=== PATIENT | male | born 1940 | race Caucasian/White ===

== ENCOUNTER → 2016-07-07 | Emergency (ER) | payer MEDICARE, OTHER ==
[~2016-07-07] VITALS: Ht 172.7 cm; Wt 86.2 kg
[~2016-07-07] MED LIST: ACET1TAB45 PO; AMLO10TA4 PO; AMOX500C2 PO; ASPI-999 PO; ATOR80TA64 PO; CARI350T27 PO; D50KC PO; HYDR-757 PO; INSU100I10 SQ; INSU100I14 SQ; LISI40TA PO; METO100T2 PO; NS IV 1000 ML 1,000 ML IV SCH; NS IV 500 ML 500 ML IV SCH; PRIM50TA PO; QUET25TA73 PO; TRAZ-28 PO; cefTRIAXone INJECTION 1,000 MG in NS (IVPB) 50 ML IV ONE; fentaNYL INJECTION 100 MCG/2 ML AMP IVP ONE; inSUlin (REGULAR) HUMAN 1 UNIT/0.01 ML (CHARGE PER UNIT) IV ONE
--- NOTE | 2016-07-07 14:27 | ED Lower Extremity ---
General Chief Complaint: Trauma-Non Activation Stated Complaint: FALL/FACIAL INJURY Nursing Triage Note: SEE TRIAGE NOTE Nursing Sepsis Screen: No Definite Risk Source: patient Exam Limitations: no limitations History of Present Illness Time seen by provider: 14:24 Initial Comments To ER per private vehicle with c/o fall and facial injury. This caused a nosebleed and bruised top lip. He states that he fell because he has been very weak and lightheaded. He's had some intermittent chest pain shortness of breath over the course of the past week. He was going to see his primary care provider at the [facility] in [place] when this fall took place. Onset: just prior to arrival Severity: moderate Method of Injury: fell Modifying Factors: Worse With Movement Allergies and Home Medications Allergies Coded Allergies: metformin (Verified Allergy, Unknown, 10/22/14) Home Medications Amlodipine Besylate 10 Mg Tablet, 10 MG PO DAILY, (Reported) Amoxicillin 500 Mg Capsule, 500 MG PO TID, #21 Prescribed by: VENESSA PAULSON on 07/07/16 1755 Aspirin 81 Mg Tab.chew, 81 MG PO DAILY, (Reported) Atorvastatin Calcium 80 Mg Tablet, 80 MG PO HS, (Reported) Ergocalciferol (Vitamin D2) 50,000 Unit Capsule, 50,000 UNIT PO WEEKLY, ( Reported) Hydrocodone/Acetaminophen 1 Each Tablet, 1 EACH PO Q6H PRN for PAIN-MODERATE, # 10 Prescribed by: VENESSA PAULSON on 07/07/16 1806 Insulin Aspart 300 Units/3 Ml Solution, 10 UNITS SQ TID AC, (Reported) Insulin Glargine,Hum.rec.anlog 100 Unit/1 Ml Insuln.pen, 20 UNIT SQ HS, ( Reported) Lisinopril 40 Mg Tablet, 40 MG PO DAILY, (Reported) Metoprolol Tartrate 100 Mg Tablet, 100 MG PO BID, (Reported) Quetiapine Fumarate 25 Mg Tablet, 100 MG PO HS, #1 Prescribed by: CORDELIA CHAMPION on 10/23/14 1730 Constitutional: see HPI EENTM: epistaxis, see HPI Respiratory: see HPI, short of breath Cardiovascular: see HPI, chest pain Genitourinary: no symptoms reported Musculoskeletal: no symptoms reported Skin: no symptoms reported Psychiatric/Neurological: No Symptoms Reported (portable) Past Ymqjjja-Szthty-Ynsxpm Hx Patient Social History Alcohol Use: Denies Use Recreational Drug Use: Yes (Not since 1990) Smoking Status: Never a Smoker Former Smoker/When Quit: Oct 23, 1990 Recent Foreign Travel: No Contact w/Someone Who Travel: No Recent Infectious Disease Expo: No Recent Hopitalizations: No Seasonal Allergies Seasonal Allergies: Yes Surgeries HX Surgeries: Yes (ELECTRO SHOCK THERAPY, COLONOSCOPY) Respiratory Hx Respiratory Disorders: No Cardiovascular Hx Cardiac Disorders: No Neurological Hx Neurological Disorders: Yes (WAS TOLD HE HAD A STROKE FROM CT) Neurological Disorders: Stroke Genitourinary Hx Genitourinary Disorders: Yes Genitourinary Disorders: Prostate Problems, UTI-Chronic Gastrointestinal Hx Gastrointestinal Disorders: Yes Gastrointestinal Disorders: Polyps, Irritable Bowel Musculoskeletal Hx Musculoskeletal Disorders: Yes Musculoskeletal Disorders: Arthritis, Chronic Back Pain Endocrine Hx Endocrine Disorders: Yes Endocrine Disorders: Diabetes, Insulin dep Cancer Hx Cancer: No Psychosocial Hx Psychiatric Problems: Yes Behavioral Health Disorders: Anxiety, Depression Integumentary HX Skin/Integumentary Disorder: No Blood Transfusions Hx Blood Disorders: No Family Medical History Significant Family History: No Pertinent Family Hx Family Medial History: Alcoholism 19 FATHER Bipass surgery G8 BROTHER Brain cancer 19 MOTHER Diabetes mellitus 19 FATHER Respiratory disorder G8 BROTHER Physical Exam Vital Signs Vital Sign - Last 12Hours 07/07/16 14:00 Temp 98.2 Pulse 91 Resp 18 B/P (MAP) 131/78 Capillary Refill : Less Than 3 Seconds General Appearance: WD/WN, no apparent distress HEENT: PERRL/EOMI, normal ENT inspection Neck: non-tender, full range of motion Cardiovascular: regular rate, rhythm, no murmur Respiratory: normal breath sounds, no respiratory distress, no accessory muscle use Hips: bilateral hip non-tender, bilateral hip normal inspection, bilateral hip normal range of motion Legs: bilateral leg non-tender, bilateral leg normal inspection, bilateral leg normal range of motion Knees: bilateral knee non-tender, bilateral knee normal inspection, bilateral knee normal range of motion Ankles: bilateral ankle non-tender, bilateral ankle normal inspection, bilateral ankle normal range of motion Feet: bilateral foot non-tender, bilateral foot normal inspection, bilateral foot normal range of motion Neurologic/Psychiatric: alert, normal mood/affect, oriented x 3 Skin: normal color, warm/dry Progress/Results/Core Measures Results/Orders Lab Results Laboratory Tests Test 07/07/16 14:21 07/07/16 16:38 5/4/17 16:45 Range/Units White Blood Count 12.6 H 4.3-11.0 10^3/uL Red Blood Count 4.63 4.35-5.85 10^6/uL Hemoglobin 13.8 13.3-17.7 G/DL Hematocrit 40 40-54 % Mean Corpuscular Volume 85 80-99 FL Mean Corpuscular Hemoglobin 30 25-34 PG Mean Corpuscular Hemoglobin Concent 35 32-36 G/DL Red Cell Distribution Width 13.1 10.0-14.5 % Platelet Count 321 130-400 10^3/uL Mean Platelet Volume 9.8 7.4-10.4 FL Neutrophils (%) (Auto) 77 H 42-75 % Lymphocytes (%) (Auto) 13 12-44 % Monocytes (%) (Auto) 10 0-12 % Eosinophils (%) (Auto) 0 0-10 % Basophils (%) (Auto) 0 0-10 % Neutrophils # (Auto) 9.7 H 1.8-7.8 X 10^3 Lymphocytes # (Auto) 1.7 1.0-4.0 X 10^3 Monocytes # (Auto) 1.2 H 0.0-1.0 X 10^3 Eosinophils # (Auto) 0.0 0.0-0.3 10^3/uL Basophils # (Auto) 0.0 0.0-0.1 10^3/uL Sodium Level 130 L 135-145 MMOL/L Potassium Level 4.1 3.6-5.0 MMOL/L Chloride Level 99 98-107 MMOL/L Carbon Dioxide Level 18 L 21-32 MMOL/L Anion Gap 13 5-14 MMOL/L Blood Urea Nitrogen 41 H 7-18 MG/DL Creatinine 1.97 H 0.60-1.30 MG/DL Estimat Glomerular Filtration Rate 33 BUN/Creatinine Ratio 21 Glucose Level 539 *H 70-105 MG/DL Calcium Level 9.0 8.5-10.1 MG/DL Total Bilirubin 0.7 0.1-1.0 MG/DL Aspartate Amino Transf (AST/SGOT) 16 5-34 U/L Alanine Aminotransferase (ALT/SGPT) 17 0-55 U/L Alkaline Phosphatase 79 40-136 U/L Troponin I < 0.30 <0.30 NG/ML Total Protein 6.7 6.4-8.2 G/DL Albumin 3.7 3.2-4.5 G/DL Glucometer 299 H 70-110 MG/DL Urine Color YELLOW Urine Clarity CLEAR Urine pH 5 5-9 Urine Specific [place] 1.015 L 1.016-1.022 Urine Protein 1+ H NEGATIVE Urine Glucose (UA) 4+ H NEGATIVE Urine Ketones 3+ H NEGATIVE Urine Nitrite NEGATIVE NEGATIVE Urine Bilirubin NEGATIVE NEGATIVE Urine Urobilinogen NORMAL NORMAL MG/DL Urine Leukocyte Esterase NEGATIVE NEGATIVE Urine RBC (Auto) NEGATIVE NEGATIVE Urine RBC NONE /HPF Urine WBC NONE /HPF Urine Squamous Epithelial Cells 0-2 /HPF Urine Crystals NONE /LPF Urine Bacteria NONE /HPF Urine Casts NONE /LPF Urine Mucus NEGATIVE /LPF Urine Culture Indicated NO Urine Opiates Screen NEGATIVE NEGATIVE Urine Oxycodone Screen NEGATIVE NEGATIVE Urine Methadone Screen NEGATIVE NEGATIVE Urine Propoxyphene Screen NEGATIVE NEGATIVE Urine Barbiturates Screen NEGATIVE NEGATIVE Ur Tricyclic Antidepressants Screen NEGATIVE NEGATIVE Urine Phencyclidine Screen NEGATIVE NEGATIVE Urine Amphetamines Screen NEGATIVE NEGATIVE Urine Methamphetamines Screen NEGATIVE NEGATIVE Urine Benzodiazepines Screen NEGATIVE NEGATIVE Urine Cocaine Screen NEGATIVE NEGATIVE Urine Cannabinoids Screen NEGATIVE NEGATIVE My Orders Orders - VENESSA PAULSON APRN Ct Head/Face/Cervical Wo (07/07/16 14:23) Chest 1 View, Ap/Pa Only (07/07/16 14:23) Ua Culture If Indicated (07/07/16 14:23) Drug Screen Stat (Urine) (07/07/16 14:23) Cbc With Automated Diff (07/07/16 14:23) Comprehensive Metabolic Panel (07/07/16 14:23) Ekg Tracing (07/07/16 14:23) Troponin I (07/07/16 14:23) Saline Lock/Iv-Start (07/07/16 14:23) Fentanyl Injection (Sublimaze Injection (07/07/16 14:30) Ns Iv 1000 Ml (Sodium Chloride 0.9%) (07/07/16 15:30) Insulin (Regular) Human (Humulin R (Per (07/07/16 15:30) Ceftriaxone Injection (Rocephin Injectio (07/07/16 16:00) Accucheck Stat ONCE (07/07/16 16:31) Ns Iv 500 Ml (Sodium Chloride 0.9%) (07/07/16 17:00) Insulin (Regular) Human (Humulin R (Per (07/07/16 17:00) Accucheck Stat ONCE (07/07/16 17:32) Insulin (Regular) Human (Humulin R (Per (07/07/16 19:00) Medications Given in ED Current Medications Medications Dose Ordered Sig/Oly Route Start Time Stop Time Status Last Admin Dose Admin Ceftriaxone Sodium 1000 mg/ Sodium Chloride 50 ml @ 100 mls/hr ONCE ONCE IV 07/07/16 16:00 07/07/16 16:29 DC 07/07/16 16:57 100 MLS/HR Fentanyl Citrate 50 mcg ONCE ONCE IVP 07/07/16 14:30 07/07/16 14:31 DC 07/07/16 14:37 50 MCG Insulin Human Regular 4 unit ONCE ONCE IV 07/07/16 17:00 07/07/16 17:01 DC 07/07/16 17:07 4 UNIT Insulin Human Regular 10 unit ONCE ONCE IV 07/07/16 15:30 07/07/16 15:31 DC 07/07/16 15:43 10 UNIT Vital Signs/I&O Vital Sign - Last 12Hours 07/07/16 14:00 Temp 98.2 Pulse 91 Resp 18 B/P (MAP) 131/78 Blood Pressure Mean: 95 Diagnostic Imaging Diagonstic Imaging: CT Comments NAME: JHONNY DUTTON [employer] REC#: [id number] PT STATUS: REG ER : 1940 PHYSICIAN: VENESSA PAULSON APRN ADMIT DATE: 07/07/16/ER Signed Date of Exam:07/07/16 CT HEAD/FACE/CERVICAL WO PROCEDURE: CT head, face, and cervical spine without contrast. TECHNIQUE: Multiple contiguous axial images were obtained through the head, neck, and facial bones without the use of intravenous contrast. Sagittal and coronal reformations through the cervical spine and facial bones were also performed. INDICATION: Injury with swelling of the nose. The patient passed out. FINDINGS: CT HEAD: There is no intracranial hemorrhage, edema or mass-effect. The brain parenchyma and huertas-white matter differentiation appear preserved. There is hypodensity in the periventricular white matter and near the genu of the corpus callosum to the left of the midline, likely related to chronic microvascular ischemic changes. There is no hydrocephalus. No extra-axial fluid collection is seen. The calvarium appears grossly unremarkable. CT FACE: There are bilateral nondisplaced nasal bone fractures. Soft tissue air in the nose anterior to the nasal bone margin is seen on both sides. The orbital gallagher are intact. The zygomatic arches are intact. The frontal sinuses, the ethmoid air cells, and the maxillary and sphenoidal sinuses are well-aerated with no hemorrhage or sinus wall fracture seen. The pterygoid plates appear intact. The mandible is intact. The soft tissues and the orbits demonstrate symmetric globes and retrobulbar space with no hemorrhage. CT CERVICAL SPINE: There is satisfactory alignment of the posterior spinal line and at the facet joints. There is slight left convexity curvature seen on the coronal images, which could be positional. There is satisfactory alignment at the lateral masses of C1 and C2 and at the atlantooccipital joints. Only mild rotation of C1 and C2 is appreciated, likely positional. There is no widening of the predental space. The vertebral body heights are preserved. Disc heights are generally preserved, as well. There are small posterior osteophytes at C3/C4 level and at C6/7 level. Severe neuroforaminal narrowing on the right side at C4/5 and C5/6 levels seen. There is probably mild spinal canal stenosis at C3/4 level. IMPRESSION: CT head: No intracranial hemorrhage. CT face: Nondisplaced bilateral nasal bone fractures. Tiny air bubbles are also seen in the soft tissue of the nose just anterior to the nasal bones. CT cervical spine: Advanced degenerative changes. No fracture seen. Dictated by: Dictated on workstation # [id number] Dict: 07/07/16 1506 Trans: 07/07/16 1546 [facility] [id number] Interpreted by: RAYMON MUSA MD Electronically signed by: RAYMON MUSA MD 07/07/16 5906 Departure Communication Progress Notes Patient's blood sugar had gone down to 299. We rechecked it and gone back at 326. We then found out patient's friend had brought him a regular Coca-Cola which he had been drinking (not diet). Impression Impression: Primary Impression: Poorly controlled diabetes mellitus Additional Impression: Nasal bone fracture Disposition: 01 HOME, SELF-CARE Condition: Stable Departure-Patient Inst. Decision time for Depature: 16:31 Referrals: NO,LOCAL PHYSICIAN (PCP/Family) Primary Care Physician Patient Instructions: DIABETES, Nose Fracture Add. Discharge Instructions: 1. Return to ER for any concerns 2. Keep a closer eye on your blood sugar as it was very elevated. Check your blood sugars 4 times daily All discharge instructions reviewed with patient and/or family. Voiced understanding. Scripts Hydrocodone/Acetaminophen ([place] 5-325 Tablet) 1 Each Tablet 1 EACH PO Q6H Y for PAIN-MODERATE, #10 TAB Prov: VENESSA PAULSON APRN 07/07/16 Amoxicillin (Amoxicillin) 500 Mg Capsule 500 MG PO TID, #21 CAP Prov: VENESSA PAULSON APRN 07/07/16 VENESSA PAULSON APRN July 07, 2016 14:27
[2016-07-07 14:41] LABS: BASOPHILS % (AUTO) 0 % (0-10); EOSINOPHILS % (AUTO) 0 % (0-10); LYMPHOCYTES # (AUTO) 1.7 X 10^3 (1.0-4.0); LYMPHOCYTES % (AUTO) 13 % (12-44); MEAN CORPUSCULAR HEMOGLOBIN 30 PG (25-34); MEAN CORPUSCULAR HGB CONC 35 G/DL (32-36); MEAN CORPUSCULAR VOLUME 85 FL (80-99); MEAN PLATELET VOLUME 9.8 FL (7.4-10.4); MONOCYTES # (AUTO) 1.2 X 10^3 (0.0-1.0); MONOCYTES % (AUTO) 10 % (0-12); NEUTROPHILS # (AUTO) 9.7 X 10^3 (1.8-7.8); NEUTROPHILS % (AUTO) 77 % (42-75); PLATELET COUNT 321 10^3/uL (130-400); RED BLOOD COUNT 4.63 10^6/uL (4.35-5.85); RED CELL DISTRIBUTION WIDTH 13.1 % (10.0-14.5); WHITE BLOOD COUNT 12.6 10^3/uL (4.3-11.0)
[2016-07-07 15:00] LABS: ALANINE AMINOTRANSFERASE 17 U/L (0-55); ALBUMIN 3.7 G/DL (3.2-4.5); ANION GAP 13 MMOL/L (5-14); ASPARTATE AMINO TRANSFERASE 16 U/L (5-34); BILIRUBIN,TOTAL 0.7 MG/DL (0.1-1.0); BLOOD UREA NITROGEN 41 MG/DL (7-18); BUN/CREATININE RATIO 21; CARBON DIOXIDE 18 MMOL/L (21-32); CHLORIDE 99 MMOL/L (98-107); CREATININE SERUM 1.97 MG/DL (0.60-1.30); GFR ESTIMATED 33; POTASSIUM 4.1 MMOL/L (3.6-5.0); SODIUM 130 MMOL/L (135-145); TOTAL PROTEIN 6.7 G/DL (6.4-8.2)
[2016-07-07 15:01] LABS: GLUCOSE 539 MG/DL (70-105)
[2016-07-07 15:06] LABS: TROPONIN I < 0.30 NG/ML (<0.30)
--- NOTE | 2016-07-07 15:31 | Diagnostic Imaging Report ---
INDICATION: Fall with facial injury. Frontal chest obtained at 03:16 p.m. Heart is normal in size. Lungs are clear. There is no pneumothorax or pleural fluid. There is no overt bony abnormality in the chest. IMPRESSION: Negative chest. Dictated by: Dictated on workstation # [id number]
--- NOTE | 2016-07-07 15:43 | Diagnostic Imaging Report ---
PROCEDURE: CT head, face, and cervical spine without contrast. TECHNIQUE: Multiple contiguous axial images were obtained through the head, neck, and facial bones without the use of intravenous contrast. Sagittal and coronal reformations through the cervical spine and facial bones were also performed. INDICATION: Injury with swelling of the nose. The patient passed out. FINDINGS: CT HEAD: There is no intracranial hemorrhage, edema or mass-effect. The brain parenchyma and huertas-white matter differentiation appear preserved. There is hypodensity in the periventricular white matter and near the genu of the corpus callosum to the left of the midline, likely related to chronic microvascular ischemic changes. There is no hydrocephalus. No extra-axial fluid collection is seen. The calvarium appears grossly unremarkable. CT FACE: There are bilateral nondisplaced nasal bone fractures. Soft tissue air in the nose anterior to the nasal bone margin is seen on both sides. The orbital gallagher are intact. The zygomatic arches are intact. The frontal sinuses, the ethmoid air cells, and the maxillary and sphenoidal sinuses are well-aerated with no hemorrhage or sinus wall fracture seen. The pterygoid plates appear intact. The mandible is intact. The soft tissues and the orbits demonstrate symmetric globes and retrobulbar space with no hemorrhage. CT CERVICAL SPINE: There is satisfactory alignment of the posterior spinal line and at the facet joints. There is slight left convexity curvature seen on the coronal images, which could be positional. There is satisfactory alignment at the lateral masses of C1 and C2 and at the atlantooccipital joints. Only mild rotation of C1 and C2 is appreciated, likely positional. There is no widening of the predental space. The vertebral body heights are preserved. Disc heights are generally preserved, as well. There are small posterior osteophytes at C3/C4 level and at C6/7 level. Severe neuroforaminal narrowing on the right side at C4/5 and C5/6 levels seen. There is probably mild spinal canal stenosis at C3/4 level. IMPRESSION: CT head: No intracranial hemorrhage. CT face: Nondisplaced bilateral nasal bone fractures. Tiny air bubbles are also seen in the soft tissue of the nose just anterior to the nasal bones. CT cervical spine: Advanced degenerative changes. No fracture seen. Dictated by: Dictated on workstation # [id number]
[2016-07-07 16:51] LABS: BILIRUBIN,URINE NEGATIVE (NEGATIVE); KETONES,URINE 3+ (NEGATIVE); LEUKOCYTE ESTERASE ,URINE NEGATIVE (NEGATIVE); NITRITE,URINE NEGATIVE (NEGATIVE); PH,URINE 5 (5-9); PROTEIN,URINE 1+ (NEGATIVE); UROBILINOGEN,URINE NORMAL (NORMAL)
[2016-07-07 17:02] LABS: SQUAMOUS EPITHELIAL CELL,UR 0-2 /HPF
[2016-07-07 19:02] VITALS: BP 151/69
== END | disposition home or self-care (01) ==
LOC: EDUNIT# 13:54 → ER 13:59
DX: S02.2XXA Fracture of nasal bones, initial encounter for closed fracture (principal); E11.65 Type 2 diabetes mellitus with hyperglycemia; Z87.891 Personal history of nicotine dependence; W19.XXXA Unspecified fall, initial encounter; Y99.8 Other external cause status
CPT/HCPCS: 36415; 70450; 70486; 71010; 72125; 80053; 80306; 81000; 82962; 84484; 85025; 93005; 96361; 96365; 96375; 96376

== ENCOUNTER 2017-02-16 10:00 | Inpatient (IN) | payer MEDICARE ==
[~2017-02-16] VITALS: Ht 172.7 cm; Wt 94.8 kg
[2017-02-16] VITALS (7 sets, daily range): BP systolic 121–177; BP diastolic 53–97
[~2017-02-16 10:00] MED LIST changes: -D50KC PO; +ERGO50006 PO; +METO100T12 PO; -METO100T2 PO; -NS IV 1000 ML 1,000 ML IV SCH; -NS IV 500 ML 500 ML IV SCH; -cefTRIAXone INJECTION 1,000 MG in NS (IVPB) 50 ML IV ONE; -fentaNYL INJECTION 100 MCG/2 ML AMP IVP ONE; -inSUlin (REGULAR) HUMAN 1 UNIT/0.01 ML (CHARGE PER UNIT) IV ONE
[2017-02-16] MEDS ORDERED: ZIPRASIDONE 20 MG INJ (GEODON) VIAL IM ONE ×4 (10:07→11:00)
[2017-02-16] MEDS ORDERED: LORazepam INJ 2 MG/ML (ATIVAN) VIAL ONE (10:07)
[2017-02-16] MEDS ORDERED: WATER (STERILE) FOR INJECTION 20 ML ONE (10:08)
[2017-02-16] MEDS ORDERED: LORazepam INJ 2 MG/ML (ATIVAN) VIAL IM ONE (10:15)
[2017-02-16] MEDS ORDERED: ACETAMINOPHEN 500 MG TAB (TYLENOL) ONE ×2 (10:22→10:28)
[2017-02-16 10:42] LABS: BASOPHILS % (AUTO) 0 % (0-10); EOSINOPHILS % (AUTO) 0 % (0-10); LYMPHOCYTES # (AUTO) 1.4 X 10^3 (1.0-4.0); LYMPHOCYTES % (AUTO) 11 % (12-44); MEAN CORPUSCULAR HEMOGLOBIN 30 PG (25-34); MEAN CORPUSCULAR HGB CONC 33 G/DL (32-36); MEAN CORPUSCULAR VOLUME 91 FL (80-99); MEAN PLATELET VOLUME 9.8 FL (7.4-10.4); MONOCYTES # (AUTO) 1.2 X 10^3 (0.0-1.0); MONOCYTES % (AUTO) 9 % (0-12); NEUTROPHILS % (AUTO) 79 % (42-75); PLATELET COUNT 253 10^3/uL (130-400); RED BLOOD COUNT 3.82 10^6/uL (4.35-5.85); RED CELL DISTRIBUTION WIDTH 13.6 % (10.0-14.5); WHITE BLOOD COUNT 12.7 10^3/uL (4.3-11.0)
[2017-02-16] MEDS ORDERED: LORazepam INJ 2 MG/ML (ATIVAN) VIAL IVP ONE ×2 (10:45→11:00)
[2017-02-16] MEDS ORDERED: NS IV PRN (10:45)
--- NOTE | 2017-02-16 11:00 | ED General ---
General Stated Complaint: GLUCOSE PROBLEMS Source of Information: Patient Exam Limitations: No Limitations History of Present Illness Time Seen by Provider: 10:02 Initial Comments Bill presents to the emergency room via EMS after having a fall in the home. EMS was initially called out somewhere around 08:30 and assessed patient. He was evaluated and seemed alert and oriented. He answered their questions appropriately. He then refused transfer to the emergency room. EMS was called back out to the home by the patient's brother who stated he was becoming increasingly confused. Upon EMS evaluation, patient was indeed found to be confused, in fact he was noted to be psychotic and hallucinating. He is febrile on arrival. He does not seem to be an accurate historian. He is noted to have Parkinson's disease and diabetes. Fingerstick blood sugar by EMS was 336. Patient has scattered abrasions and bruises over his extremities and torso. He denies any injury or pain at this time. Review of chart notes he has been admitted before for psychosis and agitation. He has a history of depression and treatment with electroshock therapy. He also has had an ER visit for fall and poorly controlled diabetes. Patient has been weightbearing but is unsteady and tremoring. Patient was reportedly in arguments with his brother this morning. Patient also sustained an injury to the left great toenail which was bleeding. This was dressed by EMS. Allergies and Home Medications Allergies Coded Allergies: metformin (Verified Allergy, Unknown, 10/22/14) Home Medications Amlodipine Besylate 10 Mg Tablet, 10 MG PO DAILY, (Reported) Amoxicillin 500 Mg Capsule, 500 MG PO TID, #21 Prescribed by: VENESSA PAULSON on 07/07/16 175 Aspirin 81 Mg Tab.chew, 81 MG PO DAILY, (Reported) Atorvastatin Calcium 80 Mg Tablet, 80 MG PO HS, (Reported) Ergocalciferol (Vitamin D2) 50,000 Unit Capsule, 50,000 UNIT PO WEEKLY, ( Reported) Hydrocodone/Acetaminophen 1 Each Tablet, 1 EACH PO Q6H PRN for PAIN-MODERATE, # 10 Prescribed by: VENESSA PAULSON on 07/07/16 1806 Insulin Aspart 300 Units/3 Ml Solution, 10 UNITS SQ TID AC, (Reported) Insulin Glargine,Hum.rec.anlog 100 Unit/1 Ml Insuln.pen, 20 UNIT SQ HS, ( Reported) Lisinopril 40 Mg Tablet, 40 MG PO DAILY, (Reported) Metoprolol Tartrate 100 Mg Tablet, 100 MG PO BID, (Reported) Quetiapine Fumarate 25 Mg Tablet, 100 MG PO HS, #1 Prescribed by: CORDELIA CHAMPION on 10/23/14 1730 Constitutional: see HPI EENTM: no symptoms reported Respiratory: no symptoms reported Cardiovascular: no symptoms reported Gastrointestinal: no symptoms reported Genitourinary: no symptoms reported Musculoskeletal: see HPI Skin: see HPI Psychiatric/Neurological: See HPI Hematologic/Lymphatic: No Symptoms Reported Immunological/Allergic: no symptoms reported Past Nsozrtn-Mhkhby-Bunrbl Hx Patient Social History Recent Hopitalizations: No Seasonal Allergies Seasonal Allergies: Yes Surgeries History of Surgeries: Yes (electroshock therapy, colonoscopy) Respiratory History of Respiratory Disorde: No Cardiovascular History of Cardiac Disorders: No Neurological History of Neurological Disord: Yes Neurological Disorders: Parkinson's Disease, Stroke Genitourinary History of Genitourinary Disor: Yes Genitourinary Disorders: Prostate Problems, UTI-Chronic Gastrointestinal History of Gastrointestinal Di: Yes Gastrointestinal Disorders: Polyps, Irritable Bowel Musculoskeletal History of Musculoskeletal Dis: Yes Musculoskeletal Disorders: Arthritis, Chronic Back Pain Endocrine History of Endocrine Disorders: Yes Endocrine Disorders: Diabetes, Insulin dep HEENT History of HEENT Disorders: No Cancer History of Cancer: No Psychosocial History of Psychiatric Problem: Yes Behavioral Health Disorders: Anxiety, Depression Family Medical History Significant Family History: No Pertinent Family Hx Family Medial History: Alcoholism 19 FATHER Bipass surgery G8 BROTHER Brain cancer 19 MOTHER Diabetes mellitus 19 FATHER Respiratory disorder G8 BROTHER Physical Exam-Suspected Sepsis Physical Exam Vital Signs Vital Sign - Last 12Hours 02/16/17 02/16/17 10:00 11:30 Temp 100.0 Pulse 100 Resp 20 B/P (MAP) 176/84 (114) Pulse Ox 94 O2 Delivery Room Air O2 Flow Rate 3.00 Capillary Refill : General Appearance: WD/WN, Mild Distress (agitated and hallucinating) HEENT: PERRL/EOMI, Normal ENT Inspection, Other (poor dentition, dry oropharynx ) Neck: Normal Inspection Respiratory: Lungs Clear, Normal Breath Sounds, No Accessory Muscle Use, No Respiratory Distress Cardiovascular: Regular Rate, Rhythm, No Edema, No Murmur Gastrointestinal: Normal Bowel Sounds, Non Tender, Soft, Other (ecchymosis on the abdominal wall, likely from insulin injection) Back: Other (superficial scrapes and abrasions on the back) Extremity: Normal Capillary Refill, Other (scattered scrapes and abrasions, especially noted on the knees) Neurologic/Psychiatric: Alert, No Motor/Sensory Deficits, Other (tremors, floridly psychotic, moves all 4 extremities independently and purposefully) Skin: normal color, warm/dry Focused Exam Evaluation Lactate Level Laboratory Tests 02/16/17 10:25: Lactic Acid Level 3.18*H 02/16/17 12:45: Lactic Acid Level 1.21 Lactic Acid Level Laboratory Tests Test 02/16/17 12:45 Lactic Acid Level 1.21 MMOL/L (0.50-2.00) Progress/Results/Core Measures Suspected Sepsis SIRS Temperature: Pulse: Respiratory Rate: Laboratory Tests 02/16/17 10:25: White Blood Count 12.7H Blood Pressure / Mean: Laboratory Tests 02/16/17 10:25: Lactic Acid Level 3.18*H 02/16/17 12:45: Lactic Acid Level 1.21 Laboratory Tests 02/16/17 10:25: Creatinine 1.07, Platelet Count 253, Total Bilirubin 0.5 02/16/17 10:53: INR Comment 1.0 Results/Orders Lab Results Laboratory Tests Test 02/16/17 10:25 02/16/17 10:53 02/16/17 11:41 02/16/17 12:45 Range/Units White Blood Count 12.7 H 4.3-11.0 10^3/uL Red Blood Count 3.82 L 4.35-5.85 10^6/uL Hemoglobin 11.6 L 13.3-17.7 G/DL Hematocrit 35 L 40-54 % Mean Corpuscular Volume 91 80-99 FL Mean Corpuscular Hemoglobin 30 25-34 PG Mean Corpuscular Hemoglobin Concent 33 32-36 G/DL Red Cell Distribution Width 13.6 10.0-14.5 % Platelet Count 253 130-400 10^3/uL Mean Platelet Volume 9.8 7.4-10.4 FL Neutrophils (%) (Auto) 79 H 42-75 % Lymphocytes (%) (Auto) 11 L 12-44 % Monocytes (%) (Auto) 9 0-12 % Eosinophils (%) (Auto) 0 0-10 % Basophils (%) (Auto) 0 0-10 % Neutrophils # (Auto) 10.0 H 1.8-7.8 X 10^3 Lymphocytes # (Auto) 1.4 1.0-4.0 X 10^3 Monocytes # (Auto) 1.2 H 0.0-1.0 X 10^3 Eosinophils # (Auto) 0.0 0.0-0.3 10^3/uL Basophils # (Auto) 0.0 0.0-0.1 10^3/uL Sodium Level 136 135-145 MMOL/L Potassium Level 4.7 3.6-5.0 MMOL/L Chloride Level 103 98-107 MMOL/L Carbon Dioxide Level 22 21-32 MMOL/L Anion Gap 11 5-14 MMOL/L Blood Urea Nitrogen 20 H 7-18 MG/DL Creatinine 1.07 0.60-1.30 MG/DL Estimat Glomerular Filtration Rate > 60 BUN/Creatinine Ratio 19 Glucose Level 329 H 70-105 MG/DL Lactic Acid Level 3.18 *H 1.21 0.50-2.00 MMOL/L Calcium Level 8.6 8.5-10.1 MG/DL Total Bilirubin 0.5 0.1-1.0 MG/DL Aspartate Amino Transf (AST/SGOT) 6 5-34 U/L Alanine Aminotransferase (ALT/SGPT) < 6 0-55 U/L Alkaline Phosphatase 76 40-136 U/L Total Protein 6.8 6.4-8.2 GM/DL Albumin 3.7 3.2-4.5 GM/DL TSH [place] Testing 0.74 0.35-4.94 UIU/ML Salicylates Level 7.3 5.0-20.0 MG/DL Acetaminophen Level < 10 L 10-30 UG/ML Serum Alcohol < 10 <10 MG/DL Prothrombin Time 13.6 12.2-14.7 SEC INR Comment 1.0 0.8-1.4 Activated Partial Thromboplast Time 28 24-35 SEC Urine Color YELLOW Urine Clarity CLEAR Urine pH 5 5-9 Urine Specific Media 1.020 1.016-1.022 Urine Protein 2+ H NEGATIVE Urine Glucose (UA) 3+ H NEGATIVE Urine Ketones 1+ H NEGATIVE Urine Nitrite NEGATIVE NEGATIVE Urine Bilirubin NEGATIVE NEGATIVE Urine Urobilinogen NORMAL NORMAL MG/DL Urine Leukocyte Esterase NEGATIVE NEGATIVE Urine RBC (Auto) 1+ H NEGATIVE Urine RBC RARE /HPF Urine WBC RARE /HPF Urine Squamous Epithelial Cells 0-2 /HPF Urine Crystals NONE /LPF Urine Bacteria TRACE /HPF Urine Casts NONE /LPF Urine Mucus NEGATIVE /LPF Urine Culture Indicated NO Urine Opiates Screen POSITIVE H NEGATIVE Urine Oxycodone Screen NEGATIVE NEGATIVE Urine Methadone Screen POSITIVE H NEGATIVE Urine Propoxyphene Screen NEGATIVE NEGATIVE Urine Barbiturates Screen NEGATIVE NEGATIVE Ur Tricyclic Antidepressants Screen NEGATIVE NEGATIVE Urine Phencyclidine Screen NEGATIVE NEGATIVE Urine Amphetamines Screen NEGATIVE NEGATIVE Urine Methamphetamines Screen POSITIVE H NEGATIVE Urine Benzodiazepines Screen NEGATIVE NEGATIVE Urine Cocaine Screen NEGATIVE NEGATIVE Urine Cannabinoids Screen NEGATIVE NEGATIVE Test 02/16/17 13:55 Range/Units Glucometer 260 H 70-110 MG/DL Micro Results Microbiology 02/16/17 Influenza Types A,B Antigen (YANNA) - Final, Complete My Orders Orders - AMADOR SPENCE MD Ziprasidone Injection (Geodon Injection) (02/16/17 10:15) Lorazepam Injection (Ativan Injection) (02/16/17 10:15) Ziprasidone Injection (Geodon Injection) (02/16/17 10:07) Lorazepam Injection (Ativan Injection) (02/16/17 10:07) Water (Sterile) For Injection (Sterile W (02/16/17 10:08) Acetaminophen Tablet (Tylenol Tablet) (02/16/17 10:22) Acetaminophen Tablet (Tylenol Tablet) (02/16/17 10:28) Lorazepam Injection (Ativan Injection) (02/16/17 10:45) Cbc With Automated Diff (02/16/17 10:32) Comprehensive Metabolic Panel (02/16/17 10:32) Lactic Acid Analyzer (02/16/17 10:32) Blood Culture (02/16/17 10:32) Sputum Culture (02/16/17 10:32) Ua Culture If Indicated (02/16/17 10:32) Protime With Inr (02/16/17 10:32) Partial Thromboplastin Time (02/16/17 10:32) Chest 1 View, Ap/Pa Only (02/16/17 10:32) O2 (02/16/17 10:32) Saline Lock/Iv-Start (02/16/17 10:32) Saline Lock/Iv-Start (02/16/17 10:32) Ns Iv 1000 Ml (Sodium Chloride 0.9%) (02/16/17 10:45) Vital Signs Adult Sepsis Patie Q1H (02/16/17 10:32) Remove Rings In Anticipation O (02/16/17 10:32) Ct Head/Cervical Spine Wo (02/16/17 10:32) Ziprasidone Injection (Geodon Injection) (02/16/17 10:45) Acetaminophen (02/16/17 10:39) Alcohol (02/16/17 10:39) Drug Screen Stat (Urine) (02/16/17 10:39) Salicylate (02/16/17 10:39) Thyroid Analyzer (02/16/17 10:39) Ziprasidone Injection (Geodon Injection) (02/16/17 11:00) Lorazepam Injection (Ativan Injection) (02/16/17 11:00) Panda Cath Insertion (02/16/17 11:00) Influenza A And B Antigens (02/16/17 11:31) Ceftriaxone Injection (Rocephin Injectio (02/16/17 11:45) Medications Given in ED Current Medications Medications Dose Ordered Sig/Oly Route Start Time Stop Time Status Last Admin Dose Admin Acetaminophen 500 mg STK-MED ONCE .ROUTE 02/16/17 10:22 02/16/17 10:24 DC 02/16/17 10:25 500 MG Acetaminophen 500 mg STK-MED ONCE .ROUTE 02/16/17 10:28 02/16/17 10:29 DC 02/16/17 10:30 500 MG Ceftriaxone Sodium 1000 mg/ Sodium Chloride 50 ml @ 100 mls/hr ONCE ONCE IV 02/16/17 11:45 02/16/17 12:14 DC 02/16/17 12:13 100 MLS/HR Lorazepam 1 mg ONCE ONCE IM 02/16/17 10:15 02/16/17 10:16 DC 02/16/17 10:12 1 MG Lorazepam 1 mg ONCE ONCE IVP 02/16/17 10:45 02/16/17 10:46 DC 02/16/17 10:25 1 MG Lorazepam 1 mg ONCE ONCE IVP 02/16/17 11:00 02/16/17 11:01 DC 02/16/17 11:01 1 MG Lorazepam 2 mg STK-MED ONCE .ROUTE 02/16/17 10:07 02/16/17 10:10 DC 02/16/17 10:25 2 MG Sodium Chloride 2,585.49 ml @ 1,292.745 mls/hr PRN PRN IV 02/16/17 10:45 02/16/17 13:28 DC 02/16/17 11:17 1,292.745 MLS/HR Sterile Water 20 ml @ ud STK-MED ONCE .ROUTE 02/16/17 10:08 02/16/17 10:10 DC 02/16/17 10:13 1.2 MLS/HR Ziprasidone 20 mg STK-MED ONCE IM 02/16/17 10:07 02/16/17 10:09 DC 02/16/17 10:13 20 MG Vital Signs/I&O Vital Sign - Last 12Hours 02/16/17 02/16/17 02/16/17 02/16/17 10:00 11:30 12:45 13:10 Temp 100.0 98.1 98.0 Pulse 100 67 67 Resp 20 18 18 B/P (MAP) 176/84 (114) Pulse Ox 94 94 94 O2 Delivery Room Air Nasal Cannula Nasal Cannula OxyMask O2 Flow Rate 3.00 3.00 6.00 Capillary Refill : Progress Note #1: Time: 10:58 Progress Note Patient has been floridly psychotic. As a result he has not been very cooperative with care and evaluation. He has a visual and tactile hallucinations and is acting out toward those hallucinations. He was initially treated with Geodon 20 mg IM and Ativan 1 mg IM. This was followed by Ativan 1 mg IV. He is getting another dose of Ativan 1 mg IV now. Septic workup is underway. Fever is likely contributing to his psychosis. He was given Tylenol 500 mg by mouth. He spit out the second tablet when he found out it was acetaminophen. IV fluids will be initiated once patient is calm enough to tolerate an IV line. CT of the head has also been ordered and will be performed when patient is calm enough. Progress Note #2: Time: 11:29 Progress Note Patient is now sedated. Left foot dressing has been removed. The great toenail is avulsed and attached by a thin band of skin. This was removed. Antibiotic ointment was applied and dressing reapplied. A second IV is being established. IV fluids are infusing. Sepsis is presumed and Rocephin will be initiated. Catheter has been placed and a UA sent. Results are pending. Influenza swab was also obtained. CT head is pending. Progress Note #3: Time: 11:38 Progress Note It was noted in the K tracks history the patient receives Soma and Tylenol with codeine on a regular basis from Dr. Guevara in [place]. Codeine metabolites or Soma withdrawal could be contributing to his symptoms. Progress Note #4: Progress Note No injuries were found on imaging of the head and C-spine. Patient remained fairly sedated after treatment with Geodon and Ativan. Methamphetamines were found in his urine drug screen. This likely is the source of his fever and psychosis. No source of infection was found to suggest sepsis. Diagnostic Imaging Diagonstic Imaging: Xray Plain Films/CT/US/NM/MRI: chest Comments Chest x-ray viewed by me and report reviewed. See report below: NAME: [facility] REC#: [id number] PT STATUS: REG ER : 1940 PHYSICIAN: AMADOR SPENCE MD ADMIT DATE: 02/16/17/ER Draft Date of Exam:02/16/17 CHEST 1 VIEW, AP/PA ONLY INDICATION: Acute confusion. Portable semiupright view of the chest is obtained. Comparison is made to study of 07/07/2016. There is mild cardiomegaly. Pulmonary vascularity is at the upper limits of normal. There is no evidence of pneumothorax or consolidation. IMPRESSION: Pulmonary vascularity is at the upper limits of normal without overt edema. There may be mild cardiac decompensation. Dictated on workstation # [id number] Dict: 02/16/17 1055 Trans: 02/16/17 1059 [id number] Interpreted by: ALFONSO ROGERS MD Diagonstic Imaging: CT Plain Films/CT/US/NM/MRI: c-spine, head Comments CT head and C-spine viewed by me and report reviewed. See report below: NAME: [facility] REC#: [id number] PT STATUS: ADM IN : 1940 PHYSICIAN: AMADOR SPENCE MD ADMIT DATE: 02/16/17/ICU Signed Date of Exam: 02/16/17 CT HEAD/CERVICAL SPINE WO PROCEDURE: CT head and CT cervical spine without contrast. TECHNIQUE: Multiple contiguous axial images were obtained through the brain and cervical spine without the use of intravenous contrast. Sagittal and coronal reformations through the cervical spine were then performed. INDICATION: Fall. FINDINGS: Please note, there is significant motion artifact as the patient is unable to cooperate. Portions of the study were repeated. CT HEAD: No intracranial hemorrhage, edema, or mass effect is clearly evident. No hydrocephalus. No extra-axial fluid collection is noted. The calvarium, orbits, and paranasal sinuses appear grossly unremarkable. CT CERVICAL SPINE: There is significant motion artifact. There is suggestion of alignment abnormality at the C4/5 level at the posterior spinal line. This is, however, favored to be secondary to motion artifact. No obvious fracture is seen. IMPRESSION: CT HEAD: Please note that this is a limited exam due to motion with no obvious intracranial acute process. CT CERVICAL SPINE: Significant motion artifacts despite repeated attempts to do this exam significantly limiting evaluation with no obvious fracture. Alignment abnormality at the C4/5 level described is probably secondary to motion artifact. Lateral radiograph of the C-spine may confirm satisfactory alignment. Dictated by: Dictated on workstation # [id number] Dict: 02/16/17 1225 Trans: 02/16/17 1342 Interpreted by: RAYMON MUSA MD Electronically signed by: RAYMON MUSA MD 02/16/17 1342 Diagonstic Imaging: Xray Plain Films/CT/US/NM/MRI: c-spine Comments C-spine x-ray ordered to follow-up on CT as suggested and report. See report below: NAME: [facility] REC#: [id number] PT STATUS: ADM IN : 1940 PHYSICIAN: VENESSA PAULSON APRN ADMIT DATE: 02/16/17/ICU Signed Date of Exam: 02/16/17 CERVICAL SPINE 3 VIEWS OR LESS Lateral cervical spine radiograph. INDICATION: Abnormal alignment around C4 level on CT scan suspected to be related to motion artifact. FINDINGS: The alignment of the posterior spinal line is satisfactory. The vertebral body heights are preserved. IMPRESSION: Satisfactory alignment of the posterior spinal line. Dictated by: Dictated on workstation # [id number] Dict: 02/16/17 1339 Trans: 02/16/17 8509 Interpreted by: RAYMON MUSA MD Electronically signed by: RAYMON MUSA MD 02/16/17 1459 Departure Communication (Admissions) Time/Spoke to Admitting Phy: 12:10 Communication Case reviewed with Dr. Oscar who is agreeable to admission for further treatment. Time/Spoke to Consulting Phy: 12:30 Communication/Consulting Dr. Whaley was consulted for further trauma evaluation. Patient needs to be reexamined after mental status improves. Impression Impression: Primary Impression: Acute psychosis Additional Impressions: Polysubstance abuse Fall on same level Qualified Codes: W18.30XA - Fall on same level, unspecified, initial encounter Toenail avulsion Qualified Codes: S91.209A - Unspecified open wound of unspecified toe(s) with damage to nail, initial encounter Disposition: ADMITTED INPATIENT Condition: Improved Admissions Decision to Admit Reason: Admit from ER (General) Decision to Admit/Date: Feb 16, 2017 Time/Decision to Admit Time: 10:15 Departure-Patient Inst. Referrals: NO,LOCAL PHYSICIAN (PCP/Family) Primary Care Physician AMADOR SPENCE MD Feb 16, 2017 11:00
[2017-02-16 11:04] LABS: ALANINE AMINOTRANSFERASE < 6 U/L (0-55); ALBUMIN 3.7 GM/DL (3.2-4.5); ANION GAP 11 MMOL/L (5-14); ASPARTATE AMINO TRANSFERASE 6 U/L (5-34); BILIRUBIN,TOTAL 0.5 MG/DL (0.1-1.0); BLOOD UREA NITROGEN 20 MG/DL (7-18); BUN/CREATININE RATIO 19; CALCIUM 8.6 MG/DL (8.5-10.1); CARBON DIOXIDE 22 MMOL/L (21-32); CHLORIDE 103 MMOL/L (98-107); CREATININE SERUM 1.07 MG/DL (0.60-1.30); GFR ESTIMATED > 60; GLUCOSE 329 MG/DL (70-105); POTASSIUM 4.7 MMOL/L (3.6-5.0); SODIUM 136 MMOL/L (135-145); TOTAL PROTEIN 6.8 GM/DL (6.4-8.2)
[2017-02-16 11:05] LABS: ALCOHOL < 10 MG/DL (<10); SALICYLATE 7.3 MG/DL (5.0-20.0)
[2017-02-16 11:06] LABS: ACETAMINOPHEN < 10 UG/ML (10-30)
[2017-02-16 11:22] LABS: PROTHROMBIN TIME PATIENT 13.6 SEC (12.2-14.7)
[2017-02-16] MEDS ORDERED: cefTRIAXone INJECTION 1,000 MG in NS (IVPB) 50 ML IV ONE (11:45)
[2017-02-16 11:47] LABS: BILIRUBIN,URINE NEGATIVE (NEGATIVE); KETONES,URINE 1+ (NEGATIVE); LEUKOCYTE ESTERASE ,URINE NEGATIVE (NEGATIVE); NITRITE,URINE NEGATIVE (NEGATIVE); PH,URINE 5 (5-9); PROTEIN,URINE 2+ (NEGATIVE); UROBILINOGEN,URINE NORMAL (NORMAL)
[2017-02-16 11:54] LABS: SQUAMOUS EPITHELIAL CELL,UR 0-2 /HPF; WBC,URINE RARE /HPF
--- NOTE | 2017-02-16 12:45 | Diagnostic Imaging Report ---
PROCEDURE: CT head and CT cervical spine without contrast. TECHNIQUE: Multiple contiguous axial images were obtained through the brain and cervical spine without the use of intravenous contrast. Sagittal and coronal reformations through the cervical spine were then performed. INDICATION: Fall. FINDINGS: Please note, there is significant motion artifact as the patient is unable to cooperate. Portions of the study were repeated. CT HEAD: No intracranial hemorrhage, edema, or mass effect is clearly evident. No hydrocephalus. No extra-axial fluid collection is noted. The calvarium, orbits, and paranasal sinuses appear grossly unremarkable. CT CERVICAL SPINE: There is significant motion artifact. There is suggestion of alignment abnormality at the C4/5 level at the posterior spinal line. This is, however, favored to be secondary to motion artifact. No obvious fracture is seen. IMPRESSION: CT HEAD: Please note that this is a limited exam due to motion with no obvious intracranial acute process. CT CERVICAL SPINE: Significant motion artifacts despite repeated attempts to do this exam significantly limiting evaluation with no obvious fracture. Alignment abnormality at the C4/5 level described is probably secondary to motion artifact. Lateral radiograph of the C-spine may confirm satisfactory alignment. Dictated by: Dictated on workstation # [id number]
--- OUTSIDE RECORDS SUMMARY | 2017-02-16 13:00 | XMS REPORT | Continuity of Care Document ---
Author Author [facility] Organization [facility] Address Unknown Phone Unavailable Allergies Active Description Code Type Severity Reaction Onset Reported/Identified Relationship to Patient Clinical Status Yes metformin [id number] Drug Allergy Unknown N/A 10/22/2014 Medications There is no data. Problems Date Dx Coded Attending Type Code Diagnosis Diagnosed By 10/23/2014 SILVESTRE SHEETS MD Ot 250.40 DIAB W RENAL MANIFEST, TYPE II OR UNSPEC 10/23/2014 SILVESTRE SHEETS MD Ot 272.4 HYPERLIPIDEMIA NEC/NOS 10/23/2014 SILVESTRE SHEETS MD Ot 296.20 DEPRESS DISORDER-UNSPEC 10/23/2014 SILVESTRE SHEETS MD Ot 300.00 ANXIETY STATE NOS 10/23/2014 SILVESTRE SHEETS MD Ot 333.1 TREMOR NEC 10/23/2014 SILVESTRE SHEETS MD Ot 403.90 HYPTNSV CHR KID DIS, UNSPEC, W CHR KD ST 10/23/2014 SILVESTRE SHEETS MD Ot 585.3 CHRONIC KIDNEY DISEASE, STAGE III (MODER 10/23/2014 SILVESTRE SHEETS MD Ot 787.91 DIARRHEA 10/23/2014 SILVESTRE SHEETS MD Ot V58.67 LONG-TERM (CURRENT) USE OF INSULIN 10/23/2014 SILVESTRE SHEETS MD Ot V58.69 OTH MED,LT,CURRENT USE 07/07/2016 VENESSA PAULSON APRN Ot E11.65 TYPE 2 DIABETES MELLITUS WITH HYPERGLYCE 07/07/2016 VENESSA PAULSON APRN Ot S02.2XXA FRACTURE OF NASAL BONES, INIT ENCNTR FOR 07/07/2016 VENESSA PAULSON APRN Ot W19.XXXA UNSPECIFIED FALL, INITIAL ENCOUNTER 07/07/2016 VENESSA PAULSON APRN Ot Y99.8 OTHER EXTERNAL CAUSE STATUS 07/07/2016 VENESSA PAULSON APRN Ot Z87.891 PERSONAL HISTORY OF NICOTINE DEPENDENCE 07/11/2016 VENESSA PAULSON APRN Ot E11.65 TYPE 2 DIABETES MELLITUS WITH HYPERGLYCE 07/11/2016 KHURRAMVENESSA Marsha SENIOR COLDFUSION DEVELOPER Ot S02.2XXA FRACTURE OF NASAL BONES, INIT ENCNTR FOR 07/11/2016 PAULSONVENESSA CARIAS Marsha SENIOR COLDFUSION DEVELOPER Ot W19.XXXA UNSPECIFIED FALL, INITIAL ENCOUNTER 07/11/2016 VENESSA PAULSON Marsha SENIOR COLDFUSION DEVELOPER Ot Y99.8 OTHER EXTERNAL CAUSE STATUS 07/11/2016 VENESSA PAULSON Marsha SENIOR COLDFUSION DEVELOPER Ot Z87.891 PERSONAL HISTORY OF NICOTINE DEPENDENCE Procedures There is no data. Results Test Result Range Complete blood count (CBC) with automated white blood cell (WBC) differential - 07/07/16 14:21 Blood leukocytes automated count (number/volume) 12.6 10*3/uL 4.3-11.0 Blood erythrocytes automated count (number/volume) 4.63 10*6/uL 4.35-5.85 Venous blood hemoglobin measurement (mass/volume) 13.8 g/dL 13.3-17.7 Blood hematocrit (volume fraction) 40 % 40-54 Automated erythrocyte mean corpuscular volume 85 [foz_us] 80-99 Automated erythrocyte mean corpuscular hemoglobin (mass per erythrocyte) 30 pg 25-34 Automated erythrocyte mean corpuscular hemoglobin concentration measurement ( mass/volume) 35 g/dL 32-36 Automated erythrocyte distribution width ratio 13.1 % 10.0-14.5 Automated blood platelet count (count/volume) 321 10*3/uL 130-400 Automated blood platelet mean volume measurement 9.8 [foz_us] 7.4-10.4 Automated blood neutrophils/100 leukocytes 77 % 42-75 Automated blood lymphocytes/100 leukocytes 13 % 12-44 Blood monocytes/100 leukocytes 10 % 0-12 Automated blood eosinophils/100 leukocytes 0 % 0-10 Automated blood basophils/100 leukocytes 0 % 0-10 Blood neutrophils automated count (number/volume) 9.7 10*3 1.8-7.8 Blood lymphocytes automated count (number/volume) 1.7 10*3 1.0-4.0 Blood monocytes automated count (number/volume) 1.2 10*3 0.0-1.0 Automated eosinophil count 0.0 10*3/uL 0.0-0.3 Automated blood basophil count (count/volume) 0.0 10*3/uL 0.0-0.1 Comprehensive metabolic panel - 07/07/16 14:21 Serum or plasma sodium measurement (moles/volume) 130 mmol/L 135-145 Serum or plasma potassium measurement (moles/volume) 4.1 mmol/L 3.6-5.0 Serum or plasma chloride measurement (moles/volume) 99 mmol/L 98-107 Carbon dioxide 18 mmol/L 21-32 Serum or plasma anion gap determination (moles/volume) 13 mmol/L 5-14 Serum or plasma urea nitrogen measurement (mass/volume) 41 mg/dL 7-18 Serum or plasma creatinine measurement (mass/volume) 1.97 mg/dL 0.60-1.30 Serum or plasma urea nitrogen/creatinine mass ratio 21 NRG Serum or plasma creatinine measurement with calculation of estimated glomerular filtration rate 33 NRG Serum or plasma glucose measurement (mass/volume) 539 mg/dL 70-105 Serum or plasma calcium measurement (mass/volume) 9.0 mg/dL 8.5-10.1 Serum or plasma total bilirubin measurement (mass/volume) 0.7 mg/dL 0.1-1.0 Serum or plasma alkaline phosphatase measurement (enzymatic activity/volume) 79 U/L 40-136 Serum or plasma aspartate aminotransferase measurement (enzymatic activity/ volume) 16 U/L 5-34 Serum or plasma alanine aminotransferase measurement (enzymatic activity/volume ) 17 U/L 0-55 Serum or plasma protein measurement (mass/volume) 6.7 g/dL 6.4-8.2 Serum or plasma albumin measurement (mass/volume) 3.7 g/dL 3.2-4.5 Serum or plasma troponin i.cardiac measurement (mass/volume) - 07/07/16 14:21 Serum or plasma troponin i.cardiac measurement (mass/volume) < ng/ mL <0.30 Capillary blood glucose measurement by glucometer (mass/volume) - 07/07/16 16: 38 Capillary blood glucose measurement by glucometer (mass/volume) 299 mg/dL 70-110 Complete urinalysis with reflex to culture - 07/07/16 16:45 Urine color determination YELLOW NRG Urine clarity determination CLEAR NRG Urine pH measurement by test strip 5 5-9 Specific gravity of urine by test strip 1.015 1.016- 1.022 Urine protein assay by test strip, semi-quantitative 1+ NEGATIVE Urine glucose detection by automated test strip 4+ NEGATIVE Erythrocytes detection in urine sediment by light microscopy NEGATIVE NEGATIVE Urine ketones detection by automated test strip 3+ NEGATIVE Urine nitrite detection by test strip NEGATIVE NEGATIVE Urine total bilirubin detection by test strip NEGATIVE NEGATIVE Urine urobilinogen measurement by automated test strip (mass/volume) NORMAL NORMAL Urine leukocyte esterase detection by dipstick NEGATIVE NEGATIVE Automated urine sediment erythrocyte count by microscopy (number/high power field) NONE NRG Automated urine sediment leukocyte count by microscopy (number/high power field ) NONE NRG Bacteria detection in urine sediment by light microscopy NONE NRG Squamous epithelial cells detection in urine sediment by light microscopy 0-2 NRG Crystals detection in urine sediment by light microscopy NONE NRG Casts detection in urine sediment by light microscopy NONE NRG Mucus detection in urine sediment by light microscopy NEGATIVE NRG Complete urinalysis with reflex to culture NO NRG Urine drug screening test - 07/07/16 16:45 Urine phencyclidine detection by screening method NEGATIVE NEGATIVE Urine benzodiazepines detection by screening method NEGATIVE NEGATIVE Urine cocaine detection NEGATIVE NEGATIVE Urine amphetamines detection by screening method NEGATIVE NEGATIVE Urine methamphetamine detection by screening method NEGATIVE NEGATIVE Urine cannabinoids detection by screening method NEGATIVE NEGATIVE Urine opiates detection by screening method NEGATIVE NEGATIVE Urine barbiturates detection NEGATIVE NEGATIVE Screening urine tricyclic antidepressants detection NEGATIVE NEGATIVE Urine methadone detection by screening method NEGATIVE NEGATIVE Urine oxycodone detection NEGATIVE NEGATIVE Urine propoxyphene detection NEGATIVE NEGATIVE Capillary blood glucose measurement by glucometer (mass/volume) - 07/07/16 18: 10 Capillary blood glucose measurement by glucometer (mass/volume) 326 mg/dL 70-110 Capillary blood glucose measurement by glucometer (mass/volume) - 07/07/16 18: 46 Capillary blood glucose measurement by glucometer (mass/volume) 361 mg/dL 70-110 Complete blood count (CBC) with automated white blood cell (WBC) differential - 02/16/17 10:25 Blood leukocytes automated count (number/volume) 12.7 10*3/uL 4.3-11.0 Blood erythrocytes automated count (number/volume) 3.82 10*6/uL 4.35-5.85 Venous blood hemoglobin measurement (mass/volume) 11.6 g/dL 13.3-17.7 Blood hematocrit (volume fraction) 35 % 40-54 Automated erythrocyte mean corpuscular volume 91 [foz_us] 80-99 Automated erythrocyte mean corpuscular hemoglobin (mass per erythrocyte) 30 pg 25-34 Automated erythrocyte mean corpuscular hemoglobin concentration measurement ( mass/volume) 33 g/dL 32-36 Automated erythrocyte distribution width ratio 13.6 % 10.0-14.5 Automated blood platelet count (count/volume) 253 10*3/uL 130-400 Automated blood platelet mean volume measurement 9.8 [foz_us] 7.4-10.4 Automated blood neutrophils/100 leukocytes 79 % 42-75 Automated blood lymphocytes/100 leukocytes 11 % 12-44 Blood monocytes/100 leukocytes 9 % 0-12 Automated blood eosinophils/100 leukocytes 0 % 0-10 Automated blood basophils/100 leukocytes 0 % 0-10 Blood neutrophils automated count (number/volume) 10.0 10*3 1.8-7.8 Blood lymphocytes automated count (number/volume) 1.4 10*3 1.0-4.0 Blood monocytes automated count (number/volume) 1.2 10*3 0.0-1.0 Automated eosinophil count 0.0 10*3/uL 0.0-0.3 Automated blood basophil count (count/volume) 0.0 10*3/uL 0.0-0.1 Blood lactic acid measurement (moles/volume) - 02/16/17 10:25 Blood lactic acid measurement (moles/volume) 3.18 mmol/L 0.50-2.00 Comprehensive metabolic panel - 02/16/17 10:25 Serum or plasma sodium measurement (moles/volume) 136 mmol/L 135-145 Serum or plasma potassium measurement (moles/volume) 4.7 mmol/L 3.6-5.0 Serum or plasma chloride measurement (moles/volume) 103 mmol/L 98-107 Carbon dioxide 22 mmol/L 21-32 Serum or plasma anion gap determination (moles/volume) 11 mmol/L 5-14 Serum or plasma urea nitrogen measurement (mass/volume) 20 mg/dL 7-18 Serum or plasma creatinine measurement (mass/volume) 1.07 mg/dL 0.60-1.30 Serum or plasma urea nitrogen/creatinine mass ratio 19 NRG Serum or plasma creatinine measurement with calculation of estimated glomerular filtration rate > NRG Serum or plasma glucose measurement (mass/volume) 329 mg/dL 70-105 Serum or plasma calcium measurement (mass/volume) 8.6 mg/dL 8.5-10.1 Serum or plasma total bilirubin measurement (mass/volume) 0.5 mg/dL 0.1-1.0 Serum or plasma alkaline phosphatase measurement (enzymatic activity/volume) 76 U/L 40-136 Serum or plasma aspartate aminotransferase measurement (enzymatic activity/ volume) 6 U/L 5-34 Serum or plasma alanine aminotransferase measurement (enzymatic activity/volume ) < U/L 0-55 Serum or plasma protein measurement (mass/volume) 6.8 g/dL 6.4-8.2 Serum or plasma albumin measurement (mass/volume) 3.7 g/dL 3.2-4.5 Serum or plasma thyrotropin measurement by detection limit <=0.05 miu/l (units/ volume) - 02/16/17 10:25 Serum or plasma thyrotropin measurement by detection limit <=0.05 miu/l (units/ volume) 0.74 u[iU]/mL 0.35-4.94 Serum or plasma salicylates measurement (mass/volume) - 02/16/17 10:25 Serum or plasma salicylates measurement (mass/volume) 7.3 mg/dL 5.0-20.0 Serum or plasma acetaminophen measurement (mass/volume) - 02/16/17 10:25 Serum or plasma acetaminophen measurement (mass/volume) < ug/mL 10-30 Serum or plasma ethanol measurement (mass/volume) - 02/16/17 10:25 Serum or plasma ethanol measurement (mass/volume) < mg/dL <10 PT panel in platelet poor plasma by coagulation assay - 02/16/17 10:53 Prothrombin time (PT) in platelet poor plasma by coagulation assay 13.6 s 12.2-14.7 INR in platelet poor plasma or blood by coagulation assay 1.0 0.8-1.4 Activated partial thromboplastin time (aPTT) in platelet poor plasma bycoagulation assay - 02/16/17 10:53 Activated partial thromboplastin time (aPTT) in platelet poor plasma bycoagulation assay 28 s 24-35 Influenza virus A and B antigen detection - 02/16/17 11:23 FLU RESULT NEGATIVE FOR INFLUENZA A AND B ANTIGENS BY IA NRG Complete urinalysis with reflex to culture - 02/16/17 11:41 Urine color determination YELLOW NRG Urine clarity determination CLEAR NRG Urine pH measurement by test strip 5 5-9 Specific gravity of urine by test strip 1.020 1.016- 1.022 Urine protein assay by test strip, semi-quantitative 2+ NEGATIVE Urine glucose detection by automated test strip 3+ NEGATIVE Erythrocytes detection in urine sediment by light microscopy 1+ NEGATIVE Urine ketones detection by automated test strip 1+ NEGATIVE Urine nitrite detection by test strip NEGATIVE NEGATIVE Urine total bilirubin detection by test strip NEGATIVE NEGATIVE Urine urobilinogen measurement by automated test strip (mass/volume) NORMAL NORMAL Urine leukocyte esterase detection by dipstick NEGATIVE NEGATIVE Automated urine sediment erythrocyte count by microscopy (number/high power field) RARE NRG Automated urine sediment leukocyte count by microscopy (number/high power field ) RARE NRG Bacteria detection in urine sediment by light microscopy TRACE NRG Squamous epithelial cells detection in urine sediment by light microscopy 0-2 NRG Crystals detection in urine sediment by light microscopy NONE NRG Casts detection in urine sediment by light microscopy NONE NRG Mucus detection in urine sediment by light microscopy NEGATIVE NRG Complete urinalysis with reflex to culture NO NRG Urine drug screening test - 02/16/17 11:41 Urine phencyclidine detection by screening method NEGATIVE NEGATIVE Urine benzodiazepines detection by screening method NEGATIVE NEGATIVE Urine cocaine detection NEGATIVE NEGATIVE Urine amphetamines detection by screening method NEGATIVE NEGATIVE Urine methamphetamine detection by screening method POSITIVE NEGATIVE Urine cannabinoids detection by screening method NEGATIVE NEGATIVE Urine opiates detection by screening method POSITIVE NEGATIVE Urine barbiturates detection NEGATIVE NEGATIVE Screening urine tricyclic antidepressants detection NEGATIVE NEGATIVE Urine methadone detection by screening method POSITIVE NEGATIVE Urine oxycodone detection NEGATIVE NEGATIVE Urine propoxyphene detection NEGATIVE NEGATIVE Encounters ACCT No. Visit Date/Time Discharge Status Pt. Type Provider Facility Loc./Unit Complaint [id number] 07/07/2016 13:59:00 07/07/2016 19:02:00 DIS Emergency VENESSA PAULSON APRN [facility] ER FALL/FACIAL INJURY [id number] 10/15/2015 09:55:00 10/15/2015 23:59:59 CLS Preadmit KE LINTON, OSMANY [facility] REHAB [id number] 10/22/2014 22:59:00 10/23/2014 18:23:00 DIS Inpatient SUDEEP LINTON, SILVESTRE Martinez [facility] 4TH [id number] 02/16/2017 12:17:00 ACT Inpatient KASI DAVALOS DO [facility] ICU ACUTE PSYCHOSIS
[2017-02-16] MEDS ORDERED: CATHETER FLUSH 10 ML SYR IV PRN (13:30)
[2017-02-16] MEDS: LORazepam INJ 2 MG/ML (ATIVAN) VIAL IV PRN ×4 (13:37→22:57)
--- NOTE | 2017-02-16 13:43 | Diagnostic Imaging Report ---
Lateral cervical spine radiograph. INDICATION: Abnormal alignment around C4 level on CT scan suspected to be related to motion artifact. FINDINGS: The alignment of the posterior spinal line is satisfactory. The vertebral body heights are preserved. IMPRESSION: Satisfactory alignment of the posterior spinal line. Dictated by: Dictated on workstation # [id number]
[2017-02-16] MEDS: NS IV 1000 ML 1,000 ML IV SCH ×2 (15:26→22:21)
[2017-02-16] MEDS ORDERED: INFLUENZA TRIvalent 2017-2018 0.5 ML/45 MCG SYR IM ONE (17:45)
[2017-02-16] MEDS: inSUlin ASPART (NovoLOG) 1 UNIT/0.01 ML (CHARGE PER UNIT) SC SCH (18:56)
--- NOTE | 2017-02-16 19:15 | Consultation ---
History of Present Illness History of Present Illness Patient Consulted On(homero/time) 02/16/17 19:12 Date Seen by Provider: Feb 16, 2017 Time Seen by Provider: 18:25 Reason for Visit: mental status changes and hyperglycemia History of Present Illness this gentleman has diabetes and was reportedly confused when his family members found him at home. There was a question about a fall and he has since been evaluated at the emergency room, conforming to ATLS protocol. Allergies and Home Medications Allergies Coded Allergies: metformin (Verified Allergy, Unknown, 10/22/14) Home Medications Amlodipine Besylate 10 Mg Tablet, 10 MG PO DAILY, (Reported) Amoxicillin 500 Mg Capsule, 500 MG PO TID, #21 Prescribed by: VENESSA PAULSON on 07/07/16 1755 Aspirin 81 Mg Tab.chew, 81 MG PO DAILY, (Reported) Atorvastatin Calcium 80 Mg Tablet, 80 MG PO HS, (Reported) Ergocalciferol (Vitamin D2) 50,000 Unit Capsule, 50,000 UNIT PO WEEKLY, ( Reported) Hydrocodone/Acetaminophen 1 Each Tablet, 1 EACH PO Q6H PRN for PAIN-MODERATE, # 10 Prescribed by: VENESSA PAULSON on 07/07/16 1806 Insulin Aspart 300 Units/3 Ml Solution, 10 UNITS SQ TID AC, (Reported) Insulin Glargine,Hum.rec.anlog 100 Unit/1 Ml Insuln.pen, 20 UNIT SQ HS, ( Reported) Lisinopril 40 Mg Tablet, 40 MG PO DAILY, (Reported) Metoprolol Tartrate 100 Mg Tablet, 100 MG PO BID, (Reported) Quetiapine Fumarate 25 Mg Tablet, 100 MG PO HS, #1 Prescribed by: CORDELIA CHAMPION on 10/23/14 1730 Past Oqeluxx-Eamjjj-Ypmoam Hx Patient Social History Alcohol Use: Denies Use Recreational Drug Use: Yes Drug of Choice: meth Smoking Status: Unknown if Ever Smoked Recent Foreign Travel: No Contact w/Someone Who Travel: No Recent Infectious Disease Expo: No Recent Hopitalizations: No Seasonal Allergies Seasonal Allergies: Yes Surgeries History of Surgeries: Yes (electroshock therapy, colonoscopy) Respiratory History of Respiratory Disorde: No Cardiovascular History of Cardiac Disorders: No Neurological History of Neurological Disord: Yes Neurological Disorders: Parkinson's Disease, Stroke Genitourinary History of Genitourinary Disor: Yes Genitourinary Disorders: Prostate Problems, UTI-Chronic Gastrointestinal History of Gastrointestinal Di: Yes Gastrointestinal Disorders: Polyps, Irritable Bowel Musculoskeletal History of Musculoskeletal Dis: Yes Musculoskeletal Disorders: Arthritis, Chronic Back Pain Endocrine History of Endocrine Disorders: Yes Endocrine Disorders: Diabetes, Insulin dep HEENT History of HEENT Disorders: No Cancer History of Cancer: No Psychosocial History of Psychiatric Problem: Yes Behavioral Health Disorders: Anxiety, Depression Integumentary History of Skin or Integumenta: No Blood Transfusions History of Blood Disorders: No Family Medical History Significant Family History: No Pertinent Family Hx Family Medial History: Alcoholism 19 FATHER Bipass surgery G8 BROTHER Brain cancer 19 MOTHER Diabetes mellitus 19 FATHER Respiratory disorder G8 BROTHER Review of Systems-General Constitutional: see HPI EENTM: see HPI Respiratory: see HPI Cardiovascular: see HPI Gastrointestinal: see HPI Genitourinary: see HPI Musculoskeletal: see HPI Skin: see HPI Psychiatric/Neurological: Tremors Physical Exam-General Problems Physical Exam Vital Signs Vital Sign - Last 12Hours 02/16/17 02/16/17 10:00 11:30 Temp 100.0 Pulse 100 Resp 20 B/P (MAP) 176/84 (114) Pulse Ox 94 O2 Delivery Room Air O2 Flow Rate 3.00 Capillary Refill : Less Than 3 Seconds HEENT: normal ENT inspection Neck: normal inspection Respiratory: lungs clear Cardiovascular: regular rate, rhythm Gastrointestinal: soft, other Rectal: deferred Extremities: other Comments multiple punctate lesions all over his body. Left toenail avulsed reportedly by a self inflicted mechanism Assessment/Plan Assessment/Plan Admission Diagnosis/Plan gentleman with methamphetamine use. Diabetes. Mental status changes. Negative for trauma evaluation. Recommend continuing optimal medical therapy Clinical Quality Measures DVT/VTE Risk/Contraindication: Risk Factor Score Per Nursin RFS Level Per Nursing on Admit: 4+=Very High GIRMA RAMOS MD Feb 16, 2017 19:15
[2017-02-16] MEDS ORDERED: NS W/KCL 20 MEQ/L 1,000 ML IV ONE (22:24)
[2017-02-16] MEDS ORDERED: POTASSIUM CHLORIDE INJ 20 MEQ in NS IV 1000 ML 1,000 ML IV SCH (22:30)
[2017-02-16] MEDS ORDERED: WATER (STERILE) FOR INJECTION 10 ML ONE (23:02)
[2017-02-16] MEDS: ZIPRASIDONE 20 MG INJ (GEODON) VIAL IM PRN (23:08)
[2017-02-17] VITALS (30 sets, daily range): BP systolic 87–189; BP diastolic 48–150
[2017-02-17] MEDS: inSUlin ASPART (NovoLOG) 1 UNIT/0.01 ML (CHARGE PER UNIT) SC SCH ×4 (00:58→18:36)
[2017-02-17] MEDS: ACETAMINOPHEN 650 MG SUPP (TYLENOL) PR PRN (03:57)
[2017-02-17 03:59] LABS: BILIRUBIN,URINE NEGATIVE (NEGATIVE); KETONES,URINE NEGATIVE (NEGATIVE); LEUKOCYTE ESTERASE ,URINE 1+ (NEGATIVE); NITRITE,URINE NEGATIVE (NEGATIVE); PH,URINE 5 (5-9); PROTEIN,URINE 2+ (NEGATIVE); UROBILINOGEN,URINE NORMAL (NORMAL)
[2017-02-17 04:04] LABS: ABG HCO3 22 MMOL/L (23-27); ABG OXYGEN SATURATION 95 % (94-100); ABG PCO2 44 MMHG (35-45); ABG PO2 76 MMHG (79-93); ABG TCO2 23.6 MMOL/L (21.0-31.0)
[2017-02-17 04:07] LABS: SQUAMOUS EPITHELIAL CELL,UR 0-2 /HPF; WBC,URINE 0-2 /HPF
[2017-02-17 04:08] LABS: ABG PH 7.34 (7.37-7.43); ALLENS TEST YES-POS
[2017-02-17 04:09] LABS: PATIENT TEMP 102.3
[2017-02-17] MEDS ORDERED: AMPICILLIN/SULBACTAM 3 GM VIAL (UNASYN) IM SCH (04:30)
[2017-02-17] MEDS: LORazepam INJ 2 MG/ML (ATIVAN) VIAL IV PRN ×4 (04:30→18:23)
[2017-02-17 04:35] LABS: BASOPHILS % (AUTO) 0 % (0-10); EOSINOPHILS % (AUTO) 0 % (0-10); LYMPHOCYTES # (AUTO) 2.1 X 10^3 (1.0-4.0); LYMPHOCYTES % (AUTO) 12 % (12-44); MEAN CORPUSCULAR HEMOGLOBIN 31 PG (25-34); MEAN CORPUSCULAR HGB CONC 33 G/DL (32-36); MEAN CORPUSCULAR VOLUME 93 FL (80-99); MEAN PLATELET VOLUME 9.4 FL (7.4-10.4); MONOCYTES # (AUTO) 1.7 X 10^3 (0.0-1.0); MONOCYTES % (AUTO) 10 % (0-12); NEUTROPHILS % (AUTO) 77 % (42-75); PLATELET COUNT 238 10^3/uL (130-400); RED BLOOD COUNT 3.89 10^6/uL (4.35-5.85); WHITE BLOOD COUNT 16.8 10^3/uL (4.3-11.0)
[2017-02-17] MEDS ORDERED: HALOPERIDOL 5 MG/ML (HALDOL) AMP ONE (04:37)
[2017-02-17] MEDS ORDERED: morphine INJ 4 MG/ML 1 ML (VIAL/SYRINGE) ONE (04:37)
[2017-02-17] MEDS: morphine INJ 4 MG/ML 1 ML (VIAL/SYRINGE) IVP PRN ×2 (04:43→12:38)
[2017-02-17] MEDS ORDERED: HALOPERIDOL 5 MG/ML (HALDOL) AMP IV ONE (04:45)
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
[2017-02-17 04:58] LABS: ALANINE AMINOTRANSFERASE 18 U/L (0-55); ALBUMIN 3.1 GM/DL (3.2-4.5); ANION GAP 9 MMOL/L (5-14); ASPARTATE AMINO TRANSFERASE 9 U/L (5-34); BLOOD UREA NITROGEN 13 MG/DL (7-18); BUN/CREATININE RATIO 17; CARBON DIOXIDE 22 MMOL/L (21-32); CHLORIDE 111 MMOL/L (98-107); CREATININE SERUM 0.78 MG/DL (0.60-1.30); GFR ESTIMATED > 60; GLUCOSE 148 MG/DL (70-105); MAGNESIUM 1.5 MG/DL (1.8-2.4); POTASSIUM 4.6 MMOL/L (3.6-5.0); SODIUM 142 MMOL/L (135-145)
[2017-02-17 05:07] LABS: BAND NEUTROPHILS 3 %; LYMPHOCYTES % (MANUAL) 10 %; NEUTROPHILS % (MANUAL) 81 %
[2017-02-17] MEDS ORDERED: PHARMACY TO DOSE IV SCH (05:15)
[2017-02-17] MEDS: DEXMEDETOMIDINE INJECTION 400 MCG in NS (IVPB) 100 ML IV SCH (05:57)
[2017-02-17] MEDS: MAGNESIUM 1 GM/100 ML IVPB 100 ML IV SCH ×4 (06:06→08:08)
[2017-02-17] MEDS ORDERED: NS W/KCL 20 MEQ/L 1,000 ML IV ONE (06:27)
[2017-02-17] MEDS ORDERED: VANCOMYCIN 1,750 MG/NS 500 ML IVPB IV NR ×2 (06:54)
[2017-02-17] MEDS ORDERED: FUROSEMIDE 40 MG/4 ML INJ (LASIX) IVP NR (07:15)
--- NOTE | 2017-02-17 07:31 | Diagnostic Imaging Report ---
Portable upright radiograph of the chest. INDICATION: Shortness of breath. FINDINGS: The heart size is borderline enlarged. There is predominantly interstitial infiltrates seen bilaterally. There is no effusion or pneumothorax. The mediastinum and geraldo appear unremarkable. IMPRESSION: Prominent interstitial thickening may relate to interstitial pulmonary edema or interstitial pneumonia. Correlate clinically. Dictated by: Dictated on workstation # [id number]
[2017-02-17] MEDS: AMPICILLIN/SULBACTAM INJECTION 3 GM in NS (IVPB) 100 ML IV SCH ×3 (08:19→18:40)
[2017-02-17] MEDS: POTASSIUM CL 10MEQ/50ML IVPB 50 ML IV SCH ×4 (09:06→13:00)
[2017-02-17] MEDS ORDERED: INSU100I10 SQ (09:33)
[2017-02-17] MEDS ORDERED: CARI350T PO (09:33)
[2017-02-17] MEDS ORDERED: ASPI-983 PO (09:33)
[2017-02-17] MEDS ORDERED: CARB1TAB41 PO (09:33)
[2017-02-17] MEDS ORDERED: VENL150T PO (09:33)
[2017-02-17] MEDS ORDERED: TRAZ100T92 PO (09:33)
[2017-02-17] MEDS ORDERED: TAMS0.4C98 PO (09:33)
[2017-02-17] MEDS ORDERED: ACET-2267 PO (09:33)
[2017-02-17] MEDS ORDERED: MIRT15TA6 PO (09:33)
[2017-02-17] MEDS ORDERED: FLUT16SP22 NS (09:33)
[2017-02-17] MEDS ORDERED: DICL100G18 TP (09:33)
[2017-02-17] MEDS ORDERED: PRIM50TA PO (09:33)
[2017-02-17] MEDS ORDERED: ACETAMINOPHEN 650 MG SUPP (TYLENOL) PR NR (10:00)
[2017-02-17 10:04] LABS: ABG BASE EXCESS -1.2 MMOL/L (-2.5-2.5); ABG HCO3 23 MMOL/L (23-27); ABG OXYGEN SATURATION 96 % (94-100); ABG PCO2 41 MMHG (35-45); ABG PH 7.37 (7.37-7.43); ABG PO2 77 MMHG (79-93); ABG TCO2 24.2 MMOL/L (21.0-31.0); ALLENS TEST YES-POS; PATIENT TEMP 101.2
--- NOTE | 2017-02-17 11:43 | History & Physical-Hospitalist ---
HPI History of Present Illness: HPI/Chief Complaint CC: Acute psychosis HPI: This is a 76yoWM pt who presented with acute psychosis and methamphetamine usage noted on UDS in ER. I am unsure how he arrived to ER. console operator: Pt has been doing better since biPAP initiated, but had an episode of trashing and moaning. Pt looks terrible per RN Pt is retracting a lot, ABG done and on BiPAP now Possibly needs intubation if declines further RT is seeing pt BNP checked, Lasix given Pt has not been verbally responding to family psychologist has not visited RT Review: Pt is not responding to BiPAP Pt has calmed down a bit Dr. Doty was called Patient Interview: Pt was not alert during interview I assessed the records from [facility] admit 11/07/14 and see h/o Rx abuse and Meth use in the 1970's and has required ECT for depression yrs ago. Scribed by Briana Gonzalez under direct supervision of Dr. Janina Oscar. Source: RN/MD Exam Limitations: clinical condition Date Seen 02/17/17 Time Seen by Provider: 10:30 Attending Physician Janina Oscar DO PCP No,Local Physician Referring Physician Date of Admission Feb 16, 2017 at 12:17 Home Medications & Allergies Home Medications Reviewed patient Home Medication Reconciliation Form Allergies Allergies Coded Allergies metformin (Verified Allergy, Unknown, 10/22/14) Past Cgqmoxn-Shibff-Nmfmgl Hx Patient Social History Employed/Student: retired (pharmacist) Alcohol Use: Denies Use Recreational Drug Use: Yes Drug of Choice: meth Smoking Status: Former Smoker Physical Abuse Screen: No Sexual Abuse: No Recent Foreign Travel: No Contact w/other who traveled: No Recent Hopitalizations: No Recent Infectious Disease Expo: No Seasonal Allergies Seasonal Allergies: Yes Surgeries Yes (electroshock therapy, colonoscopy) Respiratory No Cardiovascular Yes High Cholesterol, Hypertension Neurological Yes Parkinson's Disease, Stroke Genitourinary Yes Prostate Problems, Bladder Infection, UTI-Chronic Gastrointestinal Yes Polyps, Irritable Bowel Musculoskeletal Yes Arthritis, Chronic Back Pain Endocrine History of Endocrine Disorders: Yes Endocrine Disorders: Diabetes, Insulin dep HEENT History of HEENT Disorders: No Cancer No Psychosocial History of Psychiatric Problem: Yes Behavioral Health Disorders: Anxiety, Suicide Attempts, Depression Integumentary History of Skin or Integumenta: No Blood Transfusions History of Blood Disorders: No Family Medical History Significant Family History: No Pertinent Family Hx Family Hx: Alcoholism 19 FATHER Bipass surgery G8 BROTHER Brain cancer 19 MOTHER Diabetes mellitus 19 FATHER Respiratory disorder G8 BROTHER Review of Systems ROS-Unable to Obtain: unobtainable due to psychosis Constitutional: see HPI, dizziness, fever, weakness Physical Exam Physical Exam Vital Signs Vital Sign - Last 12Hours 02/16/17 02/16/17 10:00 11:30 Temp 100.0 Pulse 100 Resp 20 B/P (MAP) 176/84 (114) Pulse Ox 94 O2 Delivery Room Air O2 Flow Rate 3.00 Capillary Refill : Less Than 3 Seconds General Appearance: Chronically ill, Mild Distress (improved since on biPAP), Obese Neck: Full Range of Motion, Normal Inspection Respiratory: Crackles Cardiovascular: Tachycardia Extremity: Normal Capillary Refill, Normal Inspection Neurologic/Psychiatric: Disoriented x3 Results Results/Procedures Lab Laboratory Tests 02/16/17 10:25 02/17/17 04:20 Assessment/Plan Admission Diagnosis Assessment: Acute psychosis with fever, elevated lactic acid and Meth on UDS in patient w/h/ o Rx med abuse in the past and amphetamine use in 1970's Depression previous suicide ideation 11/07/14 H admit HTN BPH DM Chronic UTI CVA hx Assessment and Plan Plan: Cardiology consult for volume overload and monitor Lasix administration Monitor pt closely since may require intubation Tylenol suppository for rfever Abx empiric treatment Clinical Quality Measures DVT/VTE Risk/Contraindication: Risk Factor Score Per Nursin RFS Level Per Nursing on Admit: 4+=Very High JANINA OSCAR DO Feb 17, 2017 11:43
--- NOTE | 2017-02-17 13:13 | Consultation-Cardiology ---
HPI-Cardiology Cardiology Consultation: Date of Consultation 02/17/17 Date of Admission Attending Physician Janina Oscar DO Admitting Physician Elizabet,Local Physician Consulting Physician Mumtaz BARONE MD HPI: Time Seen by Provider: 13:09 Chief Complaint: heart failure this is a 76-year-old gentleman who has extensive history. He has history of methamphetamine use. 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 Diabetes, hypertension, stroke. No known cardiac history. He presents with altered mental status. History is limited since the patient is not cohesive. Decrease oxygen saturation was noted therefore he is on BiPAP. Review of Systems-Cardiology Review of Systems Constitutional: As described under HPI Eyes: As described under HPI Ears/Nose/Throat: As described under HPI Respiratory: shortness of breath Cardiovascular: As described under HPI Gastrointestinal: No no symptoms reported, No As described under HPI, No abdomen distended, No abdominal pain, No blood streaked bowels, No constipation , No diarrhea, No difficulty swallowing, No nausea, No poor appetite, No poor fluid intake, No rectal bleeding, No vomiting, No other, No nausea/vomiting/ diarrhea, No stool coloration changes Genitourinary: No no symptoms reported, No As described under HPI, No burning, No dysuria, No discharge, No frequency, No flank pain, No hematuria, No incontinence, No pain, No urgency, No other, No urine frequency changes, No urine coloration changes Musculoskeletal: No no symptoms reported, No As describe under HPI, No back pain, No gout, No joint pain, No joint swelling, No muscle pain, No muscle stiffness, No neck pain, No other Skin: No no symptoms reported, No As described under HPI, No change in color, No change in hair/nails, No dryness, No lesions, No lumps, No rash, No other, No skin related problems, No ulcerations, No rash on exposed areas, No ulcerations on exposed areas Psychiatric/Neurological: As described under HPI Hematologic: No no symptoms reported, No As described under HPI, No anemia, No blood clots, No easy bleeding, No easy bruising, No swollen glands, No other, No bleeding abnormalities ZYB-Btyctu-Alxpwo Hx Patient Social History Employed/Student: retired (pharmacist) Alcohol Use: Denies Use Recreational Drug Use: Yes Drug of Choice: meth Smoking Status: Former Smoker Former smoker/When Quit: Oct 23, 1990 Recent Foreign Travel: No Recent Infectious Disease Expo: No Hospitalization with Isolation: Denies Physical Abuse Screen: No Sexual Abuse: No Past Medical History PMH As described under Assessment. Family Medical History Family History: Alcoholism 19 FATHER Bipass surgery G8 BROTHER Brain cancer 19 MOTHER Diabetes mellitus 19 FATHER Respiratory disorder G8 BROTHER Allergies and Home Medications Allergies Coded Allergies: metformin (Verified Allergy, Unknown, 10/22/14) Home Medications Acetaminophen 500 Mg Tablet, 1,000 MG PO Q8H PRN for MILD PAIN/FEVER, (Reported) Aspirin 81 Mg Tablet.dr, 81 MG PO DAILY, (Reported) Atorvastatin Calcium 80 Mg Tablet, 80 MG PO HS, (Reported) Carbidopa/Levodopa 1 Each Tablet.er, 1 TAB PO TID, (Reported) Carisoprodol 350 Mg Tablet, 350 MG PO QID, (Reported) Diclofenac Sodium 100 Gm Gel..gram., 2 GM TP QID PRN for MUSCLE PAIN, (Reported) Fluticasone Propionate 16 Gm Molino.susp, 2 SPRAYS NS DAILY PRN for CONGESTION, ( Reported) Insulin Aspart 300 Units/3 Ml Solution, 25 UNITS SQ TIDAC, (Reported) Insulin Glargine,Hum.rec.anlog 100 Unit/1 Ml Insuln.pen, 50 UNIT SQ BID, ( Reported) Mirtazapine 15 Mg Tablet, 15 MG PO HS, (Reported) Primidone 50 Mg Tablet, 50 MG PO BID, (Reported) LAST FILLED FROM [facility] 09-18-16 #60 Tamsulosin HCl 0.4 Mg Cap, 0.4 MG PO 1730, (Reported) Trazodone HCl 100 Mg Tablet, 200 MG PO HS, (Reported) Venlafaxine HCl 150 Mg Tab.er.24, 150 MG PO DAILY, (Reported) Physical Exam-Cardiology Physical Exam Vital Signs/I&O Vital Sign - Last 12Hours 02/17/17 02/17/17 02/17/17 02/17/17 02:00 03:00 03:38 03:57 Temp 101.9 102.3 Pulse 72 65 Resp 25 27 B/P (MAP) 176/72 (106) 129/72 (91) Pulse Ox 97 O2 Delivery OxyMask OxyMask O2 Flow Rate 7.00 7.00 02/17/17 02/17/17 02/17/17 02/17/17 04:00 04:00 05:00 06:00 Pulse 93 93 79 Resp 32 32 22 B/P (MAP) 182/65 (104) () 148/57 (87) Pulse Ox 89 94 89 98 O2 Delivery OxyMask OxyMask OxyMask OxyMask O2 Flow Rate 7.00 7.00 7.00 7.00 02/17/17 02/17/17 02/17/17 02/17/17 07:00 07:00 08:00 09:00 Pulse 73 73 81 74 Resp 24 23 24 B/P (MAP) 189/66 (107) 154/67 (96) 177/64 (101) Pulse Ox 92 95 92 O2 Delivery OxyMask OxyMask OxyMask O2 Flow Rate 7.00 9.00 9.00 02/17/17 02/17/17 02/17/17 02/17/17 10:00 10:07 10:26 11:27 Temp 102.1 Pulse 93 98 68 Resp 23 24 26 B/P (MAP) 118/55 (76) Pulse Ox 92 98 95 O2 Delivery OxyMask O2 Flow Rate 9.00 40.00 40.00 Intake and Output 02/17/17 00:00 Intake Total 1050 ml Output Total 1025 ml Balance 25 ml Capillary Refill : Less Than 3 Seconds Constitutional: other (not alert or oriented.) HEENT: No PERRL, No normal ENT inspection, No TMs normal, No pharynx normal, No scleral icterus (R), No scleral icterus (L), No pale conjunctivae (R), No pale conjunctivae (L), No photophobia, No TM abnormal (R), No TM abnormal (L), No pharyngeal erythema, No tonsillar exudate, No other, No discharge, No EOMI, No hearing is well preserved, No hard of hearing, No oral hygience is good, No ulceration, No xanthelasmas are seen Neck: No non-tender, No full range of motion, No supple, No normal inspection, No carotid bruit, No limited range of motion, No lymphadenopathy (R), No lymphadenopathy (L), No tender lateral, No tender midline, No thyromegaly, No other, No carotid pulses are 2 + bilaterally, No with good upstrokes Respiratory: No accessory muscle use, No respiratory distress, No chest tender , No chest expansion is symmetric, No chest is bilaterally symmetric, No lungs clear to percussion, No lungs clear to auscultation, No crackles, No rhonchi, No rales, No stridor, No wheezing, No pleural rub, No other Cardiovascular: No regular rate-rhythm, No irregularly irregular, No extra beats, No parasternal heave is noted, No JVD, No edema, No bradycardia, No tachycardia, No point of maximal impulse, No cardiac thrills are palpable, No S1 and S2, No gallop/S3, No gallop/S4, No diastolic murmur, No systolic murmur, No friction rub, No click, No other Gastrointestinal: No tender, No soft, No round, No distended, No pulsatile mass , No organomegaly, No guarding, No rebound, No tenderness, No hernia, No mass, No audible bowel sounds, No abnormal bowel sounds, No abdominal bruits, No spleenomegaly, No other Rectal: deferred Extremities: No normal range of motion, No non-tender, No normal inspection, No pedal edema, No calf tenderness, No normal capillary refill, No pelvis stable , No calf tenderness, No inflammation, No pedal edema, No slow capillary refill , No swelling, No other, No abrasion, No clubbing, No cyanosis, No ecchymosis, No laceration, No no lower extremity edema bilateral, No significant edema, No tenderness, No wound Neurologic/Psychiatric: No warehouse specialist II-XII nml as tested, No no motor/sensory deficits, No alert, No normal mood/affect, No oriented x 3, No abnormal cerebellar tests, No abnormal warehouse specialist II-XII, No abnormal gait, No aphasia, No EOM palsy, No facial droop, No motor weakness, No sensory deficit, No depressed affect, No disoriented x 3, No other, No grossly intact, No power is 5/5 both on sides Skin: normal color, warm/dry Data Review Labs Laboratory Tests 02/16/17 13:55: Glucometer 260H 02/16/17 15:58: Glucometer 275H 02/16/17 18:05: Glucometer 269H 02/16/17 20:04: Glucometer 260H 02/16/17 22:23: Glucometer 186H 02/17/17 00:12: Glucometer 171H 02/17/17 02:04: Glucometer 146H 02/17/17 03:50: Urine Color YELLOW, Urine Clarity CLEAR, Urine pH 5, Urine Specific [place] 1.020, Urine Protein 2+H, Urine Glucose (UA) NEGATIVE, Urine Ketones NEGATIVE, Urine Nitrite NEGATIVE, Urine Bilirubin NEGATIVE, Urine Urobilinogen NORMAL, Urine Leukocyte Esterase 1+H, Urine RBC (Auto) 4+H, Urine RBC 10-25H, Urine WBC 0-2, Urine Squamous Epithelial Cells 0-2, Urine Crystals NONE, Urine Bacteria NEGATIVE, Urine Casts NONE, Urine Mucus NEGATIVE, Urine Culture Indicated NO, Blood Gas Puncture Site RIGHT RADIAL, Blood Gas Patient Temperature 102.3, Arterial Blood pH 7.34*L, Arterial Blood Partial Pressure CO2 44, Arterial Blood Partial Pressure O2 76L, Arterial Blood HCO3 22L, Arterial Blood Total CO2 23.6, Arterial Blood Oxygen Saturation 95, Arterial Blood Base Excess -2.0, David Test YES-POS, Blood Gas Ventilator Setting NO, Blood Gas Inspired Oxygen 7L 02/17/17 04:01: Glucometer 132H 02/17/17 04:20: White Blood Count 16.8H, Red Blood Count 3.89L, Hemoglobin 12.0L, Hematocrit 36L , Mean Corpuscular Volume 93, Mean Corpuscular Hemoglobin 31, Mean Corpuscular Hemoglobin Concent 33, Red Cell Distribution Width 14.0, Platelet Count 238, Mean Platelet Volume 9.4, Neutrophils (%) (Auto) 77H, Lymphocytes (%) (Auto) 12 , Monocytes (%) (Auto) 10, Eosinophils (%) (Auto) 0, Basophils (%) (Auto) 0, Neutrophils # (Auto) 13.0H, Lymphocytes # (Auto) 2.1, Monocytes # (Auto) 1.7H, Eosinophils # (Auto) 0.0, Basophils # (Auto) 0.0, Neutrophils % (Manual) 81, Lymphocytes % (Manual) 10, Monocytes % (Manual) 6, Band Neutrophils 3, Blood Morphology Comment NORMAL, Sodium Level 142, Potassium Level 4.6, Chloride Level 111H, Carbon Dioxide Level 22, Anion Gap 9, Blood Urea Nitrogen 13, Creatinine 0.78, Estimat Glomerular Filtration Rate > 60, BUN/Creatinine Ratio 17, Glucose Level 148H, Lactic Acid Level 0.96, Calcium Level 8.0L, Phosphorus Level 2.3, Magnesium Level 1.5L, Aspartate Amino Transf (AST/SGOT) 9, Alanine Aminotransferase (ALT/SGPT) 18, B-Type Natriuretic Peptide 1049.7H, Albumin 3.1L 02/17/17 06:04: Glucometer 156H 02/17/17 08:27: Glucometer 243H 02/17/17 09:50: Blood Gas Puncture Site L RAD, Blood Gas Patient Temperature 101.2, Arterial Blood pH 7.37, Arterial Blood Partial Pressure CO2 41, Arterial Blood Partial Pressure O2 77L, Arterial Blood HCO3 23, Arterial Blood Total CO2 24.2, Arterial Blood Oxygen Saturation 96, Arterial Blood Base Excess -1.2, David Test YES-POS, Blood Gas Ventilator Setting NO, Blood Gas Inspired Oxygen 9 02/17/17 10:37: Glucometer 229H 02/17/17 12:29: Glucometer 244H Microbiology 02/16/17 Influenza Types A,B Antigen (YANNA) - Final, Complete ECG Impression ECG Comment sinus rhythm with second-degree AV block Wenckebach type. Prolonged QTc interval. A/P-Cardiology Assessment/Admission Diagnosis psychosis, possible drug abuse. Acute congestive heart failure. Second degree AV block. Prolonged QT interval. Plan Will defer treatment of infection, acute psychosis to the primary team. Acute congestive heart failure. Elevated BNP. Agree with IV Lasix. Echocardiogram. Second degree heart block. Poor historian. Therefore I'm not sure if this is symptomatic or not. He is not on a beta golden or calcium channel golden. We 'll follow clinically. Prolonged QT interval. This is likely secondary to his antipsychotic medications. Will recommend change of psychotropic medications. Thank you for your consultation. Please call me if you have any questions. Nataliya Barone MD, FACP, FACC, FSCAI, FHRS, CCDS Interventional Cardiology Cardiac Electrophysiology Vascular Medicine and Endovascular Interventions Clinical Quality Measures DVT/VTE Risk/Contraindication: Risk Factor Score Per Nursin RFS Level Per Nursing on Admit: 4+=Very High Mumtaz BARONE MD Feb 17, 2017 1:13 pm
[2017-02-17 16:33] LABS: ANION GAP 6 MMOL/L (5-14); BLOOD UREA NITROGEN 11 MG/DL (7-18); BUN/CREATININE RATIO 15; CALCIUM 7.7 MG/DL (8.5-10.1); CARBON DIOXIDE 25 MMOL/L (21-32); CHLORIDE 111 MMOL/L (98-107); CREATININE SERUM 0.74 MG/DL (0.60-1.30); GFR ESTIMATED > 60; GLUCOSE 130 MG/DL (70-105); SODIUM 142 MMOL/L (135-145)
[2017-02-17] MEDS: ZIPRASIDONE 20 MG INJ (GEODON) VIAL IM PRN (18:07)
--- NOTE | 2017-02-17 18:52 | Diagnostic Imaging Report ---
INDICATION: Central line placement. FINDINGS: Right IJ catheter is in the lower SVC. There is no pneumothorax, vascular congestion, and perihilar edema or infiltrates unchanged from earlier. IMPRESSION: Perihilar infiltrates or edema redemonstrated. Central line is in good position with no pneumothorax. Dictated by: Dictated on workstation # [id number]
[2017-02-17] MEDS: VANCOMYCIN 1500 MG/NS 500 ML IVPB IV SCH ×2 (19:47)
[2017-02-18] VITALS (27 sets, daily range): BP systolic 103–187; BP diastolic 50–123
[2017-02-18] MEDS: inSUlin ASPART (NovoLOG) 1 UNIT/0.01 ML (CHARGE PER UNIT) SC SCH ×4 (00:04→18:20)
[2017-02-18] MEDS: AMPICILLIN/SULBACTAM INJECTION 3 GM in NS (IVPB) 100 ML IV SCH ×4 (00:12→18:20)
[2017-02-18] MEDS: LORazepam INJ 2 MG/ML (ATIVAN) VIAL IV PRN ×4 (02:26→22:45)
[2017-02-18] MEDS: ZIPRASIDONE 20 MG INJ (GEODON) VIAL IM PRN ×3 (02:28→15:19)
[2017-02-18] MEDS: morphine INJ 4 MG/ML 1 ML (VIAL/SYRINGE) IVP PRN ×3 (02:45→22:45)
--- NOTE | 2017-02-18 02:51 | OPERATIVE REPORT ---
DATE OF SERVICE: PREOPERATIVE DIAGNOSES: 1. Venous insufficiency. 2. Psychosis. 3. Methamphetamine overdose. POSTOPERATIVE DIAGNOSES: 1. Venous insufficiency. 2. Psychosis. 3. Methamphetamine overdose. PROCEDURE: Insertion of triple lumen catheter, right IJ with ultrasound guidance. SURGEON: Jordan Macias DO. BRANCH ACCOUNT EXECUTIVE: None. ANESTHESIA: Just local lidocaine. BLOOD LOSS: Approximately 10 mL. FLUIDS: None. INDICATION FOR PROCEDURE: The patient is a 76-year-old male, who is having psychosis, admitted with methamphetamine overdose and has venous insufficiency. They were unable to get any lines, needs a central line. FINDINGS: The patient had a central line placed in the right IJ. It was a very difficult placement. PROCEDURE NOTE: After informed consent was obtained from the brother over the phone, the patient was in his bed. He was sterilely prepped and draped in normal fashion. Local lidocaine was used to infiltrate the right side of the neck and then an 18-gauge finder needle was advanced using an ultrasound guidance, got in a couple times, but could not get the wire to thread and finally able to get the needle in, got another good flash of blood and at this time, I able to get this guidewire to go down, removed the needle and then made a stab incision at the wire with a #11 blade and then over the guidewire using the Seldinger technique, placed the dilator and then removed the dilator easily and then over the guidewire, placed the triple lumen catheter using the Seldinger technique. It went in, removed the wire and then easily aspirated in all 3 ports, got a good flash of blood and then flushed very easily, sutured in place with 2-0 silk suture, cleaned the area, placed antibiotic disk and then a Tegaderm dressing. The patient tolerated the procedure and a stat chest x-ray was ordered. Job ID: [id number] DocumentID: [id number] Dictated Date: 02/17/2017 17:57:52 Highway Engineering Teacher Date: 02/18/2017 02:50:25 Dictated By: JORDAN MACIAS DO
[2017-02-18] MEDS: DEXMEDETOMIDINE INJECTION 400 MCG in NS (IVPB) 100 ML IV SCH ×4 (03:03→20:41)
[2017-02-18 05:39] LABS: MEAN CORPUSCULAR HEMOGLOBIN 31 PG (25-34); MEAN CORPUSCULAR HGB CONC 33 G/DL (32-36); MEAN CORPUSCULAR VOLUME 94 FL (80-99); RED BLOOD COUNT 3.58 10^6/uL (4.35-5.85); RED CELL DISTRIBUTION WIDTH 13.9 % (10.0-14.5); WHITE BLOOD COUNT 13.8 10^3/uL (4.3-11.0)
[2017-02-18 05:40] LABS: BASOPHILS % (AUTO) 0 % (0-10); EOSINOPHILS # (AUTO) 0.3 10^3/uL (0.0-0.3); EOSINOPHILS % (AUTO) 2 % (0-10); LYMPHOCYTES # (AUTO) 2.3 X 10^3 (1.0-4.0); LYMPHOCYTES % (AUTO) 17 % (12-44); MEAN PLATELET VOLUME 9.6 FL (7.4-10.4); MONOCYTES # (AUTO) 1.5 X 10^3 (0.0-1.0); MONOCYTES % (AUTO) 11 % (0-12); NEUTROPHILS # (AUTO) 9.7 X 10^3 (1.8-7.8); NEUTROPHILS % (AUTO) 71 % (42-75); PLATELET COUNT 228 10^3/uL (130-400)
[2017-02-18 05:54] LABS: ANION GAP 15 MMOL/L (5-14); BLOOD UREA NITROGEN 13 MG/DL (7-18); BUN/CREATININE RATIO 16; CALCIUM 7.9 MG/DL (8.5-10.1); CARBON DIOXIDE 18 MMOL/L (21-32); CHLORIDE 111 MMOL/L (98-107); CREATININE SERUM 0.83 MG/DL (0.60-1.30); GFR ESTIMATED > 60; GLUCOSE 257 MG/DL (70-105); MAGNESIUM 1.5 MG/DL (1.8-2.4); POTASSIUM 3.9 MMOL/L (3.6-5.0); SODIUM 144 MMOL/L (135-145)
[2017-02-18] MEDS ORDERED: TROUGH ORDER-PHARMACY XX NR (06:00)
[2017-02-18] MEDS: MAGNESIUM 1 GM/100 ML IVPB 100 ML IV SCH ×2 (06:27→06:28)
[2017-02-18] MEDS: VANCOMYCIN 1500 MG/NS 500 ML IVPB IV SCH ×4 (07:00→18:30)
[2017-02-18] MEDS: NS W/KCL 20 MEQ/L 1,000 ML IV SCH (08:15)
--- NOTE | 2017-02-18 09:44 | Progress Note-Hospitalist ---
Subjective HPI/CC On Admission Date Seen by Provider: Feb 18, 2017 Time Seen by Provider: 09:15 CC: Acute psychosis HPI: This is a 76yoWM pt who presented with acute psychosis and methamphetamine usage noted on UDS in ER. I am unsure how he arrived to ER. 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 Pt looks terrible per RN Pt is retracting a lot, ABG done and on BiPAP now Possibly needs intubation if declines further RT is seeing pt BNP checked, Lasix given Pt has not been verbally responding to simulation engineer has not visited RT Review: Pt is not responding to BiPAP Pt has calmed down a bit Dr. Doty was called Patient Interview: Pt was not alert during interview I assessed the records from [facility] admit 11/07/14 and see h/o Rx abuse and Meth use in the 1969's and has required ECT for depression yrs ago. Scribed by Briana Gonzalez under direct supervision of Dr. Janina Oscar. Subjective/Events-last exam patient has been on Precedex overnight. At the time of my exam this morning he is poorly responsive except to noxious stimuli. Vital signs are all stable with an O2 sat of 100 percent on BiPAP. He had been extremely combative hence the necessity for sedation. I suspect he has been on recreational drugs that have been laced with perhaps K2. Urine drug screen was positive for methamphetamines and opioids. Situation was discussed with the nurse this morning and will try and taper off the Precedex to see his underlying mental status and if it is improved Review of Systems Neurological: Confusion Objective Exam Vital Signs Vital Sign - Last 12Hours 02/16/17 02/16/17 02/17/17 10:00 11:30 12:00 Temp 100.0 Pulse 100 Resp 20 B/P (MAP) 176/84 (114) Pulse Ox 94 O2 Delivery Room Air O2 Flow Rate 3.00 FiO2 45 Capillary Refill : Less Than 3 Seconds General Appearance: Other (sedated) Respiratory: Normal Breath Sounds, No Accessory Muscle Use, No Respiratory Distress, Other (on BiPAP) Cardiovascular: Regular Rate, Rhythm, No Gallop, No Murmur Gastrointestinal: Non Tender, Soft Extremity: Pedal Edema Neurologic/Psychiatric: Disoriented x3, Other (sedated on Precedex without the ability to evaluate his neurologic status.) Skin: Pallor, Other (multiple bruises and excoriations) Results/Procedures Lab Laboratory Tests 02/18/17 05:30 Assessment/Plan Assessment and Plan Assess & Plan/Chief Complaint Acute psychosis with fever, elevated lactic acid and Meth in patient w/h/o Rx med abuse in the past and amphetamine use in 1969's. possible K -2 ingestion- because of the severe agitation and combativeness. the patient is sedated on Precedex will try and taper off and further evaluate underlying mental status- on vancomycin and Unasyn, blood cultures negative. will continue for 24 more hours and then discontinue if no etiology for infection is discovered Depression previous suicide ideation 11/07/14 [facility] admit HTN BPH DM-we'll change to every 6 hours fingersticks Chronic UTI CVA hx hypomagnesemia replaced DAY ISAAC MD Feb 18, 2017 09:44
[2017-02-18] MEDS ORDERED: FUROSEMIDE 40 MG/4 ML INJ (LASIX) IVP ONE (11:00)
--- NOTE | 2017-02-18 11:18 | Cardiology Progress Note ---
Cardiology SOAP Progress Note Subjective: still poorly responsive. Objective: I&O/Vital Signs Vital Sign - Last 12Hours 02/18/17 02/18/17 02/18/17 02/18/17 00:00 00:00 00:00 00:00 Temp 97.6 Pulse 79 79 Resp 22 22 B/P (MAP) 126/62 (83) 126/62 (83) Pulse Ox 99 96 96 O2 Delivery NIV Bilevel NIV Bilevel NIV Bilevel O2 Flow Rate 35.00 35.00 FiO2 40 02/18/17 02/18/17 02/18/17 02/18/17 00:01 01:00 01:00 02:00 Pulse 78 78 76 75 Resp 25 17 20 B/P (MAP) 141/72 (95) 161/88 (112) Pulse Ox 97 97 94 O2 Delivery NIV Bilevel NIV Bilevel O2 Flow Rate 40.00 35.00 35.00 02/18/17 02/18/17 02/18/17 02/18/17 02:30 03:00 04:00 04:00 Pulse 121 86 74 Resp 37 27 26 B/P (MAP) 152/75 (100) 125/55 (78) Pulse Ox 97 97 99 O2 Delivery NIV Bilevel NIV Bilevel NIV Bilevel O2 Flow Rate 35.00 35.00 35.00 FiO2 35 02/18/17 02/18/17 02/18/17 02/18/17 04:00 04:03 05:00 06:00 Temp 97.2 Pulse 72 88 86 Resp 25 25 19 B/P (MAP) 103/50 (67) 153/65 (94) Pulse Ox 97 99 92 O2 Delivery NIV Bilevel NIV Bilevel O2 Flow Rate 35.00 35.00 35.00 02/18/17 02/18/17 02/18/17 02/18/17 06:53 07:00 07:00 08:00 Pulse 72 71 71 65 Resp 22 19 19 B/P (MAP) 128/57 (80) 132/59 (83) Pulse Ox 92 92 93 O2 Delivery NIV Bilevel NIV Bilevel O2 Flow Rate 35.00 35.00 35.00 02/18/17 08:15 Pulse Ox 100 O2 Delivery NIV Bilevel FiO2 35 Intake and Output 02/18/17 00:00 Intake Total 0 ml Output Total 1700 ml Balance -1700 ml Weight (Pounds): 202 Weight (Ounces): 8.0 Weight (Calculated Kilograms): 91.725090 Constitutional: other (not alert or oriented.) Respiratory: No accessory muscle use, No respiratory distress, No chest tender , No chest expansion is symmetric, No chest is bilaterally symmetric, No lungs clear to percussion, No lungs clear to auscultation, No crackles, No rhonchi, No rales, No stridor, No wheezing, No pleural rub, No other Cardiovascular: No regular rate-rhythm, No irregularly irregular, No extra beats, No parasternal heave is noted, No JVD, No edema, No bradycardia, No tachycardia, No point of maximal impulse, No cardiac thrills are palpable, No S1 and S2, No gallop/S3, No gallop/S4, No diastolic murmur, No systolic murmur, No friction rub, No click, No other Gastrointestional: No tender, No soft, No round, No distended, No pulsatile mass, No organomegaly, No guarding, No rebound, No tenderness, No hernia, No mass, No audible bowel sounds, No abnormal bowel sounds, No abdominal bruits, No spleenomegaly, No other Extremities: No normal range of motion, No non-tender, No normal inspection, No pedal edema, No calf tenderness, No normal capillary refill, No pelvis stable , No calf tenderness, No inflammation, No pedal edema, No slow capillary refill , No swelling, No other, No abrasion, No clubbing, No cyanosis, No ecchymosis, No laceration, No no lower extremity edema bilateral, No significant edema, No tenderness, No wound Neurologic/Psychiatric: No scrap iron loader II-XII nml as tested, No no motor/sensory deficits, No alert, No normal mood/affect, No oriented x 3, No abnormal cerebellar tests, No abnormal scrap iron loader II-XII, No abnormal gait, No aphasia, No EOM palsy, No facial droop, No motor weakness, No sensory deficit, No depressed affect, No disoriented x 3, No other, No grossly intact, No power is 5/5 both on sides Skin: normal color, warm/dry Results/Procedures: Labs Laboratory Tests 02/17/17 12:29: Glucometer 244H 02/17/17 16:05: Sodium Level 142, Potassium Level 4.0, Chloride Level 111H, Carbon Dioxide Level 25, Anion Gap 6, Blood Urea Nitrogen 11, Creatinine 0.74, Estimat Glomerular Filtration Rate > 60, BUN/Creatinine Ratio 15, Glucose Level 130H, Calcium Level 7.7L 02/17/17 16:09: Glucometer 123H 02/17/17 18:31: Glucometer 151H 02/17/17 23:57: Glucometer 144H 02/18/17 05:30: White Blood Count 13.8H, Red Blood Count 3.58L, Hemoglobin 11.0L, Hematocrit 34L , Mean Corpuscular Volume 94, Mean Corpuscular Hemoglobin 31, Mean Corpuscular Hemoglobin Concent 33, Red Cell Distribution Width 13.9, Platelet Count 228, Mean Platelet Volume 9.6, Neutrophils (%) (Auto) 71, Lymphocytes (%) (Auto) 17, Monocytes (%) (Auto) 11, Eosinophils (%) (Auto) 2, Basophils (%) (Auto) 0, Neutrophils # (Auto) 9.7H, Lymphocytes # (Auto) 2.3, Monocytes # (Auto) 1.5H, Eosinophils # (Auto) 0.3, Basophils # (Auto) 0.0, Sodium Level 144, Potassium Level 3.9, Chloride Level 111H, Carbon Dioxide Level 18L, Anion Gap 15H, Blood Urea Nitrogen 13, Creatinine 0.83, Estimat Glomerular Filtration Rate > 60, BUN/ Creatinine Ratio 16, Glucose Level 257H, Calcium Level 7.9L, Magnesium Level 1.5L, Vancomycin Level Trough 17.0 Microbiology 02/16/17 Blood Culture - Preliminary, Resulted No growth 02/16/17 MRSA Screen - Final, Complete MRSA not isolated A/P: Assessment/Dx: psychosis, possible drug abuse. Acute systolic congestive heart failure. Second degree AV block, Mobitz type I. Prolonged QT interval. Plan: Will defer treatment of infection, acute psychosis to the primary team. Acute congestive heart failure. Elevated BNP. continue with IV Lasix. Echocardiogram preliminary systolic dysfunction. Second degree heart block. Poor historian. Therefore I'm not sure if this is symptomatic or not. He is not on a beta golden or calcium channel golden. We 'll follow clinically. Prolonged QT interval. This is likely secondary to his antipsychotic medications. Will recommend change of psychotropic medications. Thank you for your consultation. Please call me if you have any questions. Nataliya Barone MD, FACP, FACC, FSCAI, FHRS, CCDS Interventional Cardiology Cardiac Electrophysiology Vascular Medicine and Endovascular Interventions Mumtaz BARONE MD Feb 18, 2017 11:18 am
[2017-02-18] MEDS: lisINopril 5 MG (PRINIVIL) TABLET PO SCH (12:51)
[2017-02-18] MEDS ORDERED: WATER (STERILE) FOR INJECTION 10 ML ONE (15:09)
[2017-02-18] MEDS ORDERED: WATER (STERILE) FOR INJ 10 ML BTL INJ PRN (15:30)
[2017-02-18] MEDS: ACETAMINOPHEN 650 MG SUPP (TYLENOL) PR PRN (16:26)
[2017-02-19] VITALS (26 sets, daily range): BP systolic 103–224; BP diastolic 57–99
[2017-02-19] MEDS: AMPICILLIN/SULBACTAM INJECTION 3 GM in NS (IVPB) 100 ML IV SCH ×4 (00:32→18:00)
[2017-02-19] MEDS: inSUlin ASPART (NovoLOG) 1 UNIT/0.01 ML (CHARGE PER UNIT) SC SCH ×4 (00:35→18:12)
[2017-02-19] MEDS: DEXMEDETOMIDINE INJECTION 400 MCG in NS (IVPB) 100 ML IV SCH ×2 (02:44→14:23)
[2017-02-19] MEDS: LORazepam INJ 2 MG/ML (ATIVAN) VIAL IV PRN ×2 (04:59→12:30)
[2017-02-19] MEDS: morphine INJ 4 MG/ML 1 ML (VIAL/SYRINGE) IVP PRN ×4 (04:59→18:12)
[2017-02-19 05:19] LABS: BASOPHILS % (AUTO) 0 % (0-10); EOSINOPHILS # (AUTO) 0.6 10^3/uL (0.0-0.3); EOSINOPHILS % (AUTO) 5 % (0-10); LYMPHOCYTES # (AUTO) 2.3 X 10^3 (1.0-4.0); LYMPHOCYTES % (AUTO) 19 % (12-44); MEAN CORPUSCULAR HEMOGLOBIN 31 PG (25-34); MEAN CORPUSCULAR HGB CONC 33 G/DL (32-36); MEAN CORPUSCULAR VOLUME 93 FL (80-99); MEAN PLATELET VOLUME 9.7 FL (7.4-10.4); MONOCYTES # (AUTO) 1.1 X 10^3 (0.0-1.0); MONOCYTES % (AUTO) 9 % (0-12); NEUTROPHILS # (AUTO) 8.1 X 10^3 (1.8-7.8); NEUTROPHILS % (AUTO) 67 % (42-75); PLATELET COUNT 240 10^3/uL (130-400); RED BLOOD COUNT 3.25 10^6/uL (4.35-5.85); RED CELL DISTRIBUTION WIDTH 13.3 % (10.0-14.5); WHITE BLOOD COUNT 12.1 10^3/uL (4.3-11.0)
[2017-02-19 05:45] LABS: ANION GAP 13 MMOL/L (5-14); BLOOD UREA NITROGEN 15 MG/DL (7-18); BUN/CREATININE RATIO 19; CALCIUM 8.3 MG/DL (8.5-10.1); CARBON DIOXIDE 22 MMOL/L (21-32); CHLORIDE 112 MMOL/L (98-107); CREATININE SERUM 0.79 MG/DL (0.60-1.30); GFR ESTIMATED > 60; GLUCOSE 178 MG/DL (70-105); MAGNESIUM 1.6 MG/DL (1.8-2.4); POTASSIUM 3.5 MMOL/L (3.6-5.0); SODIUM 147 MMOL/L (135-145)
[2017-02-19] MEDS: MAGNESIUM 1 GM/100 ML IVPB 100 ML IV SCH ×3 (06:09→07:23)
[2017-02-19] MEDS: POTASSIUM CL 10MEQ/50ML IVPB 50 ML IV SCH ×3 (06:09→07:23)
[2017-02-19] MEDS: KCL 20 MEQ TAB (K-DUR) PO SCH (06:09)
--- NOTE | 2017-02-19 06:24 | Diagnostic Imaging Report ---
INDICATION: Hypoxia Supine portable chest shows the heart size and vascularity to be upper normal. The lungs are clear. There is no effusion or pneumothorax. IMPRESSION: No acute abnormality is seen with improved aeration of the lung since 02/17/2017. Dictated by: Dictated on workstation # [id number]
[2017-02-19] MEDS: VANCOMYCIN 1500 MG/NS 500 ML IVPB IV SCH ×4 (06:59→18:24)
[2017-02-19] MEDS: NS W/KCL 20 MEQ/L 1,000 ML IV SCH (07:10)
[2017-02-19] MEDS: lisINopril 5 MG (PRINIVIL) TABLET PO SCH (07:23)
--- NOTE | 2017-02-19 09:25 | Progress Note-Hospitalist ---
Subjective HPI/CC On Admission Date Seen by Provider: Feb 19, 2017 Time Seen by Provider: 09:00 CC: Acute psychosis HPI: This is a 76yoWM pt who presented with acute psychosis and methamphetamine usage noted on UDS in ER. 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 Pt looks terrible per RN Pt is retracting a lot, ABG done and on BiPAP now Possibly needs intubation if declines further RT is seeing pt BNP checked, Lasix given Pt has not been verbally responding to cold mill operator has not visited RT Review: Pt is not responding to BiPAP Pt has calmed down a bit Dr. Doty was called Patient Interview: Pt was not alert during interview I assessed the records from [facility] admit 11/07/14 and see h/o Rx abuse and Meth use in the and has required ECT for depression yrs ago. Scribed by Briana Gonzalez under direct supervision of Dr. Janina Oscar. Subjective/Events-last exam patient is much more lucid today. He is able to answer questions and is oriented to the month and to the president did not know he was via [employer]. Denies having any illicit drug use. Complains of being very thirsty. And he is very shaky. Objective Exam Vital Signs Vital Sign - Last 12Hours 02/16/17 02/16/17 02/17/17 10:00 11:30 12:00 Temp 100.0 Pulse 100 Resp 20 B/P (MAP) 176/84 (114) Pulse Ox 94 O2 Delivery Room Air O2 Flow Rate 3.00 FiO2 45 Capillary Refill : Less Than 3 Seconds General Appearance: Moderate Distress, Obese HEENT: Other (facial edema) Neck: Supple Respiratory: Accessory Muscle Use, Decreased Breath Sounds Cardiovascular: Tachycardia Gastrointestinal: Non Tender, Soft Extremity: Pedal Edema Neurologic/Psychiatric: Alert, Other (anxious and tremulous) Skin: Pallor Results/Procedures Lab Laboratory Tests 02/19/17 05:15 Assessment/Plan Assessment and Plan Assess & Plan/Chief Complaint Acute psychosis with fever, elevated lactic acid and Meth in patient w/h/o Rx med abuse in the past and amphetamine use in . possible K -2 ingestion- because of the severe agitation and combativeness. the patient is sedated on Precedex will try and taper off again today-on vancomycin and Unasyn, blood cultures negative. will continue for now although no etiology for infection has been discovered. his white count is still elevated and his temperature has been 99 in the last 24 hours so we'll continue IV antibiotics Depression previous suicide ideation 11/07/14 [facility] admit-we'll restart his Effexor and trazodone HTN BPH-currently has an indwelling Panda DM-we'll change to every 6 hours fingersticks, we will restart his Lantus or Levemir and continue sliding scale insulin as we advance his diet Chronic UTI CVA hx hypomagnesemia replaced possible Parkinson's on Sinemet and primidone we will restart these watching for increased psychosis Prolonged QT interval-will need to DC the Geodon, replace magnesium as needed, continue to monitor as we restart trazodone hypernatremia-patient is beginning to ingest water and hopefully this will improve DAY ISAAC MD Feb 19, 2017 09:25
[2017-02-19] MEDS: ASPIRIN E.C. 81 MG (ECOTRIN) TAB PO SCH (10:11)
[2017-02-19] MEDS ORDERED: lisINopril 20 MG (ZESTRIL) TAB PO NR (10:30)
[2017-02-19] MEDS ORDERED: NITROGLYCERIN 0.4 MG SL TABS BTL 25'S SL NR (10:30)
[2017-02-19] MEDS ORDERED: NITROGLYCERIN 0.4 MG SL TABS BTL 25'S SL ONE (10:39)
[2017-02-19] MEDS: VENlafaxine XR 75 MG (EFFEXOR XR) CAP PO SCH (10:43)
[2017-02-19] MEDS: amLODIPine 5 MG (NORVASC) TAB PO SCH (11:16)
[2017-02-19] MEDS ORDERED: FUROSEMIDE 40 MG/4 ML INJ (LASIX) IVP ONE (11:30)
[2017-02-19] MEDS: SINEMET CR 50/200 (CARBIDOPA/LEVODOPA SA) TAB PO SCH ×2 (11:36→20:50)
[2017-02-19] MEDS: ACETAMINOPHEN 325 MG TABLET/CAPLET (TYLENOL) PO PRN ×2 (11:52→18:13)
--- NOTE | 2017-02-19 11:56 | Cardiology Progress Note ---
Cardiology SOAP Progress Note Subjective: awake today. no significant cardiac complaints Objective: I&O/Vital Signs Vital Sign - Last 12Hours 02/19/17 02/19/17 02/19/17 02/19/17 00:00 00:00 00:00 00:22 Temp 97.6 Pulse 48 50 Resp 24 24 B/P (MAP) 136/68 (90) Pulse Ox 93 94 95 O2 Delivery NIV Bilevel NIV Bilevel O2 Flow Rate 28.00 28.00 FiO2 28 02/19/17 02/19/17 02/19/17 02/19/17 01:00 01:00 02:00 03:00 Pulse 44 44 42 50 Resp 28 22 21 B/P (MAP) 136/64 (88) 121/69 (86) 163/67 (99) Pulse Ox 95 96 97 O2 Delivery NIV Bilevel NIV Bilevel NIV Bilevel O2 Flow Rate 28.00 28.00 28.00 02/19/17 02/19/17 02/19/17 02/19/17 04:00 04:00 04:18 05:00 Temp 97.8 Pulse 45 43 60 Resp 20 22 23 B/P (MAP) 149/65 (93) 164/68 (100) Pulse Ox 96 96 97 97 O2 Delivery NIV Bilevel NIV Bilevel Nasal Cannula O2 Flow Rate 28.00 28.00 3.00 FiO2 28 02/19/17 02/19/17 02/19/17 02/19/17 06:00 06:34 07:00 07:00 Pulse 74 95 112 Resp 24 16 B/P (MAP) 150/59 (89) 166/75 (105) Pulse Ox 97 94 94 O2 Delivery Nasal Cannula High Flow N/C Nasal Cannula O2 Flow Rate 3.00 4.00 3.00 02/19/17 02/19/17 02/19/17 02/19/17 08:09 08:22 09:00 10:00 Temp 99.7 Pulse 86 125 105 Resp 26 30 25 B/P (MAP) 156/76 (102) 224/99 (140) 202/97 (132) Pulse Ox 94 96 95 94 O2 Delivery High Flow N/C Nasal Cannula High Flow N/C High Flow N/C O2 Flow Rate 3.00 2.00 3.00 3.00 02/19/17 02/19/17 11:51 11:52 Temp 103.1 103.1 B/P (MAP) O2 Delivery Nasal Cannula O2 Flow Rate 4.00 Intake and Output 02/19/17 00:00 Intake Total 0 ml Output Total 2850 ml Balance -2850 ml Weight (Pounds): 204 Weight (Ounces): 1.0 Weight (Calculated Kilograms): 92.861423 Constitutional: other (not alert or oriented.) Respiratory: No accessory muscle use, No respiratory distress, No chest tender , No chest expansion is symmetric, No chest is bilaterally symmetric, No lungs clear to percussion, No lungs clear to auscultation, No crackles, No rhonchi, No rales, No stridor, No wheezing, No pleural rub, No other Cardiovascular: No regular rate-rhythm, No irregularly irregular, No extra beats, No parasternal heave is noted, No JVD, No edema, No bradycardia, No tachycardia, No point of maximal impulse, No cardiac thrills are palpable, No S1 and S2, No gallop/S3, No gallop/S4, No diastolic murmur, No systolic murmur, No friction rub, No click, No other Gastrointestional: No tender, No soft, No round, No distended, No pulsatile mass, No organomegaly, No guarding, No rebound, No tenderness, No hernia, No mass, No audible bowel sounds, No abnormal bowel sounds, No abdominal bruits, No spleenomegaly, No other Extremities: No normal range of motion, No non-tender, No normal inspection, No pedal edema, No calf tenderness, No normal capillary refill, No pelvis stable , No calf tenderness, No inflammation, No pedal edema, No slow capillary refill , No swelling, No other, No abrasion, No clubbing, No cyanosis, No ecchymosis, No laceration, No no lower extremity edema bilateral, No significant edema, No tenderness, No wound Neurologic/Psychiatric: No galvanometer assembler II-XII nml as tested, No no motor/sensory deficits, No alert, No normal mood/affect, No oriented x 3, No abnormal cerebellar tests, No abnormal galvanometer assembler II-XII, No abnormal gait, No aphasia, No EOM palsy, No facial droop, No motor weakness, No sensory deficit, No depressed affect, No disoriented x 3, No other, No grossly intact, No power is 5/5 both on sides Skin: normal color, warm/dry Results/Procedures: Labs Laboratory Tests 02/18/17 17:55: Glucometer 293H 02/19/17 00:33: Glucometer 214H 02/19/17 05:15: White Blood Count 12.1H, Red Blood Count 3.25L, Hemoglobin 10.1L, Hematocrit 30L , Mean Corpuscular Volume 93, Mean Corpuscular Hemoglobin 31, Mean Corpuscular Hemoglobin Concent 33, Red Cell Distribution Width 13.3, Platelet Count 240, Mean Platelet Volume 9.7, Neutrophils (%) (Auto) 67, Lymphocytes (%) (Auto) 19, Monocytes (%) (Auto) 9, Eosinophils (%) (Auto) 5, Basophils (%) (Auto) 0, Neutrophils # (Auto) 8.1H, Lymphocytes # (Auto) 2.3, Monocytes # (Auto) 1.1H, Eosinophils # (Auto) 0.6H, Basophils # (Auto) 0.0, Sodium Level 147H, Potassium Level 3.5L, Chloride Level 112H, Carbon Dioxide Level 22, Anion Gap 13, Blood Urea Nitrogen 15, Creatinine 0.79, Estimat Glomerular Filtration Rate > 60, BUN/ Creatinine Ratio 19, Glucose Level 178H, Calcium Level 8.3L, Magnesium Level 1.6L Microbiology 02/16/17 Blood Culture - Preliminary, Resulted No growth 02/16/17 MRSA Screen - Final, Complete MRSA not isolated A/P: Assessment/Dx: psychosis, possible drug abuse. Acute systolic congestive heart failure. Second degree AV block, Mobitz type I. Prolonged QT interval. severe hypertension. Plan: Will defer treatment of infection, acute psychosis to the primary team. Acute congestive heart failure. Elevated BNP. continue with IV Lasix. Echocardiogram preliminary systolic dysfunction. Second degree heart block. continues to have occasional paroxysmal second- degree heart block. Will avoid beta golden and calcium channel golden.. Prolonged QT interval. This is likely secondary to his antipsychotic medications. Will recommend change of psychotropic medications. severe hypertension: Systolic blood pressure over 200 mmHg. We will give lisinopril 40 mg as well as amlodipine 5 mg. Continue to follow. Thank you for your consultation. Please call me if you have any questions. Nataliya Barone MD, FACP, FACC, FSCAI, FHRS, CCDS Interventional Cardiology Cardiac Electrophysiology Vascular Medicine and Endovascular Interventions Mumtaz BARONE MD Feb 19, 2017 11:56 am
[2017-02-19] MEDS ORDERED: NS 1000 ML IV BAG IV ONE (13:00)
[2017-02-19] MEDS ORDERED: NS IV 1000 ML 1,000 ML IV SCH (13:00)
[2017-02-19] MEDS: inSUlin DETERMIR 1 UNIT/0.01 ML (LEVEMIR) CHARGE PER UNIT SQ SCH (20:50)
[2017-02-19] MEDS: ATORVASTATIN 80 MG (LIPITOR) TABLET PO SCH (20:50)
[2017-02-19] MEDS: PRIMIDONE 50 MG TAB (MYSOLINE) PO SCH (20:50)
[2017-02-19] MEDS ORDERED: NON-FORMULARY MEDICATION 1 EA EA (Insulin Glargine,Hum.rec.anlog (Lantus Solostar) 50 UNIT SQ SCH (21:00)
[2017-02-20] VITALS (25 sets, daily range): BP systolic 116–183; BP diastolic 57–99
[2017-02-20] MEDS: AMPICILLIN/SULBACTAM INJECTION 3 GM in NS (IVPB) 100 ML IV SCH ×4 (00:34→18:13)
[2017-02-20] MEDS: inSUlin ASPART (NovoLOG) 1 UNIT/0.01 ML (CHARGE PER UNIT) SC SCH ×4 (00:34→16:53)
[2017-02-20] MEDS: DEXMEDETOMIDINE INJECTION 400 MCG in NS (IVPB) 100 ML IV SCH (00:35)
[2017-02-20 04:42] LABS: BASOPHILS % (AUTO) 0 % (0-10); EOSINOPHILS # (AUTO) 0.8 10^3/uL (0.0-0.3); EOSINOPHILS % (AUTO) 10 % (0-10); LYMPHOCYTES # (AUTO) 1.6 X 10^3 (1.0-4.0); LYMPHOCYTES % (AUTO) 19 % (12-44); MEAN CORPUSCULAR HEMOGLOBIN 30 PG (25-34); MEAN CORPUSCULAR HGB CONC 33 G/DL (32-36); MEAN CORPUSCULAR VOLUME 92 FL (80-99); MEAN PLATELET VOLUME 9.6 FL (7.4-10.4); MONOCYTES # (AUTO) 0.9 X 10^3 (0.0-1.0); MONOCYTES % (AUTO) 11 % (0-12); NEUTROPHILS % (AUTO) 60 % (42-75); PLATELET COUNT 265 10^3/uL (130-400); RED BLOOD COUNT 2.87 10^6/uL (4.35-5.85); RED CELL DISTRIBUTION WIDTH 13.1 % (10.0-14.5); WHITE BLOOD COUNT 8.3 10^3/uL (4.3-11.0)
[2017-02-20 04:57] LABS: ANION GAP 8 MMOL/L (5-14); BLOOD UREA NITROGEN 11 MG/DL (7-18); BUN/CREATININE RATIO 16; CALCIUM 7.3 MG/DL (8.5-10.1); CARBON DIOXIDE 25 MMOL/L (21-32); CHLORIDE 110 MMOL/L (98-107); CREATININE SERUM 0.67 MG/DL (0.60-1.30); GFR ESTIMATED > 60; GLUCOSE 158 MG/DL (70-105); MAGNESIUM 1.5 MG/DL (1.8-2.4); POTASSIUM 3.1 MMOL/L (3.6-5.0); SODIUM 143 MMOL/L (135-145)
[2017-02-20] MEDS: MAGNESIUM 1 GM/100 ML IVPB 100 ML IV SCH ×3 (05:12→06:16)
[2017-02-20] MEDS: POTASSIUM CL 10MEQ/50ML IVPB 50 ML IV SCH ×5 (05:12→07:36)
[2017-02-20] MEDS: KCL 20 MEQ TAB (K-DUR) PO SCH (05:14)
[2017-02-20] MEDS ORDERED: ALPRAZolam 1 MG (XANAX) TAB PO PRN (06:30)
--- NOTE | 2017-02-20 06:31 | Pulmonary Progress Note ---
Subjective Time Seen by Provider: 06:50 Subjective/Events-last exam No complications noted. Pt is doing better. Exam Exam Vital Signs Date Time Temp Pulse Resp B/P (MAP) Pulse Ox O2 Delivery O2 Flow Rate FiO2 02/20/17 06:14 Room Air 02/20/17 06:00 54 20 116/60 (78) 95 Nasal Cannula 1.00 02/20/17 05:00 55 18 121/58 (79) 94 Nasal Cannula 1.00 02/20/17 04:07 98.0 Nasal Cannula 1.00 02/20/17 04:00 94 Nasal Cannula 1.00 02/20/17 04:00 58 28 117/57 (77) 95 Nasal Cannula 1.00 02/20/17 03:00 57 17 125/60 (81) 95 Nasal Cannula 2.00 02/20/17 02:00 57 14 126/57 (80) 96 Nasal Cannula 2.00 02/20/17 01:00 60 02/20/17 01:00 60 16 143/75 (97) 96 Nasal Cannula 2.00 02/20/17 00:00 59 16 133/61 (85) 98 Nasal Cannula 2.00 02/20/17 00:00 97 Nasal Cannula 2.00 02/20/17 00:00 97.5 96 Nasal Cannula 2.00 02/19/17 23:00 57 16 127/58 (81) 98 Nasal Cannula 4.00 02/19/17 22:00 60 17 122/57 (78) 97 Nasal Cannula 4.00 02/19/17 21:54 96 Nasal Cannula 3.00 02/19/17 21:00 80 23 144/60 (88) 97 Nasal Cannula 4.00 02/19/17 20:00 86 17 103/90 (94) 98 Nasal Cannula 4.00 02/19/17 20:00 99 Nasal Cannula 4.00 02/19/17 19:42 98.6 86 22 139/68 (91) 99 Nasal Cannula 4.00 02/19/17 19:00 87 02/19/17 19:00 87 19 168/77 (107) 97 Nasal Cannula 4.00 02/19/17 18:00 81 19 168/87 (114) 99 Nasal Cannula 3.00 02/19/17 17:11 97.0 69 17 137/86 (103) 99 Nasal Cannula 3.00 02/19/17 16:43 96 Nasal Cannula 4.00 02/19/17 16:00 75 21 126/63 (84) 98 Nasal Cannula 3.00 02/19/17 15:00 84 22 124/65 (84) 95 Nasal Cannula 3.00 02/19/17 14:00 95 26 124/57 (79) 92 Nasal Cannula 3.00 02/19/17 13:50 100.1 115 24 138/79 (98) 94 Nasal Cannula 3.00 02/19/17 13:00 93 02/19/17 12:30 101.0 02/19/17 12:00 116 25 152/76 (101) 93 Nasal Cannula 4.00 02/19/17 12:00 96 Nasal Cannula 4.00 02/19/17 11:52 103.1 02/19/17 11:51 103.1 Nasal Cannula 4.00 02/19/17 11:00 107 33 178/83 (114) 92 High Flow N/C 3.00 02/19/17 10:00 105 25 202/97 (132) 94 High Flow N/C 3.00 02/19/17 09:00 125 30 224/99 (140) 95 High Flow N/C 3.00 02/19/17 08:22 96 Nasal Cannula 2.00 02/19/17 08:09 99.7 86 26 156/76 (102) 94 High Flow N/C 3.00 02/19/17 07:00 112 02/19/17 07:00 95 16 166/75 (105) 94 Nasal Cannula 3.00 02/19/17 06:34 94 High Flow N/C 4.00 I & O 02/20/17 07:00 Intake Total 3689 ml Output Total 3050 ml Balance 639 ml General Appearance: No Apparent Distress, Obese HEENT: Other (facial edema) Neck: Supple Respiratory: Accessory Muscle Use, Decreased Breath Sounds Cardiovascular: Tachycardia Capillary Refill: Less Than 3 Seconds Gastrointestinal: soft, other Extremity: Pedal Edema Neurologic/Psychiatric: Alert, Other (anxious and tremulous) Skin: Pallor Results Lab Laboratory Tests 02/19/17 05:15 02/20/17 04:30 Assessment/Plan Assessment/Plan Acute psychosis, agitation, and hallucinations -Ativan, and Precedex gtt-- D/C -Start Risperdal, and PO Xanax Polysubstance abuse -UDS is positive for Methamphetamine, Methadone, Opiates Sepsis with probable pneumonia possible aspiration pneumonia -Unasyn D/C vancomycin -zavala cultures Respiratory distress with hypoxia -Oxygen -monitor -PT is at risk of needing intubation especially considering sedation that is currently needed to control his psychosis Hypomagnesium, Hypokalemia -Replace Fall from same level Obesity with poorly controlled DM -Monitor 233 Clinical Quality Measures DVT/VTE Risk/Contraindication: Risk Factor Score Per Nursin RFS Level Per Nursing on Admit: 4+=Very High MAURICIO BENSON DO Feb 20, 2017 06:31
[2017-02-20] MEDS: NS W/KCL 20 MEQ/L 1,000 ML IV SCH (06:40)
[2017-02-20] MEDS: VANCOMYCIN 1500 MG/NS 500 ML IVPB IV SCH ×2 (06:40)
[2017-02-20] MEDS ORDERED: VENlafaxine XR 75 MG (EFFEXOR XR) CAP PO SCH (07:00)
[2017-02-20] MEDS ORDERED: KCL 20 MEQ TAB (K-DUR) PO NR (08:00)
[2017-02-20] MEDS ORDERED: LISI40TA PO (08:08)
[2017-02-20] MEDS: ASPIRIN E.C. 81 MG (ECOTRIN) TAB PO SCH (08:46)
[2017-02-20] MEDS: lisINopril 20 MG (ZESTRIL) TAB PO SCH (08:46)
[2017-02-20] MEDS: SINEMET CR 50/200 (CARBIDOPA/LEVODOPA SA) TAB PO SCH ×3 (08:47→20:22)
[2017-02-20] MEDS: PRIMIDONE 50 MG TAB (MYSOLINE) PO SCH ×2 (08:47→20:21)
[2017-02-20] MEDS: risperiDONE 1 MG (RisperDAL) TAB PO SCH ×2 (08:47→20:21)
[2017-02-20] MEDS: inSUlin DETERMIR 1 UNIT/0.01 ML (LEVEMIR) CHARGE PER UNIT SQ SCH ×2 (08:47→20:29)
[2017-02-20] MEDS: amLODIPine 5 MG (NORVASC) TAB PO SCH (08:47)
[2017-02-20] MEDS: VENlafaxine XR 75 MG (EFFEXOR XR) CAP PO SCH (08:47)
[2017-02-20] MEDS ORDERED: NON-FORMULARY MEDICATION 1 EA EA (Venlafaxine HCl (Venlafaxine HCl ER) 150 MG) PO SCH (09:00)
--- NOTE | 2017-02-20 09:14 | Progress Note-Hospitalist ---
Subjective HPI/CC On Admission Date Seen by Provider: Feb 20, 2017 Time Seen by Provider: 08:45 CC: Acute psychosis HPI: This is a 76yoWM pt who presented with acute psychosis and methamphetamine usage noted on UDS in ER. I am unsure how he arrived to ER. Subjective/Events-last exam Pt reports feeling better. He still is unsure of why he is here but believes he has pneumonia. He denies any complaints today. Per RN Precedex turned off at 600AM. Has done well with it off. Objective Exam Vital Signs Vital Sign - Last 12Hours 02/16/17 02/16/17 02/17/17 10:00 11:30 12:00 Temp 100.0 Pulse 100 Resp 20 B/P (MAP) 176/84 (114) Pulse Ox 94 O2 Delivery Room Air O2 Flow Rate 3.00 FiO2 45 Capillary Refill : Less Than 3 Seconds General Appearance: No Apparent Distress, WD/WN Respiratory: Lungs Clear, No Respiratory Distress Cardiovascular: Regular Rate, Rhythm, No Murmur Gastrointestinal: Normal Bowel Sounds, Non Tender, Soft Extremity: Non Tender, No Calf Tenderness Neurologic/Psychiatric: Alert, Oriented x3 Results/Procedures Lab Laboratory Tests 02/20/17 04:30 Assessment/Plan Assessment and Plan Assess & Plan/Chief Complaint Psychosis Diagnosis/Problems Diagnosis/Problems (1) Acute psychosis Status: Acute Assessment & Plan: Like due to drug intoxication Now off precedex, continue to monitor in ICU until tomorrow if does well (2) Polysubstance abuse Status: Acute Assessment & Plan: Meth on UDS on arrival Concern for K2 ingestion per initial presentation He denies any illicit drug use (3) Parkinson disease Assessment & Plan: Continue Sinemet, Risperdal (4) Essential (primary) hypertension Assessment & Plan: Elevated this AM but improving Trend (5) Insulin dependent diabetes mellitus Assessment & Plan: Continue Levemir Blood sugars elevated yesterday Improved fasting this AM Continue SSI B (6) Prolonged QT interval Assessment & Plan: Continue to monitor on Telemetry Caution with antipsychotics needed (7) Normocytic anemia Assessment & Plan: Dropped today, trend No signs of bleeding (8) Hypokalemia Assessment & Plan: On replacement protocol (9) Hypomagnesemia Assessment & Plan: On replacement protocol SUSHIL NEGRO MD Feb 20, 2017 09:14
--- NOTE | 2017-02-20 10:14 | Cardiology Progress Note ---
Cardiology SOAP Progress Note Subjective: No cardiac complaints. Objective: I&O/Vital Signs Vital Sign - Last 12Hours 02/20/17 02/20/17 02/20/17 02/20/17 02:00 03:00 04:00 04:00 Pulse 57 57 58 Resp 14 17 28 B/P (MAP) 126/57 (80) 125/60 (81) 117/57 (77) Pulse Ox 96 95 95 94 O2 Delivery Nasal Cannula Nasal Cannula Nasal Cannula Nasal Cannula O2 Flow Rate 2.00 2.00 1.00 1.00 02/20/17 02/20/17 02/20/17 02/20/17 04:07 05:00 06:00 06:14 Temp 98.0 Pulse 55 54 Resp 18 20 B/P (MAP) 121/58 (79) 116/60 (78) Pulse Ox 94 95 O2 Delivery Nasal Cannula Nasal Cannula Nasal Cannula Room Air O2 Flow Rate 1.00 1.00 1.00 02/20/17 02/20/17 02/20/17 02/20/17 07:00 07:00 08:00 08:30 Temp 97.4 Pulse 55 56 60 Resp 22 18 B/P (MAP) 118/60 (79) 135/60 (85) Pulse Ox 92 91 94 O2 Delivery Room Air Room Air Nasal Cannula O2 Flow Rate 1.00 02/20/17 02/20/17 02/20/17 02/20/17 08:30 09:00 10:00 10:45 Pulse 96 80 Resp 26 14 B/P (MAP) 181/83 (115) 183/93 (123) 147/76 (99) Pulse Ox 97 95 O2 Delivery Nasal Cannula Nasal Cannula Room Air O2 Flow Rate 2.00 2.00 Intake and Output 02/20/17 00:00 Intake Total 804 ml Output Total 2050 ml Balance -1246 ml Weight (Pounds): 214 Weight (Ounces): 3.0 Weight (Calculated Kilograms): 97.341339 Constitutional: other (not alert or oriented.) Respiratory: No accessory muscle use, No respiratory distress, No chest tender , No chest expansion is symmetric, No chest is bilaterally symmetric, No lungs clear to percussion, No lungs clear to auscultation, No crackles, No rhonchi, No rales, No stridor, No wheezing, No pleural rub, No other Cardiovascular: No regular rate-rhythm, No irregularly irregular, No extra beats, No parasternal heave is noted, No JVD, No edema, No bradycardia, No tachycardia, No point of maximal impulse, No cardiac thrills are palpable, No S1 and S2, No gallop/S3, No gallop/S4, No diastolic murmur, No systolic murmur, No friction rub, No click, No other Gastrointestional: No tender, No soft, No round, No distended, No pulsatile mass, No organomegaly, No guarding, No rebound, No tenderness, No hernia, No mass, No audible bowel sounds, No abnormal bowel sounds, No abdominal bruits, No spleenomegaly, No other Extremities: No normal range of motion, No non-tender, No normal inspection, No pedal edema, No calf tenderness, No normal capillary refill, No pelvis stable , No calf tenderness, No inflammation, No pedal edema, No slow capillary refill , No swelling, No other, No abrasion, No clubbing, No cyanosis, No ecchymosis, No laceration, No no lower extremity edema bilateral, No significant edema, No tenderness, No wound Neurologic/Psychiatric: No truck bench mechanic II-XII nml as tested, No no motor/sensory deficits, No alert, No normal mood/affect, No oriented x 3, No abnormal cerebellar tests, No abnormal truck bench mechanic II-XII, No abnormal gait, No aphasia, No EOM palsy, No facial droop, No motor weakness, No sensory deficit, No depressed affect, No disoriented x 3, No other, No grossly intact, No power is 5/5 both on sides Skin: normal color, warm/dry Results/Procedures: Labs Laboratory Tests 02/19/17 18:00: Glucometer 178H 02/19/17 20:26: Glucometer 333H 02/20/17 00:25: Glucometer 273H 02/20/17 04:30: White Blood Count 8.3, Red Blood Count 2.87L, Hemoglobin 8.7L, Hematocrit 27L, Mean Corpuscular Volume 92, Mean Corpuscular Hemoglobin 30, Mean Corpuscular Hemoglobin Concent 33, Red Cell Distribution Width 13.1, Platelet Count 265, Mean Platelet Volume 9.6, Neutrophils (%) (Auto) 60, Lymphocytes (%) (Auto) 19, Monocytes (%) (Auto) 11, Eosinophils (%) (Auto) 10, Basophils (%) (Auto) 0, Neutrophils # (Auto) 5.0, Lymphocytes # (Auto) 1.6, Monocytes # (Auto) 0.9, Eosinophils # (Auto) 0.8H, Basophils # (Auto) 0.0, Sodium Level 143, Potassium Level 3.1L, Chloride Level 110H, Carbon Dioxide Level 25, Anion Gap 8, Blood Urea Nitrogen 11, Creatinine 0.67, Estimat Glomerular Filtration Rate > 60, BUN/ Creatinine Ratio 16, Glucose Level 158H, Calcium Level 7.3L, Magnesium Level 1.5L 02/20/17 12:33: Glucometer 213H Microbiology 02/16/17 Blood Culture - Preliminary, Resulted No growth 02/16/17 MRSA Screen - Final, Complete MRSA not isolated A/P: Assessment/Dx: psychosis, possible drug abuse. Acute diastolic congestive heart failure. Second degree AV block, Mobitz type I. Prolonged QT interval. severe hypertension. Plan: Will defer treatment of infection, acute psychosis to the primary team. Acute diastolic congestive heart failure. Elevated BNP. Echocardiogram showed normal LV function with diastolic dysfunction. Significantly improved therefore DC Lasix. Second degree heart block. continues to have occasional paroxysmal second- degree heart block. Will avoid beta golden and calcium channel golden.. Prolonged QT interval. This is likely secondary to his antipsychotic medications. Will recommend change of psychotropic medications. severe hypertension: Systolic blood pressure over 200 mmHg. We will give lisinopril 40 mg as well as amlodipine 5 mg. Continue to follow. Thank you for your consultation. Please call me if you have any questions. Nataliya Barone MD, FACP, FACC, FSCAI, FHRS, CCDS Interventional Cardiology Cardiac Electrophysiology Vascular Medicine and Endovascular Interventions Mumtaz BARONE MD Feb 20, 2017 10:14 am
--- NOTE | 2017-02-20 13:24 | Physical Therapy Evaluation ---
PT Evaluation-General Medical Diagnosis Admission Date Feb 16, 2017 at 12:17 Medical Diagnosis: acute psychosis Onset Date: Feb 16, 2017 Therapy Diagnosis Therapy Diagnosis: generalized debility Height/Weight Height (Feet): 5 Height (Inches): 8.00 Weight (Pounds): 214 Weight (Ounces): 3.0 Precautions Precautions/Isolations: Fall Prevention, Standard Precautions Weight Bear Status Right Lower Extremity: Right Weight Bearing/Tolerated Left Lower Extremity: Left Weight Bearing/Tolerated Referral Physician: Geovani Reason for Referral: Evaluation/Treatment Medical History Pertinent Medical History: Arthritis, CVA, DM, Parkinson's Current History fall at home, EMS arrived, assessed and patient declined intervention family called a few hours later, EMS returned and patient was admitted due to confusion Reviewed History: Yes Social History Home: Single Level Current Living Status: Alone Entry Into Home: Stairs With Railing PT Steps Into Home: 5 Prior/Core FIM Prior Level of Function Functional [place] Measure 0=Not Assessed/NA 4=Minimal Assistance 1=Total Assistance 5=Supervision or Setup 2=Maximal Assistance 6=Modified [place] 3=Moderate Assistance 7=Complete [place] Bed Mobility: 7 Transfers (B,C,W/C) (FIM): 7 Gait: 7 PT Evaluation-Current Subjective Per patient report, multiple falls, however, he cannot recall how or why he fell. Pain Numeric Pain Scale: 5-Moderate Pain Location: Left Location Body Site: Knee Pain Description: Ache Objective Patient Orientation: Person, Time, Situation Problem Solving: Fair Attachments: Oxygen, Panda Catheter, IV ROM/Strength ROM Lower Extremities bilateral LE WNL Strength Lower Extremities right knee flexion/extension 4/5; hip flexion 4/5; DF/PF 4/5 left knee flexion/extension 4/5; hip flexion 4/5; DF/PF 4/5 Integumentary/Posture Integumentary multiple contusions/abrasions Bladder Incontinence: Panda Cath Posture WNL Neuromuscular (Tone, Coordination, Reflexes) grossly intact Sensory Vision: Functional Hearing: Functional Sensation Left Lower Extremity: Intact Transfers Functional [place] Measure 0=Not Assessed/NA 4=Minimal Assistance 1=Total Assistance 5=Supervision or Setup 2=Maximal Assistance 6=Modified [place] 3=Moderate Assistance 7=Complete [place] Transfers (B, C, W/C) (FIM): 5 Scootin Rollin Supine to/from Sit: 5 Sit to/from Stand: 5 Gait Mode of Locomotion: Walk Anticipated Mode of Locomotion: Walk Gait (FIM): 5 Distance (FIM): 3=150 ft Distance: 300' Gait Level of Assist: 5 Gait Assistive Device: FWW Comments/Gait Description trunk flexed/extended UE with FWW use Balance Sitting Static: Normal Sitting Dynamic: Normal Standing Static: Normal Standing Dynamic: Normal Assessment/Needs 76 y.o. male, will benefit from short term skilled PT to address functional strength and mobility to improve current LOF and to safely return to home or care facility at maximum LOF. Rehab Potential: Fair Post Rehab Potential-Barriers: compliance PT Optical Model Maker And Tester Goals Optical Model Maker And Tester Goals PT Optical Model Maker And Tester Goals Time Frame: Mar 03, 2017 Transfers (B,C,W/C) (FIM): 6 Gait (FIM): 6 Gait distance (FIM): 3=150 ft Gait Level of Assist: 6 Gait Assistive Device: None, FWW PT Plan Problem List Problem List: Activity Tolerance, Safety Treatment/Plan Treatment Plan: Continue Plan of Care Treatment Plan: Education, Functional Activity Manuel, Functional Strength, Gait , Safety, Therapeutic Exercise, Transfers Treatment Duration: Mar 03, 2017 Frequency: 6 times per week Estimated Hrs Per Day: .25 hour per day Patient and/or Family Agrees t: Yes Safety Risks/Education Patient Education: Safety Issues Teaching Recipient: Patient Teaching Methods: Demonstration, Discussion Response to Teaching: Verbalize Understanding, Return Demonstration Discharge Recommendations Therapy D/C Recommendations: Physical Therapy Home Care Time/GCodes Time In: 1250 Time Out: 1310 Total Billed Treatment Time: 20 Total Billed Treatment 1 visit EVModC 20 min G Codes Necessary: ANGELIKA Meyers PT Feb 20, 2017 13:24
[2017-02-20] MEDS: morphine INJ 4 MG/ML 1 ML (VIAL/SYRINGE) IVP PRN (14:01)
[2017-02-20] MEDS: ATORVASTATIN 80 MG (LIPITOR) TABLET PO SCH (20:22)
[2017-02-21] VITALS (14 sets, daily range): BP systolic 131–190; BP diastolic 62–122
[2017-02-21] MEDS: inSUlin ASPART (NovoLOG) 1 UNIT/0.01 ML (CHARGE PER UNIT) SC SCH ×5 (00:54→21:42)
[2017-02-21] MEDS: AMPICILLIN/SULBACTAM INJECTION 3 GM in NS (IVPB) 100 ML IV SCH ×4 (00:54→17:07)
[2017-02-21 04:22] LABS: BASOPHILS % (AUTO) 0 % (0-10); EOSINOPHILS # (AUTO) 0.6 10^3/uL (0.0-0.3); EOSINOPHILS % (AUTO) 8 % (0-10); LYMPHOCYTES # (AUTO) 1.4 X 10^3 (1.0-4.0); LYMPHOCYTES % (AUTO) 18 % (12-44); MEAN CORPUSCULAR HEMOGLOBIN 31 PG (25-34); MEAN CORPUSCULAR HGB CONC 34 G/DL (32-36); MEAN CORPUSCULAR VOLUME 91 FL (80-99); MONOCYTES # (AUTO) 0.9 X 10^3 (0.0-1.0); MONOCYTES % (AUTO) 12 % (0-12); NEUTROPHILS # (AUTO) 4.7 X 10^3 (1.8-7.8); NEUTROPHILS % (AUTO) 62 % (42-75); PLATELET COUNT 305 10^3/uL (130-400); RED BLOOD COUNT 3.03 10^6/uL (4.35-5.85); WHITE BLOOD COUNT 7.6 10^3/uL (4.3-11.0)
[2017-02-21 04:34] LABS: ANION GAP 9 MMOL/L (5-14); BLOOD UREA NITROGEN 6 MG/DL (7-18); BUN/CREATININE RATIO 10; CALCIUM 7.5 MG/DL (8.5-10.1); CARBON DIOXIDE 24 MMOL/L (21-32); CHLORIDE 108 MMOL/L (98-107); CREATININE SERUM 0.58 MG/DL (0.60-1.30); GFR ESTIMATED > 60; GLUCOSE 71 MG/DL (70-105); MAGNESIUM 1.3 MG/DL (1.8-2.4); POTASSIUM 3.2 MMOL/L (3.6-5.0); SODIUM 141 MMOL/L (135-145)
[2017-02-21] MEDS: MAGNESIUM 1 GM/100 ML IVPB 100 ML IV SCH ×4 (05:06→08:13)
[2017-02-21] MEDS: KCL 20 MEQ TAB (K-DUR) PO SCH (05:06)
[2017-02-21] MEDS: POTASSIUM CL 10MEQ/50ML IVPB 50 ML IV SCH (05:06)
[2017-02-21] MEDS ORDERED: KCL 20 MEQ TAB (K-DUR) PO ONE ×2 (05:15→07:15)
[2017-02-21] MEDS: VENlafaxine XR 75 MG (EFFEXOR XR) CAP PO SCH (06:05)
[2017-02-21] MEDS: ACETAMINOPHEN 325 MG TABLET/CAPLET (TYLENOL) PO PRN (06:06)
--- NOTE | 2017-02-21 06:54 | Pulmonary Progress Note ---
Subjective Time Seen by Provider: 06:53 Subjective/Events-last exam PT is doing much better. He is now awake and alert. He is requiring minimal oxygen. CXR appears improved. Exam Exam Vital Signs Date Time Temp Pulse Resp B/P (MAP) Pulse Ox O2 Delivery O2 Flow Rate FiO2 02/21/17 06:00 96 10 176/94 (121) 96 High Flow N/C 2.00 02/21/17 05:00 84 20 163/82 (109) 96 High Flow N/C 2.00 02/21/17 04:00 90 19 183/84 (117) 95 High Flow N/C 2.00 02/21/17 03:00 85 19 175/79 (111) 91 High Flow N/C 2.00 02/21/17 02:00 84 32 170/84 (112) 97 High Flow N/C 2.00 02/21/17 01:00 85 02/21/17 01:00 85 21 157/81 (106) 97 High Flow N/C 2.00 02/21/17 00:00 96 Nasal Cannula 2.00 02/21/17 00:00 80 24 162/69 (100) 95 High Flow N/C 2.00 02/20/17 23:00 109 27 167/85 (112) 93 High Flow N/C 2.00 02/20/17 22:00 108 22 152/99 (116) 96 High Flow N/C 2.00 02/20/17 21:30 90 27 89 High Flow N/C 2.00 02/20/17 21:00 93 24 176/70 (105) 88 Room Air 02/20/17 20:10 93 Room Air 02/20/17 20:00 112 30 157/93 (114) 93 Room Air 02/20/17 19:00 94 02/20/17 19:00 94 26 168/96 (120) 91 Room Air 02/20/17 18:00 105 172/85 (114) 93 Room Air 02/20/17 17:00 115 169/81 (110) 94 Room Air 02/20/17 16:00 98.8 02/20/17 16:00 107 154/97 (116) 93 Room Air 02/20/17 15:00 111 175/83 (113) 90 Room Air 02/20/17 14:00 108 151/84 (106) 93 Room Air 02/20/17 13:00 121 02/20/17 13:00 100.4 111 18 155/73 (100) 95 Room Air 02/20/17 12:00 118 14 172/67 (102) 96 Room Air 02/20/17 12:00 94 Nasal Cannula 1.00 02/20/17 11:00 122 22 161/81 (107) 92 Room Air 02/20/17 10:45 147/76 (99) 02/20/17 10:00 80 14 183/93 (123) 95 Room Air 02/20/17 09:00 96 26 181/83 (115) 97 Nasal Cannula 2.00 02/20/17 08:30 Nasal Cannula 2.00 02/20/17 08:30 94 Nasal Cannula 1.00 02/20/17 08:00 97.4 60 18 135/60 (85) 91 Room Air 02/20/17 07:00 56 02/20/17 07:00 55 22 118/60 (79) 92 Room Air I & O 02/21/17 07:00 Intake Total 2040 ml Output Total 1175 ml Balance 865 ml General Appearance: No Apparent Distress, WD/WN HEENT: Other (facial edema) Neck: Supple Respiratory: Lungs Clear, No Respiratory Distress Cardiovascular: Regular Rate, Rhythm, No Murmur Capillary Refill: Less Than 3 Seconds Gastrointestinal: soft, other Extremity: Non Tender, No Calf Tenderness Neurologic/Psychiatric: Alert, Oriented x3 Skin: Pallor Results Lab Laboratory Tests 02/20/17 04:30 02/21/17 04:10 Assessment/Plan Assessment/Plan Acute psychosis, agitation, and hallucinations- much improved -Risperdal, and PO Xanax Polysubstance abuse -UDS is positive for Methamphetamine, Methadone, Opiates Sepsis with probable pneumonia possible aspiration pneumonia -Unasyn D/C vancomycin -zavala cultures Respiratory distress with hypoxia - improved -Oxygen -monitor Hypomagnesium, Hypokalemia -Replace Fall from same level Obesity with poorly controlled DM -Monitor 233 Pt is doing much better. I am going to sign off and transfer pt to 4th floor. Consult Pt/OT. wean oxygen to D/C as tolerated. Clinical Quality Measures DVT/VTE Risk/Contraindication: Risk Factor Score Per Nursin RFS Level Per Nursing on Admit: 4+=Very High MAURICIO BENSON DO Feb 21, 2017 06:54
[2017-02-21] MEDS: NS W/KCL 20 MEQ/L 1,000 ML IV SCH (07:47)
--- NOTE | 2017-02-21 07:54 | Progress Note-Hospitalist ---
Subjective HPI/CC On Admission Date Seen by Provider: Feb 21, 2017 Time Seen by Provider: 07:40 CC: Acute psychosis HPI: This is a 76yoWM pt who presented with acute psychosis and methamphetamine usage noted on UDS in ER. I am unsure how he arrived to ER. Subjective/Events-last exam reports doing well. Has started to have BMs. He is interested in going to SNF at discharge. Objective Exam Vital Signs Vital Sign - Last 12Hours 02/16/17 02/16/17 02/17/17 10:00 11:30 12:00 Temp 100.0 Pulse 100 Resp 20 B/P (MAP) 176/84 (114) Pulse Ox 94 O2 Delivery Room Air O2 Flow Rate 3.00 FiO2 45 Capillary Refill : Less Than 3 Seconds General Appearance: No Apparent Distress, WD/WN Respiratory: Lungs Clear, No Respiratory Distress Cardiovascular: Regular Rate, Rhythm, No Murmur Gastrointestinal: Normal Bowel Sounds, Non Tender, Soft Extremity: Non Tender, No Calf Tenderness Neurologic/Psychiatric: Alert, Oriented x3 Results/Procedures Lab Laboratory Tests 02/21/17 04:10 Assessment/Plan Assessment and Plan Assess & Plan/Chief Complaint Psychosis Diagnosis/Problems Diagnosis/Problems (1) Acute psychosis Status: Resolved Assessment & Plan: Like due to drug intoxication Now off precedex over 24 hours Will transfer out of ICU (2) Polysubstance abuse Status: Acute Assessment & Plan: Meth on UDS on arrival Concern for K2 ingestion per initial presentation He denies any illicit drug use (3) Parkinson disease Assessment & Plan: Continue Sinemet, Risperdal Has not received any Xanax (4) Essential (primary) hypertension Assessment & Plan: Elevated still Will increase Amlodipine (5) Insulin dependent diabetes mellitus Assessment & Plan: Continue Levemir Blood sugars elevated yesterday Fasting WNL this AM Continue SSI B (6) Prolonged QT interval Assessment & Plan: Continue to monitor on Telemetry Caution with antipsychotics needed Cardiology consulted, appreciate recs (7) Normocytic anemia Assessment & Plan: Improved today, trend No signs of bleeding (8) Hypokalemia Assessment & Plan: On replacement protocol (9) Hypomagnesemia Assessment & Plan: On replacement protocol (10) Leukocytosis Status: Resolved Assessment & Plan: Likely reactive Finish Unasyn today SUSHIL NEGRO MD Feb 21, 2017 07:53
[2017-02-21] MEDS: lisINopril 20 MG (ZESTRIL) TAB PO SCH (08:11)
[2017-02-21] MEDS: risperiDONE 1 MG (RisperDAL) TAB PO SCH ×2 (08:11→21:41)
[2017-02-21] MEDS: PRIMIDONE 50 MG TAB (MYSOLINE) PO SCH ×2 (08:11→21:41)
[2017-02-21] MEDS: ASPIRIN E.C. 81 MG (ECOTRIN) TAB PO SCH (08:11)
[2017-02-21] MEDS: SINEMET CR 50/200 (CARBIDOPA/LEVODOPA SA) TAB PO SCH ×3 (08:11→21:41)
[2017-02-21] MEDS: amLODIPine 10 MG (NORVASC) TAB PO SCH (08:12)
[2017-02-21] MEDS ORDERED: DIPHENOXYLATE/ATROPINE 2.5MG/0.025MG (LOMOTIL) TAB PO PRN (08:30)
[2017-02-21] MEDS: inSUlin DETERMIR 1 UNIT/0.01 ML (LEVEMIR) CHARGE PER UNIT SQ SCH ×2 (09:08→21:42)
--- NOTE | 2017-02-21 09:56 | Physical Therapy Daily Note ---
PT Daily Note-Current Subjective Agreeable to PT. Hoping to go home soon. Mental Status Patient Orientation: Person, Place, Time, Situation Transfers Functional [place] Measure 0=Not Assessed/NA 4=Minimal Assistance 1=Total Assistance 5=Supervision or Setup 2=Maximal Assistance 6=Modified [place] 3=Moderate Assistance 7=Complete IndependenceIRFPAI Quality Coding Scale 6 Independent with activity with or without an assistive device 5 Patient requires set up or clean up by helper. Patient completes activity by themselves 4 Supervision or touching assist (CGA). [place] provide cues , steadying assist 3 The helper provides less than half the effort to complete the activity 2 The helper provides more than half the effort to complete the activity 1 Dependent. The helper does all the effort to complete an activity 7 Patient refused to complete or attempt activity 9 The patient did not perform the activity before the current illness or injury 88 Not attempted due to Medical conditions or safety concerns Transfers (B, C, W/C) (FIM): 5 Supine to/from Sit: 5 Sit to/from Stand: 5 SBA for all functional transfers; no safety concerns noted. Weight Bearing Right Lower Extremity: Right Weight Bearing/Tolerated Left Lower Extremity: Left Weight Bearing/Tolerated Gait Training Gait (FIM): 5 Distance (FIM): 3=150 ft Distance: 200 ft Gait Assistive Device: FWW Relies on walker for gait, reports he does have one at home. Assessment Current Status: Good Progress No noted LOB with gait or transfers; pt able to stand at EOB unsupported safely. Pt did well with ambulation with turns and obstacles in the hallway. In bed post treatment with needs met and bed alarm activated. PT Transformer Stock Clerk Goals Care Home Goals PT Care Home Goals Time Frame: Mar 03, 2017 Transfers (B,C,W/C) (FIM): 6 Gait (FIM): 6 Gait distance (FIM): 3=150 ft Gait Level of Assist: 6 Gait Assistive Device: None, FWW PT Plan Problem List Problem List: Activity Tolerance, Functional Strength, Safety Treatment/Plan Treatment Plan: Continue Plan of Care Treatment Plan: Education, Functional Activity Manuel, Functional Strength, Gait , Safety, Therapeutic Exercise, Transfers Treatment Duration: Mar 03, 2017 Frequency: 6 times per week Estimated Hrs Per Day: .25 hour per day Patient and/or Family Agrees t: Yes Safety Risks/Education Patient Education: Transfer Techniques, Safety Issues Teaching Recipient: Patient Teaching Methods: Demonstration, Discussion Response to Teaching: Reinforcement Needed Time/GCodes Time In: 823 Time Out: 847 Total Billed Treatment Time: 24 Total Billed Treatment visit GT 24 YG STARK PT Feb 21, 2017 09:56
[2017-02-21] MEDS: LACTOBACILLUS Acidoph/Bulgar (LACTINEX/FLORANEX) TAB PO SCH ×2 (11:39→17:07)
--- NOTE | 2017-02-21 13:41 | Occupational Therapy Eval ---
OT Evaluation-General/PLF Medical Diagnosis Admission Date Feb 16, 2017 at 12:17 Medical Diagnosis: acute psychosis Onset Date: Feb 16, 2017 Therapy Diagnosis Therapy Diagnosis: decreased self care skills Height/Weight Height (Feet): 5 Height (Inches): 8.00 Weight (Pounds): 216 Weight (Ounces): 5.0 Precautions Precautions/Isolations: Fall Prevention Safety Interventions: Bed Exit Alarm, Reorient-PRN Referral Physician: Geovani Medical History Pertinent Medical History: Arthritis, CVA, DM, Parkinson's Additional Medical History chronic back pain, anxiety, depression, UTI-chronic, IBS Reviewed History: Yes Social History Home: Single Level Current Living Status: Alone Entry Into Home: Stairs With Railing Steps Into Home: 5 ADL-Prior Level of Function DME/Equipment: Shower Drive Self: Yes OT Current Status Subjective Pt in bed, agrees to treatment. Pt reports left hip pain, but does not rate. Mental Status/Objective Patient Orientation: Person, Place Current Glasses/Contacts: Yes (reading) Hand Dominance: Right Upper Extremity ROM Grossly WFL Upper Extremity Coordination Intact Upper Extremity Strength Grossly 4/5 ADL-Treatment ADL-Current Pt supine to sit with supervision. Sit to stand with SBA. Gait to restroom with SBA for balance. Pt stood at toilet to urinate with SBA. Pt declined further ADLs, returned to bed with SBA. Pt in bed with needs met, RN present, bed alarm on, and telesitter in place. Functional [place] Measure 0=Not Assessed/NA 4=Minimal Assistance 1=Total Assistance 5=Supervision or Setup 2=Maximal Assistance 6=Modified [place] 3=Moderate Assistance 7=Complete IndependenceIRFPAI Quality Coding Scale 6 Independent with activity with or without an assistive device 5 Patient requires set up or clean up by helper. Patient completes activity by themselves 4 Supervision or touching assist (CGA). [place] provide cues , steadying assist 3 The helper provides less than half the effort to complete the activity 2 The helper provides more than half the effort to complete the activity 1 Dependent. The helper does all the effort to complete an activity 7 Patient refused to complete or attempt activity 9 The patient did not perform the activity before the current illness or injury 88 Not attempted due to Medical conditions or safety concerns Toileting (FIM): 5 Education OT Patient Education: Rehab process Teaching Recipient: Patient Teaching Methods: Discussion OT Short Term Goals Short Term Goals 1=Demonstrate adherence to instructed precautions during ADL tasks. 2=Patient will verbalize/demonstrate understanding of assistive devices/ modifications for ADL. 3=Patient will improve strength/tolerance for activity to enable patient to perform ADL's. OT House Fellow Goals Group Home Goals Time Frame: Mar 06, 2017 Eating (FIM): 6 Grooming(FIM): 6 Bathing(FIM): 5 Upper Body Dressing(FIM): 6 Lower Body Dressing(FIM): 6 Toileting(FIM): 6 Toilet/Commode Transfer(FIM): 6 Additional Goals: 2-Verbalize Understanding, 3-ImproveStrength/Manuel 1=Demonstrate adherence to instructed precautions during ADL tasks. 2=Patient will verbalize/demonstrate understanding of assistive devices/ modifications for ADL. 3=Patient will improve strength/tolerance for activity to enable patient to perform ADL's. OT Education/Plan Problem List/Assessment Assessment: Decreased Activ Tolerance, Decreased UE Strength, Dependent Transfers, Impaired Self-Care Skills Pt to benefit from skilled OT intervention for ADL training, transfers, strengthening, and home safety education to maximize level of function and allow safe discharge plan. Discharge Recommendations Plan/Recommendations: Continue POC Treatment Plan/Plan of Care Treatment,Training & Education: Yes Patient would benefit from OT for education, treatment and training to promote independence in ADL's, mobility, safety and/or upper extremity function for ADL' s. Treatment Duration: Mar 06, 2017 Frequency: 5 times per week Estimated Hrs Per Day: .25 hour per day Rehab Potential: Fair Time/GCodes Start Time: 11:28 Stop Time: 11:40 Total Time Billed (hr/min): 12 Billed Treatment Time 1 visit, RUDI(12minutes) CHRISTOPH LAO OT Feb 21, 2017 13:41
--- NOTE | 2017-02-21 14:08 | Cardiology Progress Note ---
Cardiology SOAP Progress Note Subjective: Normal mental status. No cardiac complaints. Objective: I&O/Vital Signs Vital Sign - Last 12Hours 02/21/17 02/21/17 02/21/17 02/21/17 03:00 04:00 04:00 05:00 Pulse 85 90 84 Resp 19 19 20 B/P (MAP) 175/79 (111) 183/84 (117) 163/82 (109) Pulse Ox 91 95 95 96 O2 Delivery High Flow N/C High Flow N/C Nasal Cannula High Flow N/C O2 Flow Rate 2.00 2.00 2.00 2.00 02/21/17 02/21/17 02/21/17 02/21/17 06:00 07:00 07:00 08:18 Pulse 96 108 108 Resp 10 11 B/P (MAP) 176/94 (121) 177/122 (140) Pulse Ox 96 95 93 O2 Delivery High Flow N/C High Flow N/C Room Air O2 Flow Rate 2.00 2.00 02/21/17 02/21/17 02/21/17 02/21/17 08:18 09:00 10:20 12:24 Temp 98.7 98.7 99.7 Pulse 98 89 90 87 Resp 15 24 20 20 B/P (MAP) 190/79 (116) 185/78 (113) 148/76 (100) 131/62 (85) Pulse Ox 93 96 93 93 O2 Delivery Room Air Room Air Room Air Room Air 02/21/17 13:00 Pulse 103 Intake and Output 02/21/17 00:00 Intake Total 1420 ml Output Total 850 ml Balance 570 ml Weight (Pounds): 216 Weight (Ounces): 5.0 Weight (Calculated Kilograms): 98.557492 Constitutional: other (not alert or oriented.) Respiratory: No accessory muscle use, No respiratory distress, No chest tender , No chest expansion is symmetric, No chest is bilaterally symmetric, No lungs clear to percussion, No lungs clear to auscultation, No crackles, No rhonchi, No rales, No stridor, No wheezing, No pleural rub, No other Cardiovascular: No regular rate-rhythm, No irregularly irregular, No extra beats, No parasternal heave is noted, No JVD, No edema, No bradycardia, No tachycardia, No point of maximal impulse, No cardiac thrills are palpable, No S1 and S2, No gallop/S3, No gallop/S4, No diastolic murmur, No systolic murmur, No friction rub, No click, No other Gastrointestional: No tender, No soft, No round, No distended, No pulsatile mass, No organomegaly, No guarding, No rebound, No tenderness, No hernia, No mass, No audible bowel sounds, No abnormal bowel sounds, No abdominal bruits, No spleenomegaly, No other Extremities: No normal range of motion, No non-tender, No normal inspection, No pedal edema, No calf tenderness, No normal capillary refill, No pelvis stable , No calf tenderness, No inflammation, No pedal edema, No slow capillary refill , No swelling, No other, No abrasion, No clubbing, No cyanosis, No ecchymosis, No laceration, No no lower extremity edema bilateral, No significant edema, No tenderness, No wound Neurologic/Psychiatric: No booth manager II-XII nml as tested, No no motor/sensory deficits, No alert, No normal mood/affect, No oriented x 3, No abnormal cerebellar tests, No abnormal booth manager II-XII, No abnormal gait, No aphasia, No EOM palsy, No facial droop, No motor weakness, No sensory deficit, No depressed affect, No disoriented x 3, No other, No grossly intact, No power is 5/5 both on sides Skin: normal color, warm/dry Results/Procedures: Labs Laboratory Tests 02/20/17 15:56: Glucometer 106 02/20/17 20:27: Glucometer 172H 02/21/17 00:53: Glucometer 136H 02/21/17 04:10: White Blood Count 7.6, Red Blood Count 3.03L, Hemoglobin 9.3L, Hematocrit 28L, Mean Corpuscular Volume 91, Mean Corpuscular Hemoglobin 31, Mean Corpuscular Hemoglobin Concent 34, Red Cell Distribution Width 13.0, Platelet Count 305, Mean Platelet Volume 9.0, Neutrophils (%) (Auto) 62, Lymphocytes (%) (Auto) 18, Monocytes (%) (Auto) 12, Eosinophils (%) (Auto) 8, Basophils (%) (Auto) 0, Neutrophils # (Auto) 4.7, Lymphocytes # (Auto) 1.4, Monocytes # (Auto) 0.9, Eosinophils # (Auto) 0.6H, Basophils # (Auto) 0.0, Sodium Level 141, Potassium Level 3.2L, Chloride Level 108H, Carbon Dioxide Level 24, Anion Gap 9, Blood Urea Nitrogen 6L, Creatinine 0.58L, Estimat Glomerular Filtration Rate > 60, BUN /Creatinine Ratio 10, Glucose Level 71, Calcium Level 7.5L, Magnesium Level 1.3L 02/21/17 10:55: Glucometer 201H Microbiology 02/16/17 Blood Culture - Preliminary, Resulted No growth 02/16/17 MRSA Screen - Final, Complete MRSA not isolated A/P: Assessment/Dx: psychosis, possible drug abuse-much improved. Acute diastolic congestive heart failure-resolved. Second degree AV block, Mobitz type I. Prolonged QT interval. severe hypertension. Plan: Will defer treatment of infection, acute psychosis to the primary team. Much improved. Acute diastolic congestive heart failure. Resolved. Elevated BNP on admission. Echocardiogram showed normal LV function with diastolic dysfunction. Significantly improved therefore DC Lasix. Second degree heart block. continues to have occasional paroxysmal second- degree heart block. Will avoid beta golden and calcium channel golden.. Prolonged QT interval. This is likely secondary to his antipsychotic medications. Will recommend change of psychotropic medications. severe hypertension: Systolic blood pressure previously over 200 mmHg. We will give lisinopril 40 mg as well as amlodipine 5 mg. Continue to follow. Thank you for your consultation. Please call me if you have any questions. Nataliya Barone MD, FACP, FACC, FSCAI, FHRS, CCDS Interventional Cardiology Cardiac Electrophysiology Vascular Medicine and Endovascular Interventions Mumtaz BARONE MD Feb 21, 2017 2:08 pm
[2017-02-21] MEDS: ATORVASTATIN 80 MG (LIPITOR) TABLET PO SCH (21:41)
[2017-02-22] VITALS: BP 189/89
[2017-02-22] MEDS: AMPICILLIN/SULBACTAM INJECTION 3 GM in NS (IVPB) 100 ML IV SCH ×2 (00:18→05:59)
[2017-02-22 04:00] VITALS: BP 163/74
[2017-02-22] MEDS: inSUlin ASPART (NovoLOG) 1 UNIT/0.01 ML (CHARGE PER UNIT) SC SCH ×2 (05:30→11:59)
[2017-02-22 05:55] LABS: BASOPHILS % (AUTO) 0 % (0-10); EOSINOPHILS # (AUTO) 0.4 10^3/uL (0.0-0.3); EOSINOPHILS % (AUTO) 5 % (0-10); LYMPHOCYTES # (AUTO) 1.9 X 10^3 (1.0-4.0); LYMPHOCYTES % (AUTO) 23 % (12-44); MEAN CORPUSCULAR HEMOGLOBIN 30 PG (25-34); MEAN CORPUSCULAR HGB CONC 34 G/DL (32-36); MEAN CORPUSCULAR VOLUME 90 FL (80-99); MEAN PLATELET VOLUME 9.3 FL (7.4-10.4); MONOCYTES # (AUTO) 0.8 X 10^3 (0.0-1.0); MONOCYTES % (AUTO) 10 % (0-12); NEUTROPHILS # (AUTO) 5.1 X 10^3 (1.8-7.8); NEUTROPHILS % (AUTO) 62 % (42-75); PLATELET COUNT 379 10^3/uL (130-400); RED BLOOD COUNT 3.51 10^6/uL (4.35-5.85); WHITE BLOOD COUNT 8.3 10^3/uL (4.3-11.0)
[2017-02-22] MEDS: LACTOBACILLUS Acidoph/Bulgar (LACTINEX/FLORANEX) TAB PO SCH ×2 (05:59→11:06)
[2017-02-22] MEDS: VENlafaxine XR 75 MG (EFFEXOR XR) CAP PO SCH (05:59)
[2017-02-22 06:11] LABS: ANION GAP 9 MMOL/L (5-14); BLOOD UREA NITROGEN 5 MG/DL (7-18); BUN/CREATININE RATIO 8; CALCIUM 7.9 MG/DL (8.5-10.1); CARBON DIOXIDE 26 MMOL/L (21-32); CHLORIDE 106 MMOL/L (98-107); CREATININE SERUM 0.64 MG/DL (0.60-1.30); GFR ESTIMATED > 60; GLUCOSE 120 MG/DL (70-105); MAGNESIUM 1.4 MG/DL (1.8-2.4); POTASSIUM 3.7 MMOL/L (3.6-5.0); SODIUM 141 MMOL/L (135-145)
[2017-02-22 08:00] VITALS: BP 173/77
[2017-02-22] MEDS: risperiDONE 1 MG (RisperDAL) TAB PO SCH (08:44)
[2017-02-22] MEDS: PRIMIDONE 50 MG TAB (MYSOLINE) PO SCH (08:44)
[2017-02-22] MEDS: amLODIPine 10 MG (NORVASC) TAB PO SCH (08:44)
[2017-02-22] MEDS: SINEMET CR 50/200 (CARBIDOPA/LEVODOPA SA) TAB PO SCH ×2 (08:45→13:36)
[2017-02-22] MEDS: lisINopril 20 MG (ZESTRIL) TAB PO SCH (08:45)
[2017-02-22] MEDS: inSUlin DETERMIR 1 UNIT/0.01 ML (LEVEMIR) CHARGE PER UNIT SQ SCH (08:45)
[2017-02-22] MEDS: ASPIRIN E.C. 81 MG (ECOTRIN) TAB PO SCH (08:45)
[2017-02-22] MEDS ORDERED: APAP 300 MG/CODEINE 30 MG (TYLENOL #3) TAB PO PRN (09:45)
[2017-02-22] MEDS ORDERED: AMLO10TA2 PO (09:47)
[2017-02-22] MEDS ORDERED: ACID1TAB PO (09:47)
[2017-02-22] MEDS ORDERED: RISP1TAB3 PO (09:47)
[2017-02-22] MEDS ORDERED: ACET1TAB43 PO (09:47)
--- NOTE | 2017-02-22 09:50 | Discharge Inst-Skilled Nursing ---
Discharge Inst-Skilled NF Consult/Follow Up/Orders Skilled NF Admit to: [facility] Certification (SNF) I certify that SNF services are required to be given on an inpatient basis because of the above named patient's need for [facility] care on a continuing basis for the conditions(s) for which he/she was receiving inpatient hospital services prior to his/her transfer to the SNF. [facility] Facility Order: Nursing Services, [place] Control Operator-Evaluate & Treat, Physical Therapy-Evaluate & Treat Discharge Diet: ADA Diet Daily Activity as Tolerated: Yes New & Resume Previous Orders Sushil Lux Feb 22, 2017 09:50 SUSHIL LUX MD Feb 22, 2017 09:50
[2017-02-22] MEDS: MAGNESIUM 1 GM/100 ML IVPB 100 ML IV SCH ×2 (11:02→11:58)
[2017-02-22] MEDS: ACETAMINOPHEN 325 MG TABLET/CAPLET (TYLENOL) PO PRN (11:06)
--- NOTE | 2017-02-22 11:17 | Physical Therapy Daily Note ---
PT Daily Note-Current Subjective Pt in shower upon arrival. Pt agrees to walk & reports discharging this afternoon, confirmed by Nurse. Pain Numeric Pain Scale: 0-No Pain Location: No Pain Reported Mental Status Patient Orientation: Person, Place, Time, Situation Transfers Functional [place] Measure 0=Not Assessed/NA 4=Minimal Assistance 1=Total Assistance 5=Supervision or Setup 2=Maximal Assistance 6=Modified [place] 3=Moderate Assistance 7=Complete IndependenceIRFPAI Quality Coding Scale 6 Independent with activity with or without an assistive device 5 Patient requires set up or clean up by helper. Patient completes activity by themselves 4 Supervision or touching assist (CGA). [place] provide cues , steadying assist 3 The helper provides less than half the effort to complete the activity 2 The helper provides more than half the effort to complete the activity 1 Dependent. The helper does all the effort to complete an activity 7 Patient refused to complete or attempt activity 9 The patient did not perform the activity before the current illness or injury 88 Not attempted due to Medical conditions or safety concerns Scootin Sit to/from Stand: 5 Weight Bearing Right Lower Extremity: Right Weight Bearing/Tolerated Left Lower Extremity: Left Weight Bearing/Tolerated Gait Training Distance (FIM): 3=150 ft Distance: 350' Gait Level of Assist: 5 Gait Persons Needed: 1 Gait Assistive Device: FWW Pt walks with normalized gait and tiffany. Treatments Pt just coming out of shower upon arrival. MANAGEMENT ADVISOR and ADVANCED PRACTICE NURSE minimally assist pt with dressing while sitting and standing. Pt then takes a walk in hallway. Pt ambulates using FWW at SBA. Pt returns to room to rest and Nurse to start Magnesium before discharge this afternoon. Pt has all needs met at end of tx. Assessment Current Status: Good Progress Pt is ambulating, transferring and completing ADLs better than previous days. PT Fire Management Specialist Goals Fire Management Specialist Goals PT Fire Management Specialist Goals Time Frame: Mar 03, 2017 Transfers (B,C,W/C) (FIM): 6 Gait (FIM): 6 Gait distance (FIM): 3=150 ft Gait Level of Assist: 6 Gait Assistive Device: None, FWW PT Plan Problem List Problem List: Activity Tolerance Treatment/Plan Treatment Plan: Continue Plan of Care Treatment Plan: Education, Functional Activity Manuel, Functional Strength, Gait , Safety, Therapeutic Exercise, Transfers Treatment Duration: Mar 03, 2017 Frequency: 6 times per week Estimated Hrs Per Day: .25 hour per day Patient and/or Family Agrees t: Yes Safety Risks/Education Patient Education: Gait Training, Transfer Techniques, Correct Positioning, Safety Issues Teaching Recipient: Patient Teaching Methods: Discussion Response to Teaching: Verbalize Understanding Time/GCodes Time In: 1030 Time Out: 1100 Total Billed Treatment Time: 30 Total Billed Treatment 1, GT (20m) & FA (10m) JERARDO DANIEL MANAGEMENT ADVISOR Feb 22, 2017 11:17
--- NOTE | 2017-02-22 11:52 | Occupational Ther Daily Note ---
OT Current Status-Daily Note Subjective Pt alert, getting up to walk into the bathroom. Pt agreed to therapy. No c/o pain. DOMINIQUE was notified that pt will be discharged to [place] today. Mental Status/Objective Functional [place] Measure 0=Not Assessed/NA 4=Minimal Assistance 1=Total Assistance 5=Supervision or Setup 2=Maximal Assistance 6=Modified [place] 3=Moderate Assistance 7=Complete [place] ADL-Treatment Pt was mod I for transfer onto toilet and completed toilet hygiene and manipulation of clothes. Pt then transferred into shower and was completing shower with mod I. Nrsg and PT took over care of pt. All needs met in room. Bathing (FIM): 6 Toileting (FIM): 6 Toilet/Commode Transfer (FIM): 6 OT Short Term Goals Short Term Goals 1=Demonstrate adherence to instructed precautions during ADL tasks. 2=Patient will verbalize/demonstrate understanding of assistive devices/ modifications for ADL. 3=Patient will improve strength/tolerance for activity to enable patient to perform ADL's. OT Halfway Goals Rock Singer Goals Time Frame: Mar 06, 2017 Eating (FIM): 6 Grooming(FIM): 6 Bathing(FIM): 5 Upper Body Dressing(FIM): 6 Lower Body Dressing(FIM): 6 Toileting(FIM): 6 Toilet/Commode Transfer(FIM): 6 Additional Goals: 2-Verbalize Understanding, 3-ImproveStrength/Manuel 1=Demonstrate adherence to instructed precautions during ADL tasks. 2=Patient will verbalize/demonstrate understanding of assistive devices/ modifications for ADL. 3=Patient will improve strength/tolerance for activity to enable patient to perform ADL's. OT Education/Plan Problem List/Assessment Pt to benefit from skilled OT intervention for ADL training, transfers, strengthening, and home safety education to maximize level of function and allow safe discharge plan. Discharge Recommendations Plan/Recommendations: Continue POC Treatment Plan/Plan of Care Patient would benefit from OT for education, treatment and training to promote independence in ADL's, mobility, safety and/or upper extremity function for ADL' s. Treatment Duration: Mar 06, 2017 Frequency: 5 times per week Estimated Hrs Per Day: .25 hour per day Rehab Potential: Fair Time/GCodes Start Time: 10:23 Stop Time: 10:30 Total Time Billed (hr/min): 7 Billed Treatment Time 1 visit YG RICE Feb 22, 2017 11:52
[2017-02-22 12:00] VITALS: BP 168/74
--- NOTE | 2017-02-22 12:40 | Discharge Summary-Hospitalist ---
Diagnosis/Chief Complaint Date of Admission Feb 16, 2017 at 12:17 pm Date of Discharge Discharge Date: Feb 22, 2017 Admission Diagnosis Assessment: Acute psychosis with fever, elevated lactic acid and Meth on UDS in patient w/h/ o Rx med abuse in the past and amphetamine use in 1970's Depression previous suicide ideation 11/07/14 [facility] admit HTN BPH DM Chronic UTI CVA hx Discharge Diagnosis Psychosis (1) Acute psychosis Status: Resolved Assessment & Plan: Like due to drug intoxication, advised cessation though he denies use since the 70s Offf precedex over 24 hours (2) Polysubstance abuse Status: Acute Assessment & Plan: Meth on UDS on arrival Concern for K2 ingestion per initial presentation He denies any illicit drug use (3) Parkinson disease Assessment & Plan: Continue Sinemet, Risperdal Has not received any Xanax (4) Essential (primary) hypertension Assessment & Plan: Elevated still Improving with increase Amlodipine (5) Insulin dependent diabetes mellitus Assessment & Plan: Continue Levemir Blood sugars elevated yesterday Fasting WNL this AM Continue SSI B (6) Prolonged QT interval Assessment & Plan: Continue to monitor on Telemetry Caution with antipsychotics needed Cardiology consulted, appreciate recs (7) Normocytic anemia Assessment & Plan: Improved again today, trend No signs of bleeding (8) Hypokalemia Assessment & Plan: On replacement protocol (9) Hypomagnesemia Assessment & Plan: On replacement protocol (10) Leukocytosis Status: Resolved Assessment & Plan: Likely reactive, off abx Discharge Summary Consultations Dr Barone- Cardiology Dr. Doty- Pul Discharge Physical Examination Allergies: Coded Allergies: metformin (Verified Allergy, Unknown, 10/22/14) Vitals & I&Os Vital Signs Date Time Temp Pulse Resp B/P (MAP) Pulse Ox O2 Delivery O2 Flow Rate FiO2 02/22/17 12:00 98.4 94 18 168/74 (105) 94 Room Air 02/21/17 07:00 2.00 02/19/17 04:00 28 Hospital Course Pt was admitted to the ICU for acute psychosis due to needing precedex drip. His symptoms improved and was able to be titrated off the precedex. He was found to have a prolonged QT and due to this his antipsychotic choices were limited. He was eventually weaned to oral medications and his symptoms were controlled Risperdal and Effexor. He was transferred to SNF for rehab from his illness and I recommended considering long term care phlebotomist stay there after acute rehab over. Labs (last 24 hrs) Laboratory Tests 02/21/17 16:35: Glucometer 145H 02/21/17 21:30: Glucometer 273H 02/22/17 05:16: Glucometer 111H 02/22/17 05:18: White Blood Count 8.3, Red Blood Count 3.51L, Hemoglobin 10.6L, Hematocrit 32L, Mean Corpuscular Volume 90, Mean Corpuscular Hemoglobin 30, Mean Corpuscular Hemoglobin Concent 34, Red Cell Distribution Width 13.0, Platelet Count 379, Mean Platelet Volume 9.3, Neutrophils (%) (Auto) 62, Lymphocytes (%) (Auto) 23, Monocytes (%) (Auto) 10, Eosinophils (%) (Auto) 5, Basophils (%) (Auto) 0, Neutrophils # (Auto) 5.1, Lymphocytes # (Auto) 1.9, Monocytes # (Auto) 0.8, Eosinophils # (Auto) 0.4H, Basophils # (Auto) 0.0, Sodium Level 141, Potassium Level 3.7, Chloride Level 106, Carbon Dioxide Level 26, Anion Gap 9, Blood Urea Nitrogen 5L, Creatinine 0.64, Estimat Glomerular Filtration Rate > 60, BUN/ Creatinine Ratio 8, Glucose Level 120H, Calcium Level 7.9L, Magnesium Level 1.4L 02/22/17 11:33: Glucometer 228H Microbiology 02/16/17 Blood Culture - Final, Complete No growth 02/16/17 MRSA Screen - Final, Complete MRSA not isolated Pending Labs Laboratory Tests 02/22/17 05:16: Glucometer 111 02/22/17 05:18: White Blood Count 8.3, Red Blood Count 3.51, Hemoglobin 10.6, Hematocrit 32, Mean Corpuscular Volume 90, Mean Corpuscular Hemoglobin 30, Mean Corpuscular Hemoglobin Concent 34, Red Cell Distribution Width 13.0, Platelet Count 379, Mean Platelet Volume 9.3, Neutrophils (%) (Auto) 62, Lymphocytes (%) (Auto) 23, Monocytes (%) (Auto) 10, Eosinophils (%) (Auto) 5, Basophils (%) (Auto) 0, Neutrophils # (Auto) 5.1, Lymphocytes # (Auto) 1.9, Monocytes # (Auto) 0.8, Eosinophils # (Auto) 0.4, Basophils # (Auto) 0.0, Sodium Level 141, Potassium Level 3.7, Chloride Level 106, Carbon Dioxide Level 26, Anion Gap 9, Blood Urea Nitrogen 5, Creatinine 0.64, Estimat Glomerular Filtration Rate > 60, BUN/ Creatinine Ratio 8, Glucose Level 120, Calcium Level 7.9, Magnesium Level 1.4 02/22/17 11:33: Glucometer 228 Discharge Home Medications: Active Scripts Active Floranex Tablet (L. Acidophilus/Bulgaricus) 1 Each Tablet 1 Tab.chew PO AC Risperidone 1 Mg Tablet 1.5 Mg PO BID Acetaminophen-Cod #3 Tablet (Acetaminophen with Codeine) 1 Each Tablet 0.5 Tab PO Q6H PRN Amlodipine Besylate 10 Mg Tablet 10 Mg PO DAILY Reported Lisinopril 40 Mg Tablet 40 Mg PO BID Fluticasone Propionate 16 Gm [place].susp 2 Sprays NS DAILY PRN Primidone 50 Mg Tablet 50 Mg PO BID LAST FILLED FROM [place] 09-18-16 #60 Voltaren (Diclofenac Sodium) 100 Gm Gel..gram. 2 Gm TP QID PRN Tylenol Extra Strength (Acetaminophen) 500 Mg Tablet 1,000 Mg PO Q8H PRN Venlafaxine HCl ER (Venlafaxine HCl) 150 Mg Tab.er.24 150 Mg PO DAILY Trazodone HCl 100 Mg Tablet 200 Mg PO HS Mirtazapine 15 Mg Tablet 15 Mg PO HS Soma (Carisoprodol) 350 Mg Tablet 350 Mg PO QID Carbidopa-Levo ER 50-200 Tab (Carbidopa/Levodopa) 1 Each Tablet.er 1 Tab PO TID Flomax (Tamsulosin HCl) 0.4 Mg Cap 0.4 Mg PO 1730 Lantus Solostar (Insulin Glargine,Hum.rec.anlog) 100 Unit/1 Ml Insuln.pen 50 Unit SQ BID Aspirin EC (Aspirin) 81 Mg Tablet.dr 81 Mg PO DAILY Lipitor (Atorvastatin Calcium) 80 Mg Tablet 80 Mg PO HS Novolog Flexpen (Insulin Aspart) 300 Units/3 Ml Solution 25 Units SQ TIDAC Instructions to patient/family Please see electronic discharge instructions given to patient. Clinical Quality Measures DVT/VTE Risk/Contraindication: Risk Factor Score Per Nursin RFS Level Per Nursing on Admit: 4+=Very High SUSHIL NEGRO MD Feb 22, 2017 12:40 pm
--- NOTE | 2017-02-22 13:11 | Cardiology Progress Note ---
Cardiology SOAP Progress Note Subjective: No active cardiac issues. Objective: I&O/Vital Signs Vital Sign - Last 12Hours 02/22/17 02/22/17 02/22/17 02/22/17 04:00 06:57 08:00 12:00 Temp 98.6 99.0 98.4 Pulse 86 83 82 94 Resp 20 18 18 B/P (MAP) 163/74 (103) 173/77 (109) 168/74 (105) Pulse Ox 94 95 94 O2 Delivery Room Air Room Air Room Air Intake and Output 02/22/17 00:00 Intake Total 1410 ml Output Total 700 ml Balance 710 ml Weight (Pounds): 209 Weight (Ounces): 1.0 Weight (Calculated Kilograms): 94.569351 Constitutional: other (not alert or oriented.) Respiratory: No accessory muscle use, No respiratory distress, No chest tender , No chest expansion is symmetric, No chest is bilaterally symmetric, No lungs clear to percussion, No lungs clear to auscultation, No crackles, No rhonchi, No rales, No stridor, No wheezing, No pleural rub, No other Cardiovascular: No regular rate-rhythm, No irregularly irregular, No extra beats, No parasternal heave is noted, No JVD, No edema, No bradycardia, No tachycardia, No point of maximal impulse, No cardiac thrills are palpable, No S1 and S2, No gallop/S3, No gallop/S4, No diastolic murmur, No systolic murmur, No friction rub, No click, No other Gastrointestional: No tender, No soft, No round, No distended, No pulsatile mass, No organomegaly, No guarding, No rebound, No tenderness, No hernia, No mass, No audible bowel sounds, No abnormal bowel sounds, No abdominal bruits, No spleenomegaly, No other Extremities: No normal range of motion, No non-tender, No normal inspection, No pedal edema, No calf tenderness, No normal capillary refill, No pelvis stable , No calf tenderness, No inflammation, No pedal edema, No slow capillary refill , No swelling, No other, No abrasion, No clubbing, No cyanosis, No ecchymosis, No laceration, No no lower extremity edema bilateral, No significant edema, No tenderness, No wound Neurologic/Psychiatric: No practicing urologist II-XII nml as tested, No no motor/sensory deficits, No alert, No normal mood/affect, No oriented x 3, No abnormal cerebellar tests, No abnormal practicing urologist II-XII, No abnormal gait, No aphasia, No EOM palsy, No facial droop, No motor weakness, No sensory deficit, No depressed affect, No disoriented x 3, No other, No grossly intact, No power is 5/5 both on sides Skin: normal color, warm/dry Results/Procedures: Labs Laboratory Tests 02/21/17 16:35: Glucometer 145H 02/21/17 21:30: Glucometer 273H 02/22/17 05:16: Glucometer 111H 02/22/17 05:18: White Blood Count 8.3, Red Blood Count 3.51L, Hemoglobin 10.6L, Hematocrit 32L, Mean Corpuscular Volume 90, Mean Corpuscular Hemoglobin 30, Mean Corpuscular Hemoglobin Concent 34, Red Cell Distribution Width 13.0, Platelet Count 379, Mean Platelet Volume 9.3, Neutrophils (%) (Auto) 62, Lymphocytes (%) (Auto) 23, Monocytes (%) (Auto) 10, Eosinophils (%) (Auto) 5, Basophils (%) (Auto) 0, Neutrophils # (Auto) 5.1, Lymphocytes # (Auto) 1.9, Monocytes # (Auto) 0.8, Eosinophils # (Auto) 0.4H, Basophils # (Auto) 0.0, Sodium Level 141, Potassium Level 3.7, Chloride Level 106, Carbon Dioxide Level 26, Anion Gap 9, Blood Urea Nitrogen 5L, Creatinine 0.64, Estimat Glomerular Filtration Rate > 60, BUN/ Creatinine Ratio 8, Glucose Level 120H, Calcium Level 7.9L, Magnesium Level 1.4L 02/22/17 11:33: Glucometer 228H Microbiology 02/16/17 Blood Culture - Final, Complete No growth 02/16/17 MRSA Screen - Final, Complete MRSA not isolated A/P: Assessment/Dx: psychosis, possible drug abuse-much improved. Acute diastolic congestive heart failure-resolved. Second degree AV block, Mobitz type I. Prolonged QT interval. severe hypertension. Plan: Will defer treatment of infection, acute psychosis to the primary team. Much improved. Acute diastolic congestive heart failure. Resolved. Elevated BNP on admission. Echocardiogram showed normal LV function with diastolic dysfunction. Significantly improved therefore DC Lasix. Second degree heart block. continues to have rare paroxysmal second-degree heart block. Will avoid beta golden and calcium channel golden. Asymptomatic therefore nothing to do further. Prolonged QT interval. This is likely secondary to his antipsychotic medications. Will recommend change of psychotropic medications. severe hypertension: Much better control at this point in time. Continue same medications. I can follow-up as an outpatient if required. Dr. Melendez covering cardiology inpatient service from tomorrow. Thank you for your consultation. Please call me if you have any questions. Nataliya Barone MD, FACP, FACC, FSCAI, FHRS, CCDS Interventional Cardiology Cardiac Electrophysiology Vascular Medicine and Endovascular Interventions Mumtaz BARONE MD Feb 22, 2017 1:11 pm
[2017-02-22 15:45] VITALS: BP 168/74
== END 2017-02-22 15:50 | DRG 896 ==
LOC: EDUNIT# 10:00 → ER 10:02 → ICU 12:17 → 4TH 02-21 10:06
PROVIDERS: ADMIT Internal Medicine; ATTEND Internal Medicine
PROC: 02HV33Z Insertion of Infusion Device into Superior Vena Cava, Percutaneous Approach (ICD-10-PCS; principal; 2017-02-17)
DX: F15.151 Other stimulant abuse with stimulant-induced psychotic disorder with hallucinations (principal); I50.31 Acute diastolic (congestive) heart failure; G20 Parkinson's disease; I10 Essential (primary) hypertension; E11.9 Type 2 diabetes mellitus without complications; E87.0 Hyperosmolality and hypernatremia; D64.9 Anemia, unspecified; E87.6 Hypokalemia; E83.42 Hypomagnesemia; I44.1 Atrioventricular block, second degree; F32.9 Major depressive disorder, single episode, unspecified; F41.9 Anxiety disorder, unspecified; N40.0 Benign prostatic hyperplasia without lower urinary tract symptoms; I87.2 Venous insufficiency (chronic) (peripheral); S90.932A Unspecified superficial injury of left great toe, initial encounter; Z87.891 Personal history of nicotine dependence; Z86.73 Personal history of transient ischemic attack (TIA), and cerebral infarction without residual deficits; Z79.4 Long term (current) use of insulin; X83.8XXA Intentional self-harm by other specified means, initial encounter
CPT/HCPCS: 36415; 51702; 70450; 71010; 72040; 72125; 80048; 80053; 80202; 80306; 80320; 80329; 81000; 82040; 82805; 82962; 83605; 83735; 83880; 84100; 84443; 84450; 84460; 85007; 85025; 85027; 85610; 85730; 87040; 87081; 87804; 93005; 93306; 94660; 96372; 96374; 96375; 96376

== ENCOUNTER 2017-03-02 00:55 | Observation (INO) | payer MEDICARE ==
[~2017-03-02] VITALS: Ht 177.8 cm; Wt 95.7 kg
[~2017-03-02 00:55] MED LIST changes: +ACET-2267 PO; +ACET1TAB43 PO; +ACID1TAB PO; +AMLO10TA2 PO; +ASPI-983 PO; +CARB1TAB41 PO; +CARI350T PO; +DICL100G18 TP; +FLUT16SP22 NS; +MIRT15TA6 PO; +RISP1TAB3 PO; +TAMS0.4C98 PO; +TRAZ100T92 PO; +VENL150T PO
[2017-03-02] MEDS ORDERED: DEXTROSE 50% 50 ML (IMS) SYR ONE ×2 (01:02→03:50)
[2017-03-02] MEDS ORDERED: DEXTROSE 50% 50 ML (IMS) SYR IV ONE ×2 (01:15→04:00)
--- OUTSIDE RECORDS SUMMARY | 2017-03-02 01:23 | XMS REPORT | Continuity of Care Document ---
Author Author [facility] Organization [facility] Address Unknown Phone Unavailable Allergies Active Description Code Type Severity Reaction Onset Reported/Identified Relationship to Patient Clinical Status Yes metformin [id number] Drug Allergy Unknown N/A 10/22/2014 Medications There [...] DIABETES MELLITUS WITH HYPERGLYCE 07/11/2016 KHURRAMVENESSA Marsha AIRFRAME TECHNICIAN Ot S02.2XXA FRACTURE OF NASAL BONES, INIT ENCNTR FOR 07/11/2016 PAULSONVENESSA CARIAS Marsha AIRFRAME TECHNICIAN Ot W19.XXXA UNSPECIFIED FALL, INITIAL ENCOUNTER 07/11/2016 VENESSA PAULSON Marsha AIRFRAME TECHNICIAN Ot Y99.8 OTHER EXTERNAL CAUSE STATUS 07/11/2016 VENESSA PAULSON Marsha AIRFRAME TECHNICIAN Ot Z87.891 PERSONAL HISTORY OF NICOTINE DEPENDENCE [...] plasma ethanol measurement (mass/volume) < mg/dL <10 Bacterial blood culture - 02/16/17 10:25 Bacterial blood culture NG [facility] PT panel in platelet poor plasma by [...] poor plasma bycoagulation assay 28 s 24-35 Bacterial blood culture - 02/16/17 10:53 Bacterial blood culture NG [facility] Influenza virus A and B antigen detection - 02/16/17 11:23 FLU RESULT NEGATIVE FOR INFLUENZA A AND B ANTIGENS BY IA NR Complete urinalysis with reflex to culture - [...] NEGATIVE NEGATIVE Urine propoxyphene detection NEGATIVE NEGATIVE Serum or plasma lactate measurement (moles/volume) - 02/16/17 12:45 Serum or plasma lactate measurement (moles/volume) 1.21 mmol/L 0.50-2.00 Capillary blood glucose measurement by glucometer (mass/volume) - 02/16/17 13: 55 Capillary blood glucose measurement by glucometer (mass/volume) 260 mg/dL 70-110 Methicillin resistant Staphylococcus aureus (MRSA) screening culture - 15:45 Methicillin resistant Staphylococcus aureus (MRSA) screening culture NEG NRG Capillary blood glucose measurement by glucometer (mass/volume) - 02/16/17 15: 58 Capillary blood glucose measurement by glucometer (mass/volume) 275 mg/dL 70-110 Capillary blood glucose measurement by glucometer (mass/volume) - 02/16/17 18: 05 Capillary blood glucose measurement by glucometer (mass/volume) 269 mg/dL 70-110 Capillary blood glucose measurement by glucometer (mass/volume) - 02/16/17 20: 04 Capillary blood glucose measurement by glucometer (mass/volume) 260 mg/dL 70-110 Capillary blood glucose measurement by glucometer (mass/volume) - 02/16/17 22: 23 Capillary blood glucose measurement by glucometer (mass/volume) 186 mg/dL 70-110 Capillary blood glucose measurement by glucometer (mass/volume) - 02/17/17 00: 12 Capillary blood glucose measurement by glucometer (mass/volume) 171 mg/dL 70-110 Capillary blood glucose measurement by glucometer (mass/volume) - 02/17/17 02: 04 Capillary blood glucose measurement by glucometer (mass/volume) 146 mg/dL 70-110 Complete urinalysis with reflex to culture - 02/17/17 03:50 Urine color determination YELLOW NRG Urine clarity determination CLEAR NRG Urine pH measurement by test strip 5 5-9 Specific gravity of urine by test strip 1.020 1.016- 1.022 Urine protein assay by test strip, semi-quantitative 2+ NEGATIVE Urine glucose detection by automated test strip NEGATIVE NEGATIVE Erythrocytes detection in urine sediment by light microscopy 4+ NEGATIVE Urine ketones detection by automated test strip NEGATIVE NEGATIVE Urine nitrite detection by test strip NEGATIVE NEGATIVE Urine total bilirubin detection by test strip NEGATIVE NEGATIVE Urine urobilinogen measurement by automated test strip (mass/volume) NORMAL NORMAL Urine leukocyte esterase detection by dipstick 1+ NEGATIVE Automated urine sediment erythrocyte count by microscopy (number/high power field) [HPF] NRG Automated urine sediment leukocyte count by microscopy (number/high power field ) [HPF] NRG Bacteria detection in urine sediment by light microscopy NEGATIVE NRG Squamous epithelial cells detection in urine sediment by light microscopy 0-2 NRG Crystals detection in urine sediment by light microscopy NONE NRG Casts detection in urine sediment by light microscopy NONE NRG Mucus detection in urine sediment by light microscopy NEGATIVE NRG Complete urinalysis with reflex to culture NO NRG Arterial blood gas measurement - 02/17/17 03:50 Blood pCO2 44 mm[Hg] 35-45 Blood pO2 76 mm[Hg] 79-93 Arterial blood bicarbonate measurement (moles/volume) 22 mmol/L 23-27 Arterial blood base excess by calculation -2.0 mmol/L - 2.5-2.5 Arterial blood oxygen saturation measurement 95 % 94-100 * Inhaled oxygen flow rate 7L NRG Arterial blood pH measurement with patient temperature correction 7.34 7.37-7.43 Arterial blood carbon dioxide, total measurement (moles/volume) 23.6 mmol/L 21.0-31.0 Body site RIGHT RADIAL NRG Assessment of wrist artery patency prior to arterial puncture YES- POS NRG Setting of ventilation mode NO NRG Measurement of body temperature 102.3 NRG Capillary blood glucose measurement by glucometer (mass/volume) - 02/17/17 04: 01 Capillary blood glucose measurement by glucometer (mass/volume) 132 mg/dL 70-110 Complete blood count (CBC) with automated white blood cell (WBC) differential - 02/17/17 04:20 Blood leukocytes automated count (number/volume) 16.8 10*3/uL 4.3-11.0 Blood erythrocytes automated count (number/volume) 3.89 10*6/uL 4.35-5.85 Venous blood hemoglobin measurement (mass/volume) 12.0 g/dL 13.3-17.7 Blood hematocrit (volume fraction) 36 % 40-54 Automated erythrocyte mean corpuscular volume 93 [foz_us] 80-99 Automated erythrocyte mean corpuscular hemoglobin (mass per erythrocyte) 31 pg 25-34 Automated erythrocyte mean corpuscular hemoglobin concentration measurement ( mass/volume) 33 g/dL 32-36 Automated erythrocyte distribution width ratio 14.0 % 10.0-14.5 Automated blood platelet count (count/volume) 238 10*3/uL 130-400 Automated blood platelet mean volume measurement 9.4 [foz_us] 7.4-10.4 Automated blood neutrophils/100 leukocytes 77 % 42-75 Automated blood lymphocytes/100 leukocytes 12 % 12-44 Blood monocytes/100 leukocytes 10 % 0-12 Automated blood eosinophils/100 leukocytes 0 % 0-10 Automated blood basophils/100 leukocytes 0 % 0-10 Blood neutrophils automated count (number/volume) 13.0 10*3 1.8-7.8 Blood lymphocytes automated count (number/volume) 2.1 10*3 1.0-4.0 Blood monocytes automated count (number/volume) 1.7 10*3 0.0-1.0 Automated eosinophil count 0.0 10*3/uL 0.0-0.3 Automated blood basophil count (count/volume) 0.0 10*3/uL 0.0-0.1 Blood lactic acid measurement (moles/volume) - 02/17/17 04:20 Blood lactic acid measurement (moles/volume) 0.96 mmol/L 0.50-2.00 Whole blood basic metabolic panel - 02/17/17 04:20 Serum or plasma sodium measurement (moles/volume) 142 mmol/L 135-145 Serum or plasma potassium measurement (moles/volume) 4.6 mmol/L 3.6-5.0 Serum or plasma chloride measurement (moles/volume) 111 mmol/L 98-107 Carbon dioxide 22 mmol/L 21-32 Serum or plasma anion gap determination (moles/volume) 9 mmol/L 5-14 Serum or plasma urea nitrogen measurement (mass/volume) 13 mg/dL 7-18 Serum or plasma creatinine measurement (mass/volume) 0.78 mg/dL 0.60-1.30 Serum or plasma urea nitrogen/creatinine mass ratio 17 NRG Serum or plasma creatinine measurement with calculation of estimated glomerular filtration rate > NRG Serum or plasma glucose measurement (mass/volume) 148 mg/dL 70-105 Serum or plasma calcium measurement (mass/volume) 8.0 mg/dL 8.5-10.1 Magnesium - 02/17/17 04:20 Magnesium 1.5 mg/dL 1.8-2.4 Serum or plasma aspartate aminotransferase measurement (enzymatic activity/ volume) - 02/17/17 04:20 Serum or plasma aspartate aminotransferase measurement (enzymatic activity/ volume) 9 U/L 5-34 Serum or plasma alanine aminotransferase measurement (enzymatic activity/volume ) - 02/17/17 04:20 Serum or plasma alanine aminotransferase measurement (enzymatic activity/volume ) 18 U/L 0-55 Serum or plasma albumin measurement (mass/volume) - 02/17/17 04:20 Serum or plasma albumin measurement (mass/volume) 3.1 g/dL 3.2-4.5 Blood manual differential performed detection - 02/17/17 04:20 Blood monocytes/100 leukocytes 6 % NRG Manual blood segmented neutrophils/100 leukocytes 81 % NRG Blood band neutrophils/100 leukocytes 3 % NRG Manual blood lymphocytes/100 leukocytes 10 % NRG Blood erythrocyte morphology finding identification NORMAL NRG Serum or plasma phosphate measurement (mass/volume) - 02/17/17 04:20 Serum or plasma phosphate measurement (mass/volume) 2.3 mg/dL 2.3-4.7 Serum or plasma lithium measurement (moles/volume) - 02/17/17 04:20 BNP level 1049.7 pg/mL <100.0 Capillary blood glucose measurement by glucometer (mass/volume) - 02/17/17 06: 04 Capillary blood glucose measurement by glucometer (mass/volume) 156 mg/dL 70-110 Capillary blood glucose measurement by glucometer (mass/volume) - 02/17/17 08: 27 Capillary blood glucose measurement by glucometer (mass/volume) 243 mg/dL 70-110 Arterial blood gas measurement - 02/17/17 09:50 Blood pCO2 41 mm[Hg] 35-45 Blood pO2 77 mm[Hg] 79-93 Arterial blood bicarbonate measurement (moles/volume) 23 mmol/L 23-27 Arterial blood base excess by calculation -1.2 mmol/L - 2.5-2.5 Arterial blood oxygen saturation measurement 96 % 94-100 * Inhaled oxygen flow rate 9 NRG Arterial blood pH measurement with patient temperature correction 7.37 7.37-7.43 Arterial blood carbon dioxide, total measurement (moles/volume) 24.2 mmol/L 21.0-31.0 Body site L RAD NRG Assessment of wrist artery patency prior to arterial puncture YES- POS NRG Setting of ventilation mode NO NRG Measurement of body temperature 101.2 NRG Capillary blood glucose measurement by glucometer (mass/volume) - 02/17/17 10: 37 Capillary blood glucose measurement by glucometer (mass/volume) 229 mg/dL 70-110 Capillary blood glucose measurement by glucometer (mass/volume) - 02/17/17 12: 29 Capillary blood glucose measurement by glucometer (mass/volume) 244 mg/dL 70-110 Whole blood basic metabolic panel - 02/17/17 16:05 Serum or plasma sodium measurement (moles/volume) 142 mmol/L 135-145 Serum or plasma potassium measurement (moles/volume) 4.0 mmol/L 3.6-5.0 Serum or plasma chloride measurement (moles/volume) 111 mmol/L 98-107 Carbon dioxide 25 mmol/L 21-32 Serum or plasma anion gap determination (moles/volume) 6 mmol/L 5-14 Serum or plasma urea nitrogen measurement (mass/volume) 11 mg/dL 7-18 Serum or plasma creatinine measurement (mass/volume) 0.74 mg/dL 0.60-1.30 Serum or plasma urea nitrogen/creatinine mass ratio 15 NRG Serum or plasma creatinine measurement with calculation of estimated glomerular filtration rate > NRG Serum or plasma glucose measurement (mass/volume) 130 mg/dL 70-105 Serum or plasma calcium measurement (mass/volume) 7.7 mg/dL 8.5-10.1 Capillary blood glucose measurement by glucometer (mass/volume) - 02/17/17 16: 09 Capillary blood glucose measurement by glucometer (mass/volume) 123 mg/dL 70-110 Capillary blood glucose measurement by glucometer (mass/volume) - 02/17/17 18: 31 Capillary blood glucose measurement by glucometer (mass/volume) 151 mg/dL 70-110 Capillary blood glucose measurement by glucometer (mass/volume) - 02/17/17 23: 57 Capillary blood glucose measurement by glucometer (mass/volume) 144 mg/dL 70-110 Complete blood count (CBC) with automated white blood cell (WBC) differential - 02/18/17 05:30 Blood leukocytes automated count (number/volume) 13.8 10*3/uL 4.3-11.0 Blood erythrocytes automated count (number/volume) 3.58 10*6/uL 4.35-5.85 Venous blood hemoglobin measurement (mass/volume) 11.0 g/dL 13.3-17.7 Blood hematocrit (volume fraction) 34 % 40-54 Automated erythrocyte mean corpuscular volume 94 [foz_us] 80-99 Automated erythrocyte mean corpuscular hemoglobin (mass per erythrocyte) 31 pg 25-34 Automated erythrocyte mean corpuscular hemoglobin concentration measurement ( mass/volume) 33 g/dL 32-36 Automated erythrocyte distribution width ratio 13.9 % 10.0-14.5 Automated blood platelet count (count/volume) 228 10*3/uL 130-400 Automated blood platelet mean volume measurement 9.6 [foz_us] 7.4-10.4 Automated blood neutrophils/100 leukocytes 71 % 42-75 Automated blood lymphocytes/100 leukocytes 17 % 12-44 Blood monocytes/100 leukocytes 11 % 0-12 Automated blood eosinophils/100 leukocytes 2 % 0-10 Automated blood basophils/100 leukocytes 0 % 0-10 Blood neutrophils automated count (number/volume) 9.7 10*3 1.8-7.8 Blood lymphocytes automated count (number/volume) 2.3 10*3 1.0-4.0 Blood monocytes automated count (number/volume) 1.5 10*3 0.0-1.0 Automated eosinophil count 0.3 10*3/uL 0.0-0.3 Automated blood basophil count (count/volume) 0.0 10*3/uL 0.0-0.1 Whole blood basic metabolic panel - 02/18/17 05:30 Serum or plasma sodium measurement (moles/volume) 144 mmol/L 135-145 Serum or plasma potassium measurement (moles/volume) 3.9 mmol/L 3.6-5.0 Serum or plasma chloride measurement (moles/volume) 111 mmol/L 98-107 Carbon dioxide 18 mmol/L 21-32 Serum or plasma anion gap determination (moles/volume) 15 mmol/L 5-14 Serum or plasma urea nitrogen measurement (mass/volume) 13 mg/dL 7-18 Serum or plasma creatinine measurement (mass/volume) 0.83 mg/dL 0.60-1.30 Serum or plasma urea nitrogen/creatinine mass ratio 16 NRG Serum or plasma creatinine measurement with calculation of estimated glomerular filtration rate > NRG Serum or plasma glucose measurement (mass/volume) 257 mg/dL 70-105 Serum or plasma calcium measurement (mass/volume) 7.9 mg/dL 8.5-10.1 Magnesium - 02/18/17 05:30 Magnesium 1.5 mg/dL 1.8-2.4 Vancomycin trough - 02/18/17 05:30 Vancomycin trough 17.0 ug/mL 10.0-20.0 Capillary blood glucose measurement by glucometer (mass/volume) - 02/18/17 11: 48 Capillary blood glucose measurement by glucometer (mass/volume) 247 mg/dL 70-110 Capillary blood glucose measurement by glucometer (mass/volume) - 02/18/17 17: 55 Capillary blood glucose measurement by glucometer (mass/volume) 293 mg/dL 70-110 Capillary blood glucose measurement by glucometer (mass/volume) - 02/19/17 00: 33 Capillary blood glucose measurement by glucometer (mass/volume) 214 mg/dL 70-110 Complete blood count (CBC) with automated white blood cell (WBC) differential - 02/19/17 05:15 Blood leukocytes automated count (number/volume) 12.1 10*3/uL 4.3-11.0 Blood erythrocytes automated count (number/volume) 3.25 10*6/uL 4.35-5.85 Venous blood hemoglobin measurement (mass/volume) 10.1 g/dL 13.3-17.7 Blood hematocrit (volume fraction) 30 % 40-54 Automated erythrocyte mean corpuscular volume 93 [foz_us] 80-99 Automated erythrocyte mean corpuscular hemoglobin (mass per erythrocyte) 31 pg 25-34 Automated erythrocyte mean corpuscular hemoglobin concentration measurement ( mass/volume) 33 g/dL 32-36 Automated erythrocyte distribution width ratio 13.3 % 10.0-14.5 Automated blood platelet count (count/volume) 240 10*3/uL 130-400 Automated blood platelet mean volume measurement 9.7 [foz_us] 7.4-10.4 Automated blood neutrophils/100 leukocytes 67 % 42-75 Automated blood lymphocytes/100 leukocytes 19 % 12-44 Blood monocytes/100 leukocytes 9 % 0-12 Automated blood eosinophils/100 leukocytes 5 % 0-10 Automated blood basophils/100 leukocytes 0 % 0-10 Blood neutrophils automated count (number/volume) 8.1 10*3 1.8-7.8 Blood lymphocytes automated count (number/volume) 2.3 10*3 1.0-4.0 Blood monocytes automated count (number/volume) 1.1 10*3 0.0-1.0 Automated eosinophil count 0.6 10*3/uL 0.0-0.3 Automated blood basophil count (count/volume) 0.0 10*3/uL 0.0-0.1 Whole blood basic metabolic panel - 02/19/17 05:15 Serum or plasma sodium measurement (moles/volume) 147 mmol/L 135-145 Serum or plasma potassium measurement (moles/volume) 3.5 mmol/L 3.6-5.0 Serum or plasma chloride measurement (moles/volume) 112 mmol/L 98-107 Carbon dioxide 22 mmol/L 21-32 Serum or plasma anion gap determination (moles/volume) 13 mmol/L 5-14 Serum or plasma urea nitrogen measurement (mass/volume) 15 mg/dL 7-18 Serum or plasma creatinine measurement (mass/volume) 0.79 mg/dL 0.60-1.30 Serum or plasma urea nitrogen/creatinine mass ratio 19 NRG Serum or plasma creatinine measurement with calculation of estimated glomerular filtration rate > NRG Serum or plasma glucose measurement (mass/volume) 178 mg/dL 70-105 Serum or plasma calcium measurement (mass/volume) 8.3 mg/dL 8.5-10.1 Magnesium - 02/19/17 05:15 Magnesium 1.6 mg/dL 1.8-2.4 Capillary blood glucose measurement by glucometer (mass/volume) - 02/19/17 13: 07 Capillary blood glucose measurement by glucometer (mass/volume) 343 mg/dL 70-110 Capillary blood glucose measurement by glucometer (mass/volume) - 02/19/17 18: 00 Capillary blood glucose measurement by glucometer (mass/volume) 178 mg/dL 70-110 Capillary blood glucose measurement by glucometer (mass/volume) - 02/19/17 20: 26 Capillary blood glucose measurement by glucometer (mass/volume) 333 mg/dL 70-110 Capillary blood glucose measurement by glucometer (mass/volume) - 02/20/17 00: 25 Capillary blood glucose measurement by glucometer (mass/volume) 273 mg/dL 70-110 Complete blood count (CBC) with automated white blood cell (WBC) differential - 02/20/17 04:30 Blood leukocytes automated count (number/volume) 8.3 10*3/uL 4.3-11.0 Blood erythrocytes automated count (number/volume) 2.87 10*6/uL 4.35-5.85 Venous blood hemoglobin measurement (mass/volume) 8.7 g/dL 13.3-17.7 Blood hematocrit (volume fraction) 27 % 40-54 Automated erythrocyte mean corpuscular volume 92 [foz_us] 80-99 Automated erythrocyte mean corpuscular hemoglobin (mass per erythrocyte) 30 pg 25-34 Automated erythrocyte mean corpuscular hemoglobin concentration measurement ( mass/volume) 33 g/dL 32-36 Automated erythrocyte distribution width ratio 13.1 % 10.0-14.5 Automated blood platelet count (count/volume) 265 10*3/uL 130-400 Automated blood platelet mean volume measurement 9.6 [foz_us] 7.4-10.4 Automated blood neutrophils/100 leukocytes 60 % 42-75 Automated blood lymphocytes/100 leukocytes 19 % 12-44 Blood monocytes/100 leukocytes 11 % 0-12 Automated blood eosinophils/100 leukocytes 10 % 0-10 Automated blood basophils/100 leukocytes 0 % 0-10 Blood neutrophils automated count (number/volume) 5.0 10*3 1.8-7.8 Blood lymphocytes automated count (number/volume) 1.6 10*3 1.0-4.0 Blood monocytes automated count (number/volume) 0.9 10*3 0.0-1.0 Automated eosinophil count 0.8 10*3/uL 0.0-0.3 Automated blood basophil count (count/volume) 0.0 10*3/uL 0.0-0.1 Whole blood basic metabolic panel - 02/20/17 04:30 Serum or plasma sodium measurement (moles/volume) 143 mmol/L 135-145 Serum or plasma potassium measurement (moles/volume) 3.1 mmol/L 3.6-5.0 Serum or plasma chloride measurement (moles/volume) 110 mmol/L 98-107 Carbon dioxide 25 mmol/L 21-32 Serum or plasma anion gap determination (moles/volume) 8 mmol/L 5-14 Serum or plasma urea nitrogen measurement (mass/volume) 11 mg/dL 7-18 Serum or plasma creatinine measurement (mass/volume) 0.67 mg/dL 0.60-1.30 Serum or plasma urea nitrogen/creatinine mass ratio 16 NRG Serum or plasma creatinine measurement with calculation of estimated glomerular filtration rate > NRG Serum or plasma glucose measurement (mass/volume) 158 mg/dL 70-105 Serum or plasma calcium measurement (mass/volume) 7.3 mg/dL 8.5-10.1 Magnesium - 02/20/17 04:30 Magnesium 1.5 mg/dL 1.8-2.4 Capillary blood glucose measurement by glucometer (mass/volume) - 02/20/17 12: 33 Capillary blood glucose measurement by glucometer (mass/volume) 213 mg/dL 70-110 Capillary blood glucose measurement by glucometer (mass/volume) - 02/20/17 15: 56 Capillary blood glucose measurement by glucometer (mass/volume) 106 mg/dL 70-110 Capillary blood glucose measurement by glucometer (mass/volume) - 02/20/17 20: 27 Capillary blood glucose measurement by glucometer (mass/volume) 172 mg/dL 70-110 Capillary blood glucose measurement by glucometer (mass/volume) - 02/21/17 00: 53 Capillary blood glucose measurement by glucometer (mass/volume) 136 mg/dL 70-110 Complete blood count (CBC) with automated white blood cell (WBC) differential - 02/21/17 04:10 Blood leukocytes automated count (number/volume) 7.6 10*3/uL 4.3-11.0 Blood erythrocytes automated count (number/volume) 3.03 10*6/uL 4.35-5.85 Venous blood hemoglobin measurement (mass/volume) 9.3 g/dL 13.3-17.7 Blood hematocrit (volume fraction) 28 % 40-54 Automated erythrocyte mean corpuscular volume 91 [foz_us] 80-99 Automated erythrocyte mean corpuscular hemoglobin (mass per erythrocyte) 31 pg 25-34 Automated erythrocyte mean corpuscular hemoglobin concentration measurement ( mass/volume) 34 g/dL 32-36 Automated erythrocyte distribution width ratio 13.0 % 10.0-14.5 Automated blood platelet count (count/volume) 305 10*3/uL 130-400 Automated blood platelet mean volume measurement 9.0 [foz_us] 7.4-10.4 Automated blood neutrophils/100 leukocytes 62 % 42-75 Automated blood lymphocytes/100 leukocytes 18 % 12-44 Blood monocytes/100 leukocytes 12 % 0-12 Automated blood eosinophils/100 leukocytes 8 % 0-10 Automated blood basophils/100 leukocytes 0 % 0-10 Blood neutrophils automated count (number/volume) 4.7 10*3 1.8-7.8 Blood lymphocytes automated count (number/volume) 1.4 10*3 1.0-4.0 Blood monocytes automated count (number/volume) 0.9 10*3 0.0-1.0 Automated eosinophil count 0.6 10*3/uL 0.0-0.3 Automated blood basophil count (count/volume) 0.0 10*3/uL 0.0-0.1 Whole blood basic metabolic panel - 02/21/17 04:10 Serum or plasma sodium measurement (moles/volume) 141 mmol/L 135-145 Serum or plasma potassium measurement (moles/volume) 3.2 mmol/L 3.6-5.0 Serum or plasma chloride measurement (moles/volume) 108 mmol/L 98-107 Carbon dioxide 24 mmol/L 21-32 Serum or plasma anion gap determination (moles/volume) 9 mmol/L 5-14 Serum or plasma urea nitrogen measurement (mass/volume) 6 mg/dL 7-18 Serum or plasma creatinine measurement (mass/volume) 0.58 mg/dL 0.60-1.30 Serum or plasma urea nitrogen/creatinine mass ratio 10 NRG Serum or plasma creatinine measurement with calculation of estimated glomerular filtration rate > NRG Serum or plasma glucose measurement (mass/volume) 71 mg/dL 70-105 Serum or plasma calcium measurement (mass/volume) 7.5 mg/dL 8.5-10.1 Magnesium - 02/21/17 04:10 Magnesium 1.3 mg/dL 1.8-2.4 Capillary blood glucose measurement by glucometer (mass/volume) - 02/21/17 10: 55 Capillary blood glucose measurement by glucometer (mass/volume) 201 mg/dL 70-110 Capillary blood glucose measurement by glucometer (mass/volume) - 02/21/17 16: 35 Capillary blood glucose measurement by glucometer (mass/volume) 145 mg/dL 70-110 Capillary blood glucose measurement by glucometer (mass/volume) - 02/21/17 21: 30 Capillary blood glucose measurement by glucometer (mass/volume) 273 mg/dL 70-110 Capillary blood glucose measurement by glucometer (mass/volume) - 02/22/17 05: 16 Capillary blood glucose measurement by glucometer (mass/volume) 111 mg/dL 70-110 Complete blood count (CBC) with automated white blood cell (WBC) differential - 02/22/17 05:18 Blood leukocytes automated count (number/volume) 8.3 10*3/uL 4.3-11.0 Blood erythrocytes automated count (number/volume) 3.51 10*6/uL 4.35-5.85 Venous blood hemoglobin measurement (mass/volume) 10.6 g/dL 13.3-17.7 Blood hematocrit (volume fraction) 32 % 40-54 Automated erythrocyte mean corpuscular volume 90 [foz_us] 80-99 Automated erythrocyte mean corpuscular hemoglobin (mass per erythrocyte) 30 pg 25-34 Automated erythrocyte mean corpuscular hemoglobin concentration measurement ( mass/volume) 34 g/dL 32-36 Automated erythrocyte distribution width ratio 13.0 % 10.0-14.5 Automated blood platelet count (count/volume) 379 10*3/uL 130-400 Automated blood platelet mean volume measurement 9.3 [foz_us] 7.4-10.4 Automated blood neutrophils/100 leukocytes 62 % 42-75 Automated blood lymphocytes/100 leukocytes 23 % 12-44 Blood monocytes/100 leukocytes 10 % 0-12 Automated blood eosinophils/100 leukocytes 5 % 0-10 Automated blood basophils/100 leukocytes 0 % 0-10 Blood neutrophils automated count (number/volume) 5.1 10*3 1.8-7.8 Blood lymphocytes automated count (number/volume) 1.9 10*3 1.0-4.0 Blood monocytes automated count (number/volume) 0.8 10*3 0.0-1.0 Automated eosinophil count 0.4 10*3/uL 0.0-0.3 Automated blood basophil count (count/volume) 0.0 10*3/uL 0.0-0.1 Whole blood basic metabolic panel - 02/22/17 05:18 Serum or plasma sodium measurement (moles/volume) 141 mmol/L 135-145 Serum or plasma potassium measurement (moles/volume) 3.7 mmol/L 3.6-5.0 Serum or plasma chloride measurement (moles/volume) 106 mmol/L 98-107 Carbon dioxide 26 mmol/L 21-32 Serum or plasma anion gap determination (moles/volume) 9 mmol/L 5-14 Serum or plasma urea nitrogen measurement (mass/volume) 5 mg/dL 7-18 Serum or plasma creatinine measurement (mass/volume) 0.64 mg/dL 0.60-1.30 Serum or plasma urea nitrogen/creatinine mass ratio 8 NRG Serum or plasma creatinine measurement with calculation of estimated glomerular filtration rate > NRG Serum or plasma glucose measurement (mass/volume) 120 mg/dL 70-105 Serum or plasma calcium measurement (mass/volume) 7.9 mg/dL 8.5-10.1 Magnesium - 02/22/17 05:18 Magnesium 1.4 mg/dL 1.8-2.4 Capillary blood glucose measurement by glucometer (mass/volume) - 02/22/17 11: 33 Capillary blood glucose measurement by glucometer (mass/volume) 228 mg/dL 70-110 Encounters ACCT No. Visit Date/Time Discharge Status Pt. Type Provider Facility Loc./Unit Complaint [id number] 02/16/2017 12:17:00 02/22/2017 15:50:00 DIS Inpatient KASI DAVALOS DO [facility] 4TH ACUTE PSYCHOSIS [id number] 07/07/2016 13:59:00 07/07/2016 19:02:00 DIS Emergency VENESSA PAULSON APRN [facility] ER FALL/FACIAL INJURY [id number] 10/15/2015 09:55:00 10/15/2015 23:59:59 CLS Preadmit OSMANY DEMPSEY MD [facility] REHAB [id number] 10/22/2014 22:59:00 10/23/2014 18:23:00 DIS Inpatient SUDEEP LINTON, SILVESTRE Martinez Via [address]
[2017-03-02 01:28] LABS: BILIRUBIN,URINE NEGATIVE (NEGATIVE); CLARITY,URINE CLEAR; COLOR,URINE YELLOW; GLUCOSE, URINE (UA) 1+ (NEGATIVE); KETONES,URINE NEGATIVE (NEGATIVE); LEUKOCYTE ESTERASE ,URINE NEGATIVE (NEGATIVE); NITRITE,URINE NEGATIVE (NEGATIVE); PH,URINE 6 (5-9); PROTEIN,URINE NEGATIVE (NEGATIVE); UROBILINOGEN,URINE NORMAL (NORMAL)
[2017-03-02 01:40] LABS: BACTERIA,URINE NEGATIVE /HPF; SQUAMOUS EPITHELIAL CELL,UR RARE /HPF
--- NOTE | 2017-03-02 01:41 | ED General ---
General Chief Complaint: Altered Mental Status Stated Complaint: UNRESPONSIVE Nursing Triage Note: PT TO ED 3 PER EMS FOR C/O HYPOGLYCEMIA, ALTERED MENTAL STATUS. PER EMS, CALLED TO PTS ADDRESS FOR UNRESPONSIVE MALE, FOUND PT NON VERBAL, COLD ET DIAPHORETIC, ASSESSED FSBS ET FOUND IT TO BE "TO LOW TO READ". EMS REPORTS THEY STARTED AN IO AFTER MULTIPLE ATTEMPTS TO GAIN IV ACCESS ET ADMINISTERED 1AMP OF D50. PT'S BS INCREASED ET PT WOULD WIMPER BUT WOULD NOT RESPOND VERBALLY. PT PRESENTLY COOL, CLOTHING DAMP, PT CRYING ET RESTING ON HIS RT SIDE. PT UNRESPONSIVE TO VERBAL STIMULI, CRYING OCCASIONALLY AT THIS TIME. Nursing Sepsis Screen: No Definite Risk Source of Information: Patient Exam Limitations: Physical Impairments History of Present Illness Time Seen by Provider: 00:59 Initial Comments Here by EMS with report of severe hypoglycemia. Apparently he was found on the floor and EMS was called. They noted that his blood sugar was low and patient was unresponsive. They did give 1 amp of D50 after finally obtaining IV access via intraosseous needle. Patient then woke up a little but was still very confused. Patient is diaphoretic and cold. Patient is not answering questions well. History limited by clinical condition. Timing/Duration: 1 Hour Severity: Severe Associated Systoms: Weakness Allergies and Home Medications Allergies Coded Allergies: metformin (Verified Allergy, Unknown, 10/22/14) Home Medications Acetaminophen 500 Mg Tablet, 1,000 MG PO Q8H PRN for MILD PAIN/FEVER, (Reported) Acetaminophen with Codeine 1 Each Tablet, 0.5 TAB PO Q6H PRN for PAIN-MODERATE, #28 Prescribed by: SUSHIL NEGRO on 02/22/17 0947 Amlodipine Besylate 10 Mg Tablet, 10 MG PO DAILY, #30 Prescribed by: SUSHIL NEGRO on 02/22/17 0947 Aspirin 81 Mg Tablet.dr, 81 MG PO DAILY, (Reported) Atorvastatin Calcium 80 Mg Tablet, 80 MG PO HS, (Reported) Carbidopa/Levodopa 1 Each Tablet.er, 1 TAB PO TID, (Reported) Diclofenac Sodium 100 Gm Gel..gram., 2 GM TP QID PRN for MUSCLE PAIN, (Reported) Fluticasone Propionate 16 Gm [place].susp, 2 SPRAYS NS DAILY PRN for CONGESTION, ( Reported) Insulin Glargine,Hum.rec.anlog 100 Unit/1 Ml Insuln.pen, 50 UNIT SQ BID, ( Reported) L. Acidophilus/Bulgaricus 1 Each Tablet, 1 TAB.CHEW PO AC, #30 Prescribed by: SUSHIL NEGRO on 02/22/17 0947 Lisinopril 40 Mg Tablet, 40 MG PO BID, (Reported) Primidone 50 Mg Tablet, 50 MG PO BID, (Reported) LAST FILLED FROM [facility] 09-18-16 #60 Risperidone 1 Mg Tablet, 1.5 MG PO BID, #45 Prescribed by: SUSHIL NEGRO on 02/22/17 0947 Tamsulosin HCl 0.4 Mg Cap, 0.4 MG PO 1730, (Reported) Venlafaxine HCl 150 Mg Tab.er.24, 150 MG PO DAILY, (Reported) Constitutional: see HPI, chills, diaphoresis, weakness Other Unable to complete review of systems due to altered mental status Past Sufsosx-Eovqks-Xygoyn Hx Patient Social History Alcohol Use: Denies Use Recreational Drug Use: Yes (Not since 1990) Drug of Choice: meth Smoking Status: Unknown if Ever Smoked Recent Foreign Travel: No Contact w/Someone Who Travel: No Recent Infectious Disease Expo: No Recent Hopitalizations: No Physical Abuse: No Sexual Abuse: No Mistreated: No Fear: No Seasonal Allergies Seasonal Allergies: Yes Surgeries History of Surgeries: Yes (electroshock therapy, colonoscopy) Respiratory History of Respiratory Disorde: No Cardiovascular History of Cardiac Disorders: Yes Cardiac Disorders: High Cholesterol, Hypertension Neurological History of Neurological Disord: Yes Neurological Disorders: Parkinson's Disease, Stroke Genitourinary History of Genitourinary Disor: Yes Genitourinary Disorders: Prostate Problems, Bladder Infection, UTI-Chronic Gastrointestinal History of Gastrointestinal Di: Yes Gastrointestinal Disorders: Polyps, Irritable Bowel Musculoskeletal History of Musculoskeletal Dis: Yes Musculoskeletal Disorders: Arthritis, Chronic Back Pain Endocrine History of Endocrine Disorders: Yes Endocrine Disorders: Diabetes, Insulin dep HEENT History of HEENT Disorders: No Cancer History of Cancer: No Psychosocial History of Psychiatric Problem: Yes Behavioral Health Disorders: Anxiety, Suicide Attempts, Depression Suicide Risk Score: 1 Integumentary History of Skin or Integumenta: No Blood Transfusions History of Blood Disorders: No Reviewed Nursing Assessment Reviewed/Agree w Nursing PMH: Yes Family Medical History Family Medial History: Alcoholism 19 FATHER Bipass surgery G8 BROTHER Brain cancer 19 MOTHER Diabetes mellitus 19 FATHER Respiratory disorder G8 BROTHER Physical Exam Vital Signs Vital Sign - Last 12Hours 03/02/17 00:57 Temp 92.8 Pulse 84 Resp 20 B/P (MAP) 146/77 (100) Pulse Ox 93 O2 Delivery Room Air Capillary Refill : Less Than 3 Seconds General Appearance: WD/WN, Mild Distress HEENT: PERRL/EOMI, Pharynx Normal Neck: Non Tender, Supple Respiratory: Lungs Clear, Normal Breath Sounds Cardiovascular: Regular Rate, Rhythm, No Murmur Gastrointestinal: Non Tender, Soft Back: Normal Inspection, No CVA Tenderness, No Vertebral Tenderness Extremity: Normal Range of Motion, Non Tender Neurologic/Psychiatric: Disoriented x3, Other (moans and follows some simple commands but does not answer questions well at this point.) Skin: Cool, Diaphoresis Focused Exam Evaluation Lactate Level Laboratory Tests 03/02/17 01:30: Lactic Acid Level 1.87 Lactic Acid Level Laboratory Tests Test 03/02/17 01:30 Lactic Acid Level 1.87 MMOL/L (0.50-2.00) Progress/Results/Core Measures Suspected Sepsis Recent Fever Within 48 Hours: No Infection Criteria Present: None New/Unexplained Altered Menta: No Sepsis Screen: No Definite Risk Sepsis Diagnosis: SIRS Temperature:92.8 Pulse: 84 Respiratory Rate: 20 Laboratory Tests 03/02/17 01:30: White Blood Count 14.0H Blood Pressure 146 /77 Mean: 100 Laboratory Tests 03/02/17 01:30: Lactic Acid Level 1.87 Laboratory Tests 03/02/17 01:30: Creatinine 0.91, INR Comment 1.0, Platelet Count 560H, Total Bilirubin 0.3 Results/Orders Lab Results Laboratory Tests Test 03/02/17 01:02 03/02/17 01:24 03/02/17 01:30 03/02/17 03:51 Range/Units Glucometer 83 40 *L 70-110 MG/DL Urine Color YELLOW Urine Clarity CLEAR Urine pH 6 5-9 Urine Specific Reading 1.010 L 1.016-1.022 Urine Protein NEGATIVE NEGATIVE Urine Glucose (UA) 1+ H NEGATIVE Urine Ketones NEGATIVE NEGATIVE Urine Nitrite NEGATIVE NEGATIVE Urine Bilirubin NEGATIVE NEGATIVE Urine Urobilinogen NORMAL NORMAL MG/DL Urine Leukocyte Esterase NEGATIVE NEGATIVE Urine RBC (Auto) NEGATIVE NEGATIVE Urine RBC NONE /HPF Urine WBC NONE /HPF Urine Squamous Epithelial Cells RARE /HPF Urine Crystals NONE /LPF Urine Bacteria NEGATIVE /HPF Urine Casts NONE /LPF Urine Mucus NEGATIVE /LPF Urine Culture Indicated NO Urine Opiates Screen POSITIVE H NEGATIVE Urine Oxycodone Screen NEGATIVE NEGATIVE Urine Methadone Screen NEGATIVE NEGATIVE Urine Propoxyphene Screen NEGATIVE NEGATIVE Urine Barbiturates Screen NEGATIVE NEGATIVE Ur Tricyclic Antidepressants Screen NEGATIVE NEGATIVE Urine Phencyclidine Screen NEGATIVE NEGATIVE Urine Amphetamines Screen NEGATIVE NEGATIVE Urine Methamphetamines Screen NEGATIVE NEGATIVE Urine Benzodiazepines Screen NEGATIVE NEGATIVE Urine Cocaine Screen NEGATIVE NEGATIVE Urine Cannabinoids Screen NEGATIVE NEGATIVE White Blood Count 14.0 H 4.3-11.0 10^3/uL Red Blood Count 3.97 L 4.35-5.85 10^6/uL Hemoglobin 12.2 L 13.3-17.7 G/DL Hematocrit 37 L 40-54 % Mean Corpuscular Volume 92 80-99 FL Mean Corpuscular Hemoglobin 31 25-34 PG Mean Corpuscular Hemoglobin Concent 33 32-36 G/DL Red Cell Distribution Width 14.1 10.0-14.5 % Platelet Count 560 H 130-400 10^3/uL Mean Platelet Volume 8.8 7.4-10.4 FL Neutrophils (%) (Auto) 59 42-75 % Lymphocytes (%) (Auto) 30 12-44 % Monocytes (%) (Auto) 10 0-12 % Eosinophils (%) (Auto) 1 0-10 % Basophils (%) (Auto) 0 0-10 % Neutrophils # (Auto) 8.3 H 1.8-7.8 X 10^3 Lymphocytes # (Auto) 4.2 H 1.0-4.0 X 10^3 Monocytes # (Auto) 1.4 H 0.0-1.0 X 10^3 Eosinophils # (Auto) 0.1 0.0-0.3 10^3/uL Basophils # (Auto) 0.0 0.0-0.1 10^3/uL Neutrophils % (Manual) 62 % Lymphocytes % (Manual) 27 % Monocytes % (Manual) 7 % Eosinophils % (Manual) 0 % Basophils % (Manual) 0 % Band Neutrophils 0 % Reactive Lymphocytes 4 % Anisocytosis SLIGHT Prothrombin Time 13.2 12.2-14.7 SEC INR Comment 1.0 0.8-1.4 Activated Partial Thromboplast Time 28 24-35 SEC Sodium Level 143 135-145 MMOL/L Potassium Level 3.8 3.6-5.0 MMOL/L Chloride Level 108 H 98-107 MMOL/L Carbon Dioxide Level 21 21-32 MMOL/L Anion Gap 14 5-14 MMOL/L Blood Urea Nitrogen 13 7-18 MG/DL Creatinine 0.91 0.60-1.30 MG/DL Estimat Glomerular Filtration Rate > 60 BUN/Creatinine Ratio 14 Glucose Level 95 70-105 MG/DL Lactic Acid Level 1.87 0.50-2.00 MMOL/L Calcium Level 8.5 8.5-10.1 MG/DL Total Bilirubin 0.3 0.1-1.0 MG/DL Aspartate Amino Transf (AST/SGOT) 20 5-34 U/L Alanine Aminotransferase (ALT/SGPT) 25 0-55 U/L Alkaline Phosphatase 85 40-136 U/L Total Protein 7.0 6.4-8.2 GM/DL Albumin 3.7 3.2-4.5 GM/DL Salicylates Level < 5.0 L 5.0-20.0 MG/DL Acetaminophen Level < 10 L 10-30 UG/ML Serum Alcohol < 10 <10 MG/DL Micro Results Microbiology 03/02/17 Influenza Types A,B Antigen (YANNA) - Final, Complete My Orders Orders - CALEB WALKER MD D50w (Emergency) Syringe (Dextrose 50% 5 (03/02/17 01:15) Cbc With Automated Diff (03/02/17 01:03) Comprehensive Metabolic Panel (03/02/17 01:03) Lactic Acid Analyzer (03/02/17 01:03) Blood Culture (03/02/17 01:03) Sputum Culture (03/02/17 01:03) Ua Culture If Indicated (03/02/17 01:03) Protime With Inr (03/02/17 01:03) Partial Thromboplastin Time (03/02/17 01:03) Chest 1 View, Ap/Pa Only (03/02/17 01:03) O2 (03/02/17 01:03) Saline Lock/Iv-Start (03/02/17 01:03) Vital Signs Adult Sepsis Patie Q1H (03/02/17 01:03) Remove Rings In Anticipation O (03/02/17 01:03) Influenza A And B Antigens (03/02/17 01:03) D50w (Emergency) Syringe (Dextrose 50% 5 (03/02/17 01:02) Ct Head Wo (03/02/17 01:36) Manual Differential (03/02/17 01:30) Drug Screen Stat (Urine) (03/02/17 02:02) Acetaminophen (03/02/17 02:08) Alcohol (03/02/17 02:08) Salicylate (03/02/17 02:08) D50w (Emergency) Syringe (Dextrose 50% 5 (03/02/17 04:00) D50w (Emergency) Syringe (Dextrose 50% 5 (03/02/17 03:50) Medications Given in ED Current Medications Medications Dose Ordered Sig/Oly Route Start Time Stop Time Status Last Admin Dose Admin Dextrose 50 ml ONCE ONCE IV 03/02/17 01:15 03/02/17 01:16 DC 03/02/17 01:06 50 ML Dextrose 50 ml ONCE ONCE IV 03/02/17 04:00 03/02/17 04:01 03/02/17 03:50 50 ML Vital Signs/I&O Vital Sign - Last 12Hours 03/02/17 00:57 Temp 92.8 Pulse 84 Resp 20 B/P (MAP) 146/77 (100) Pulse Ox 93 O2 Delivery Room Air Capillary Refill : Less Than 3 Seconds Blood Pressure Mean: 100 Progress Note : Progress Note Seen and evaluated. IV, labs, UA, chest x-ray, normal saline 1 L bolus that was initiated by EMS will be completed. Repeat blood sugar via fingerstick at 89. Repeat D50 [address] head ordered due to altered mental status. Influenza screen ordered. Monitor patient. 0250: Patient doing much better. He is able to communicate well. States that his brother lives next door to home and can get him home if needed. CT is negative. He is unsure what happened tonight although he may have taken his insulin without eating and this may have caused the low blood sugar. We will attempt a by mouth challenge and if he remains improved, consider discharge home. Monitor patient. 0355: Patient's blood sugar now 40. He is eating a little bit but very confused. D50 1 amp IV given. This is his third amp of D50 including the one from EMS. Patient is likely not taking his medications right. I did discuss the case with Dr. Oscar and she accepts patient for admission, observation status. We will initiate D10 and get Accu-Chek every 2 hours 4. Patient agrees with plan. Diagnostic Imaging Diagonstic Imaging: Xray Plain Films/CT/US/NM/MRI: chest Comments Increased vascular markings consistent with pulmonary congestion. No infiltrate. Reviewed: Reviewed by Me Diagonstic Imaging: CT Plain Films/CT/US/NM/MRI: head Comments No acute findings. Chronic senescent white matter changes and age-related cerebral atrophy. Reviewed: Reviewed Night Richy Study, Reviewed by Me Departure Communication (Admissions) Time/Spoke to Admitting Phy: 03:55 Impression Impression: Primary Impression: Hypoglycemia associated with diabetes Disposition: ADMITTED INPATIENT Condition: Stable Admissions Decision to Admit Reason: Admit from ER (General) Decision to Admit/Date: Mar 02, 2017 Time/Decision to Admit Time: 03:55 Departure-Patient Inst. Referrals: NO,LOCAL PHYSICIAN (PCP/Family) Primary Care Physician CALEB WALKER MD Mar 02, 2017 01:41
[2017-03-02 01:45] LABS: BASOPHILS % (AUTO) 0 % (0-10); EOSINOPHILS # (AUTO) 0.1 10^3/uL (0.0-0.3); EOSINOPHILS % (AUTO) 1 % (0-10); HEMATOCRIT 37 % (40-54); HEMOGLOBIN 12.2 G/DL (13.3-17.7); LYMPHOCYTES # (AUTO) 4.2 X 10^3 (1.0-4.0); LYMPHOCYTES % (AUTO) 30 % (12-44); MEAN CORPUSCULAR HEMOGLOBIN 31 PG (25-34); MEAN CORPUSCULAR HGB CONC 33 G/DL (32-36); MEAN CORPUSCULAR VOLUME 92 FL (80-99); MEAN PLATELET VOLUME 8.8 FL (7.4-10.4); MONOCYTES # (AUTO) 1.4 X 10^3 (0.0-1.0); MONOCYTES % (AUTO) 10 % (0-12); NEUTROPHILS # (AUTO) 8.3 X 10^3 (1.8-7.8); NEUTROPHILS % (AUTO) 59 % (42-75); PLATELET COUNT 560 10^3/uL (130-400); RED BLOOD COUNT 3.97 10^6/uL (4.35-5.85); RED CELL DISTRIBUTION WIDTH 14.1 % (10.0-14.5)
[2017-03-02 01:54] LABS: PROTHROMBIN TIME PATIENT 13.2 SEC (12.2-14.7)
[2017-03-02 02:05] LABS: ALANINE AMINOTRANSFERASE 25 U/L (0-55); ALBUMIN 3.7 GM/DL (3.2-4.5); ALKALINE PHOSPHATASE 85 U/L (40-136); BILIRUBIN,TOTAL 0.3 MG/DL (0.1-1.0); BUN/CREATININE RATIO 14; CALCIUM 8.5 MG/DL (8.5-10.1); CARBON DIOXIDE 21 MMOL/L (21-32); CHLORIDE 108 MMOL/L (98-107); CREATININE SERUM 0.91 MG/DL (0.60-1.30); GFR ESTIMATED > 60; GLUCOSE 95 MG/DL (70-105); POTASSIUM 3.8 MMOL/L (3.6-5.0); SODIUM 143 MMOL/L (135-145)
[2017-03-02 02:11] LABS: ANISOCYTOSIS SLIGHT; BAND NEUTROPHILS 0 %; BASOPHILS % (MANUAL) 0 %; EOSINOPHILS % (MANUAL) 0 %; LYMPHOCYTES % (MANUAL) 27 %; MONOCYTES % (MANUAL) 7 %; NEUTROPHILS % (MANUAL) 62 %; REACTIVE LYMPHOCYTES 4 %
[2017-03-02 02:18] LABS: AMPHETAMINE SCREEN, URINE NEGATIVE (NEGATIVE); BARBITURATE SCREEN URINE NEGATIVE (NEGATIVE); BENZODIAZEPINES SCREEN URINE NEGATIVE (NEGATIVE); CANNABINOID SCREEN, URINE NEGATIVE (NEGATIVE); COCAINE SCREEN URINE NEGATIVE (NEGATIVE); METHADONE STAT NEGATIVE (NEGATIVE); METHAMPHETAMINE SCREEN URINE S NEGATIVE (NEGATIVE); OPIATE SCREEN URINE POSITIVE (NEGATIVE); OXYCODONE STAT NEGATIVE (NEGATIVE); PROPOXYPHENE STAT NEGATIVE (NEGATIVE); TRICYCLIC ANTIDEPRESSANTS SCRE NEGATIVE (NEGATIVE)
[2017-03-02 02:35] LABS: SALICYLATE < 5.0 MG/DL (5.0-20.0)
[2017-03-02 02:36] LABS: ACETAMINOPHEN < 10 UG/ML (10-30)
[2017-03-02] MEDS ORDERED: DEXTROSE 10% IV SOLUTION 1,000 ML IV ONE (04:58)
[2017-03-02 05:00] VITALS: BP 174/78
[2017-03-02] MEDS ORDERED: inSUlin (REGULAR) HUMAN 1 UNIT/0.01 ML (CHARGE PER UNIT) SC SCH (06:53)
[2017-03-02] MEDS ORDERED: ONDANSETRON 4 MG/2 ML (SDV) Z0FRAN IV PRN (07:00)
[2017-03-02] MEDS ORDERED: DEXTROSE 10% IV SOLUTION 1,000 ML IV SCH (07:00)
--- NOTE | 2017-03-02 07:58 | Diagnostic Imaging Report ---
INDICATION: Altered mental status. COMPARISON: 03/02/2017 FINDINGS: Single frontal radiographic view of the chest was obtained and demonstrates diffuse prominence of the interstitium. Cardiac silhouette and pulmonary vasculature are within normal limits. There is no focal alveolar consolidation, large effusion, nor pneumothorax. Bony structures show no gross acute abnormalities. IMPRESSION: 1. Diffuse interstitial edema versus pneumonia. Dictated by: Dictated on workstation # [id number]
--- NOTE | 2017-03-02 07:59 | Diagnostic Imaging Report ---
INDICATION: Altered mental status TECHNIQUE: Routine non contrast-enhanced axial images were obtained from the skull base to the vertex. COMPARISON: 02/16/2017 FINDINGS: The ventricles and cortical sulci are diffusely prominent, compatible with age-related volume loss. There are confluent areas of abnormal, low attenuation in the periventricular white matter. This is consistent with chronic small vessel ischemic changes. There is no midline shift or mass-effect. No acute intra-axial hemorrhage is seen. There are no abnormal areas of increased or decreased density to suggest acute hemorrhage or edema. No extra-axial masses or collections are present. The bony calvarium is intact. The visualized paranasal sinuses show minimal mucosal thickening. The mastoid air cells are clear. IMPRESSION: 1. No acute intracranial abnormality. No CT evidence of mass, acute infarct or intracranial hemorrhage. 2. Chronic small vessel ischemic changes in the deep white matter. Dictated by: Dictated on workstation # [id number]
[2017-03-02 08:00] VITALS: BP 187/83
--- NOTE | 2017-03-02 10:26 | Physical Therapy Progress Note ---
Therapy Progress Note Patient adamantly declined stating he is tired and just returned to bed. PT attempted to educate patient on importance of increasing activity to improve LOF , however, patient continued to decline. Will attempt later today. 1 ref ANGELIKA SARMIENTO PT Mar 02, 2017 10:26
--- NOTE | 2017-03-02 11:07 | Short Stay Summary-Hospitalist ---
HPI History of Present Illness: HPI/Chief Complaint CC: Hypoglycemia HPI: This is a 76-year-old white male known to me from prior senior behavioral unit admission at [facility] a year and a half ago in addition most recently a hospitalization on the hospitalist service to [facility] due to severe hallucinations with psychosis and methamphetamines in his drug screen. Apparently he went [facility] on skilled care and signed himself out the next day returned home next door to his brother. Apparently he knew he took too much insulin gave himself no intervention like eating or drinking anything with sugar content and was found to have altered mental status by his brother who called paramedics found to have blood sugar of 40 even after he was given something to eat and drink. He has had multiple falls recently without any severe injury he does have chronic pain but due to the fact of his prior history of illicit drug abuse and overdoses with narcotics he will be given Tylenol No. 3 that he was given at discharge to the intermediate by Dr. Lux. We did evaluate his depression and overall mental health and he is willing to be screened for senior behavioral unit to obtain that type of care prior to returning to a nursing facility which is going to be recommended. Source: patient Exam Limitations: no limitations Date Seen 03/02/17 Time Seen by Provider: 09:30 Attending Physician Janina Oscar DO PCP No,Local Physician Referring Physician Date of Admission Mar 02, 2017 at 03:55 Home Medications & Allergies Home Medications Reviewed patient Home Medication Reconciliation Form Allergies Allergies Coded Allergies metformin (Verified Allergy, Unknown, 10/22/14) Past Dicsozg-Zeemcd-Lstrqu Hx Patient Social History Marrital Status: single Employed/Student: retired Alcohol Use: Denies Use Recreational Drug Use: Yes (Not since 1990) Drug of Choice: meth Smoking Status: Unknown if Ever Smoked Physical Abuse Screen: No Sexual Abuse: No Recent Foreign Travel: No Contact w/other who traveled: No Recent Hopitalizations: No Recent Infectious Disease Expo: Yes Immunizations Up To Date Pediatric: Yes Seasonal Allergies Seasonal Allergies: Yes Surgeries Yes (electroshock therapy, colonoscopy) Respiratory No Cardiovascular Yes High Cholesterol, Hypertension Neurological Yes Parkinson's Disease, Stroke Genitourinary Yes Prostate Problems, Bladder Infection, UTI-Chronic Gastrointestinal Yes Polyps, Irritable Bowel Musculoskeletal Yes Arthritis, Chronic Back Pain Endocrine History of Endocrine Disorders: Yes Endocrine Disorders: Diabetes, Insulin dep HEENT History of HEENT Disorders: No Cancer No Psychosocial History of Psychiatric Problem: Yes Behavioral Health Disorders: Anxiety, Suicide Attempts, Depression Integumentary History of Skin or Integumenta: No Blood Transfusions History of Blood Disorders: No Reviewed Nursing Assessment Reviewed/Agree w Nursing PMH: Yes Family Medical History Family Hx: Alcoholism 19 FATHER Bipass surgery G8 BROTHER Brain cancer 19 MOTHER Diabetes mellitus 19 FATHER Respiratory disorder G8 BROTHER Review of Systems Constitutional: see HPI, weakness EENTM: no symptoms reported Respiratory: no symptoms reported Cardiovascular: no symptoms reported Gastrointestinal: no symptoms reported Genitourinary: no symptoms reported Musculoskeletal: back pain Skin: no symptoms reported Psychiatric/Neurological: No Symptoms Reported All Other Systems Reviewed Negative Unless Noted: Yes Physical Exam Physical Exam Vital Signs Vital Sign - Last 12Hours 03/02/17 03/02/17 00:57 05:54 Temp 92.8 Pulse 84 Resp 20 B/P (MAP) 146/77 (100) Pulse Ox 93 O2 Delivery Room Air O2 Flow Rate 3.00 Capillary Refill : NONELess Than 3 Seconds General Appearance: No Apparent Distress, WD/WN, Chronically ill, Obese Eyes: Bilateral Eye Normal Inspection, Bilateral Eye PERRL HEENT: PERRL/EOMI, Normal ENT Inspection, Pharynx Normal Neck: Full Range of Motion, Normal Inspection, Non Tender, Supple, Carotid Bruit Respiratory: Chest Non Tender, Lungs Clear, Normal Breath Sounds, No Accessory Muscle Use, No Respiratory Distress Cardiovascular: Regular Rate, Rhythm, No Edema, No Gallop, No JVD, No Murmur, Normal Peripheral Pulses Gastrointestinal: Normal Bowel Sounds, No Organomegaly, No Pulsatile Mass, Non Tender, Soft Back: Normal Inspection, No CVA Tenderness, No Vertebral Tenderness Extremity: Normal Capillary Refill, Normal Inspection, Normal Range of Motion, Non Tender, No Calf Tenderness, No Pedal Edema Neurologic/Psychiatric: Alert, Oriented x3, No Motor/Sensory Deficits, Depressed Affect Skin: Normal Color, Warm/Dry Lymphatic: No Adenopathy Results Results/Procedures Lab Laboratory Tests 03/02/17 01:30 Short Stay Diagnosis Discharge Diagnosis-Short Stay Admission Diagnosis Assessment: Severe hypoglycemia due to nonpurposeful insulin overdose but was unable to give himself any intervention to treat the hypoglycemia Multiple falls at home recently and can no longer live by himself and he signed himself out of intermediate one day after admission one week ago Poor hygiene Psychosis and hallucinations recently Depression received senior behavioral unit treatment in the past Diabetes mellitus insulin requiring Hypertension Final Discharge Diagnosis Assessment: Severe hypoglycemia due to nonpurposeful insulin overdose but was unable to give himself any intervention to treat the hypoglycemia Multiple falls at home recently and can no longer live by himself and he signed himself out of intermediate one day after admission one week ago Poor hygiene Psychosis and hallucinations recently Depression received senior behavioral unit treatment in the past Diabetes mellitus insulin requiring Hypertension Conclusion Plan Plan: DC IVF of D10 at 50cc/hr SSI with Novolog A [facility] transfer? Cannot live at home alone needs 24/ supervision Clinical Quality Measures DVT/VTE Risk/Contraindication: Risk Factor Score Per Nursin RFS Level Per Nursing on Admit: 4+=Very High JANINA OSCAR DO Mar 02, 2017 11:07
[2017-03-02] MEDS: APAP 300 MG/CODEINE 30 MG (TYLENOL #3) TAB PO PRN ×2 (11:22→17:27)
[2017-03-02] MEDS: inSUlin ASPART (NovoLOG) 1 UNIT/0.01 ML (CHARGE PER UNIT) SC SCH ×3 (11:22→21:36)
[2017-03-02] MEDS ORDERED: CARI350T27 PO (11:27)
[2017-03-02] MEDS ORDERED: VENL150C98 PO (11:27)
[2017-03-02] MEDS ORDERED: ACET-790 PO (11:27)
[2017-03-02] MEDS ORDERED: INSU100I14 SQ (11:27)
[2017-03-02] MEDS ORDERED: TRAZ100T92 PO (11:27)
[2017-03-02] MEDS ORDERED: MIRT15TA6 PO (11:27)
[2017-03-02] MEDS ORDERED: METO100T12 PO (11:27)
[2017-03-02 12:00] VITALS: BP 187/81
[2017-03-02] MEDS ORDERED: ACETAMINOPHEN 500 MG TAB (TYLENOL) PO PRN (12:15)
[2017-03-02] MEDS ORDERED: amLODIPine 5 MG (NORVASC) TAB PO NR (12:21)
[2017-03-02] MEDS: CARISOPRODOL 350 MG (SOMA) TAB PO SCH ×3 (12:29→21:32)
[2017-03-02] MEDS: SINEMET CR 50/200 (CARBIDOPA/LEVODOPA SA) TAB PO SCH ×2 (12:29→21:32)
--- NOTE | 2017-03-02 13:42 | Physical Therapy Evaluation ---
PT Evaluation-General Medical Diagnosis Admission Date Mar 02, 2017 at 03:55 Medical Diagnosis: hypoglycemia Onset Date: Mar 02, 2017 Therapy Diagnosis Therapy Diagnosis: debility Height/Weight Height (Feet): 5 Height (Inches): 10.00 Weight (Pounds): 211 Weight (Ounces): 1.0 Precautions Precautions/Isolations: Fall Prevention, Standard Precautions Weight Bear Status Right Lower Extremity: Right Full Weight Bearing Left Lower Extremity: Left Full Weight Bearing Referral Physician: Dayne Reason for Referral: Evaluation/Treatment Medical History Pertinent Medical History: Arthritis, CVA, DM, Parkinson's Additional Medical History mental issues Current History EMS to ED secondary patient found unresponsive, hypoglycemic Reviewed History: Yes Social History Home: Single Level Current Living Status: Alone Prior/Core FIM Prior Level of Function Functional [place] Measure 0=Not Assessed/NA 4=Minimal Assistance 1=Total Assistance 5=Supervision or Setup 2=Maximal Assistance 6=Modified [place] 3=Moderate Assistance 7=Complete [place] Bed Mobility: 7 Transfers (B,C,W/C) (FIM): 7 Gait: 7 Locomotion: 7 PT Evaluation-Current Subjective Patient is in bed and agrees to PT. He refused to utilize FWW Pain Numeric Pain Scale: 0-No Pain Location: No Pain Reported Objective Patient Orientation: Person, Time, Situation Problem Solving: Fair ROM/Strength ROM Lower Extremities bilateral LE WNL Strength Lower Extremities bilateral LE WNL Integumentary/Posture Integumentary refer to nursing notes Bowel Incontinence: No Bladder Incontinence: No Posture WFL Neuromuscular (Tone, Coordination, Reflexes) slightly diminished coordination due to inactivity. Sensory Vision: Functional Hearing: Functional Sensation Right Lower Extremit: Impaired Sensation Left Lower Extremity: Impaired Transfers Functional [place] Measure 0=Not Assessed/NA 4=Minimal Assistance 1=Total Assistance 5=Supervision or Setup 2=Maximal Assistance 6=Modified [place] 3=Moderate Assistance 7=Complete [place] Transfers (B, C, W/C) (FIM): 7 Scootin Rollin Supine to/from Sit: 7 Sit to/from Stand: 7 Gait Mode of Locomotion: Walk Anticipated Mode of Locomotion: Walk Gait (FIM): 7 Distance (FIM): 3=150 ft Distance: 150' Gait Level of Assist: 7 Gait Assistive Device: None Comments/Gait Description decreased tiffany, slight shuffle gait sequence Balance Sitting Static: Normal Sitting Dynamic: Normal Standing Static: Normal Standing Dynamic: Normal Assessment/Needs 76 y.o. male, is currently at independent PLOF with all gross motor skills and does not require skilled PT intervention at this time. Rehab Potential: Good PT Plan Treatment/Plan Treatment Plan: Discontinue PT, goals met Treatment Plan: Education Treatment Duration: Mar 02, 2017 Frequency: 1 time per week Estimated Hrs Per Day: .5 hour per day Patient and/or Family Agrees t: Yes Safety Risks/Education Patient Education: Safety Issues Teaching Recipient: Patient Teaching Methods: Discussion Response to Teaching: Verbalize Understanding Discharge Recommendations Therapy D/C Recommendations: Home w/ Family Support, Alf (TCU/NH) Time/GCodes Time In: 1245 Time Out: 1300 Total Billed Treatment Time: 15 Total Billed Treatment 1 visit EVLowC 15 min G Codes Necessary: Yes PT/OT Therapy GCodes Therapy Test(s)/Tool used to determine: Level of Assistance Scale Functional Limitation-Current Charge Code: MOBCUR Modifier: CH Functional Limitation-Goal Charge Code: MOBGOAL Modifier: CH Functional Limitation-D/C Charge Codes: MOBDC Modifier: ANGELIKA ELLIOTT PT Mar 02, 2017 13:42
[2017-03-02 16:00] VITALS: BP 185/73
--- NOTE | 2017-03-02 16:03 | Occupational Therapy Eval ---
OT Evaluation-General/PLF Medical Diagnosis Admission Date Mar 02, 2017 at 03:55 Medical Diagnosis: hypoglycemia Onset Date: Mar 02, 2017 Therapy Diagnosis Therapy Diagnosis: decr self care Height/Weight Height (Feet): 5 Height (Inches): 10.00 Weight (Pounds): 211 Weight (Ounces): 1.0 Precautions Precautions/Isolations: Fall Prevention, Standard Precautions Safety Interventions: Bed Exit Alarm, Reorient-PRN Referral Physician: Dayne Referral Reason: Evaluation/Treatment Medical History Pertinent Medical History: Arthritis, CVA, DM, HTN, Parkinson's Additional Medical History Electroshock therapy, anxiety, depression, suicide attempts. Prostate problems, chronic UTI. Chronic back pain. Multiple falls. Psychosis and hallucinations recently. Current History Admitted through ED with hypoglycemia, AMS. Pt was unresponsive Reviewed History: Yes Social History Home: Single Level Current Living Status: Alone ADL-Prior Level of Function ADL PLOF Comments Pt reported that he has been able to manage his basic self care needs, such as dressing, grooming, toileting. He does live alone. DME/Equipment Comments unknown DME OT Current Status Subjective Pt seen in room, up in high lift driver, agreeable to OT. pt reported pain 0/10 Appearance Alert, cooperative Mental Status/Objective Patient Orientation: Person, Place, Time Attachments: Saline Lock Current Hand Dominance: Right Upper Extremity ROM Grossly WFL bilat Upper Extremity Coordination Slight tremors observe in hands but he was able to open milk carton and fruit containers Upper Extremity Sensation Pt reported numbness and tingling in both hands, most of the time Upper Extremity Strength Grossly WFL bilat ADL-Treatment ADL-Current Pt reported that he has been taking himself to the bathroom with only SBA and this was confirmed by nursing. He was able to open milk container and fruit cup and feed himself without difficulty. Pt did not feel like he needed skilled OT since he is able to manage his basic ADL needs. Functional [place] Measure 0=Not Assessed/NA 4=Minimal Assistance 1=Total Assistance 5=Supervision or Setup 2=Maximal Assistance 6=Modified [place] 3=Moderate Assistance 7=Complete IndependenceIRFPAI Quality Coding Scale 6 Independent with activity with or without an assistive device 5 Patient requires set up or clean up by helper. Patient completes activity by themselves 4 Supervision or touching assist (CGA). [place] provide cues , steadying assist 3 The helper provides less than half the effort to complete the activity 2 The helper provides more than half the effort to complete the activity 1 Dependent. The helper does all the effort to complete an activity 7 Patient refused to complete or attempt activity 9 The patient did not perform the activity before the current illness or injury 88 Not attempted due to Medical conditions or safety concerns Education OT Patient Education: Purpose of tx/functional activities, Rehab process Teaching Recipient: Patient Teaching Methods: Discussion Response to Teaching: Verbalize Understanding OT Education/Plan Problem List/Assessment Assessment: No Skilled OT Needs ID'd Pt is able to manage toileting with SBA for safety and has WFL UE strength and ROM. No skilled OT needs identified Discharge Recommendations Plan/Recommendations: Discontinue OT Treatment Plan/Plan of Care Treatment,Training & Education: No Patient would benefit from OT for education, treatment and training to promote independence in ADL's, mobility, safety and/or upper extremity function for ADL' s. Treatment Duration: Mar 02, 2017 Frequency: 1 time per week Estimated Hrs Per Day: .25 hour per day Agreement: Yes Rehab Potential: Good Time/GCodes Start Time: 15:03 Stop Time: 15:20 Total Time Billed (hr/min): 17 Billed Treatment Time visit, evaluation low intensity PT/OT Therapy GCodes Therapy Functional Limitation: Occupational Therapy Test(s)/Tool used to determine: FIM Functional Limitation-Current Charge Code: SELFCUR Modifier: CI Functional Limitation-Goal Charge Code: SELFGOAL Modifier: CI Functional Limitation-D/C Charge Codes: SELFDC Modifier: IMAN HOGAN OT Mar 02, 2017 16:03
[2017-03-02] MEDS ORDERED: ALFUZOSIN HCL 10 MG TAB (UROXATRAL) PO SCH (18:00)
[2017-03-02] MEDS ORDERED: oxyCODONE/APAP 5/325MG (PERCOCET 5) TABLET PO PRN (18:00)
[2017-03-02 20:00] VITALS: BP 181/80
[2017-03-02] MEDS ORDERED: MIRTAZAPINE 15 MG (REMERON) TAB PO SCH (21:00)
[2017-03-02] MEDS ORDERED: traZODone 100 MG (DESYREL) TAB PO SCH (21:00)
[2017-03-02] MEDS ORDERED: ATORVASTATIN 80 MG (LIPITOR) TABLET PO SCH (21:00)
[2017-03-02] MEDS: meTOprolol TARTRATE 50 MG (LOPRESSOR) TAB PO SCH (21:32)
[2017-03-03] VITALS: BP_SYST 161; BP_SYST 188; BP_DIAS 42; BP_DIAS 51
[2017-03-03 04:00] VITALS: BP 128/62
[2017-03-03] MEDS: inSUlin ASPART (NovoLOG) 1 UNIT/0.01 ML (CHARGE PER UNIT) SC SCH ×2 (05:54→11:03)
[2017-03-03 06:51] LABS: BASOPHILS % (AUTO) 0 % (0-10); EOSINOPHILS # (AUTO) 0.8 10^3/uL (0.0-0.3); EOSINOPHILS % (AUTO) 6 % (0-10); HEMATOCRIT 33 % (40-54); HEMOGLOBIN 10.9 G/DL (13.3-17.7); LYMPHOCYTES # (AUTO) 2.5 X 10^3 (1.0-4.0); LYMPHOCYTES % (AUTO) 19 % (12-44); MEAN CORPUSCULAR HEMOGLOBIN 30 PG (25-34); MEAN CORPUSCULAR HGB CONC 33 G/DL (32-36); MEAN CORPUSCULAR VOLUME 92 FL (80-99); MEAN PLATELET VOLUME 8.9 FL (7.4-10.4); MONOCYTES # (AUTO) 1.1 X 10^3 (0.0-1.0); MONOCYTES % (AUTO) 9 % (0-12); NEUTROPHILS # (AUTO) 8.5 X 10^3 (1.8-7.8); NEUTROPHILS % (AUTO) 66 % (42-75); PLATELET COUNT 502 10^3/uL (130-400); RED BLOOD COUNT 3.61 10^6/uL (4.35-5.85); RED CELL DISTRIBUTION WIDTH 14.2 % (10.0-14.5); WHITE BLOOD COUNT 12.9 10^3/uL (4.3-11.0)
[2017-03-03] MEDS ORDERED: VENlafaxine XR 75 MG (EFFEXOR XR) CAP PO SCH (07:00)
[2017-03-03 07:12] LABS: ALANINE AMINOTRANSFERASE 7 U/L (0-55); ALBUMIN 3.1 GM/DL (3.2-4.5); ALKALINE PHOSPHATASE 69 U/L (40-136); BILIRUBIN,TOTAL 0.5 MG/DL (0.1-1.0); BUN/CREATININE RATIO 16; CALCIUM 8.2 MG/DL (8.5-10.1); CARBON DIOXIDE 23 MMOL/L (21-32); CHLORIDE 107 MMOL/L (98-107); CREATININE SERUM 0.81 MG/DL (0.60-1.30); GFR ESTIMATED > 60; GLUCOSE 232 MG/DL (70-105); POTASSIUM 4.2 MMOL/L (3.6-5.0); SODIUM 140 MMOL/L (135-145)
[2017-03-03 07:43] VITALS: BP 138/51
[2017-03-03] MEDS: CARISOPRODOL 350 MG (SOMA) TAB PO SCH (08:35)
[2017-03-03] MEDS: meTOprolol TARTRATE 50 MG (LOPRESSOR) TAB PO SCH (08:36)
[2017-03-03] MEDS: SINEMET CR 50/200 (CARBIDOPA/LEVODOPA SA) TAB PO SCH (08:36)
[2017-03-03] MEDS ORDERED: ASPIRIN E.C. 81 MG (ECOTRIN) TAB PO SCH (09:00)
[2017-03-03] MEDS ORDERED: lisINopril 20 MG (ZESTRIL) TAB PO SCH (09:00)
[2017-03-03] MEDS ORDERED: INSU100V16 SQ (11:50)
[2017-03-03] MEDS ORDERED: INSU100V6 SQ (11:50)
[2017-03-03 11:56] VITALS: BP 122/58
[2017-03-03] MEDS ORDERED: METO50TA15 PO (11:58)
[2017-03-03] MEDS ORDERED: AMLO5TAB4 PO (11:58)
--- NOTE | 2017-03-03 12:14 | Discharge Summary-Hospitalist ---
Diagnosis/Chief Complaint Date of Admission Mar 02, 2017 at 03:55 Date of Discharge Discharge Date: Mar 03, 2017 Admission Diagnosis Assessment: Severe hypoglycemia due to nonpurposeful insulin overdose but was unable to give himself any intervention to treat the hypoglycemia Multiple falls at home recently and can no longer live by himself and he signed himself out of jail one day after admission one week ago Poor hygiene Psychosis and hallucinations recently Depression received senior behavioral unit treatment in the past Diabetes mellitus insulin requiring Hypertension Discharge Diagnosis Assessment: Severe hypoglycemia due to nonpurposeful insulin overdose but was unable to give himself any intervention to treat the hypoglycemia Multiple falls at home recently and can no longer live by himself and he signed himself out of jail one day after admission one week ago Poor hygiene Psychosis and hallucinations recently Depression received senior behavioral unit treatment in the past Diabetes mellitus insulin requiring Hypertension Plan: DC IVF of D10 at 50cc/hr SSI with Novolog A H transfer? Cannot live at home alone needs 26/09 supervision Discharge Summary Discharge Physical Examination Allergies: Coded Allergies: metformin (Verified Allergy, Unknown, 10/22/14) Vitals & I&Os Vital Signs Date Time Temp Pulse Resp B/P (MAP) Pulse Ox O2 Delivery O2 Flow Rate FiO2 03/03/17 11:56 97.1 57 20 122/58 (79) 93 Room Air 03/02/17 06:55 3.00 Hospital Course Notes from 03/03/17 SW Review: Pt is doing fine and states he will "do what Dr. Oscar thinks is best" Patient Interview: Pt confirms having received the Percocet and states he believes he is usually on Percodan Nursing facilities were discussed with the pt due to persistent falling. Pt states he does not want to go back to the jail. Pt states he is worried about fainting and falling. Pt was informed that DM can make him have these systems; pt states he has had DM since he was about 52 yo. Autonomic dysfunction was discussed with the pt. Labs were discussed and look good Pt was informed that I will not be able to let him go home. I encouraged the pt to do therapy if he does not want to go to a jail. Pt states that he felt mistreated at the jail he was at and does not want to go back. I informed the pt that I would be seeing him every day and I informed the pt that I always experience a peaceful environment at this facility. SW discussed that if the pt goes home and falls, he will have to go to a nursing facility Physical exam stable. Pt confirms BM today Pt was encouraged to think about where he wants to go next. AFVSS, [place], O x 3 RRR, CTAB No edema Plan: Pt safe to DC to [facility] senior unit Scribed by Briana Gonzalez under direct supervision of Dr. Janina Oscar. Hospital course: Patient had a standard hospital course he was given D10 IV fluids to maintain adequate glucose level and his body since severe hypoglycemia due to nonpurposeful insulin overdose at home. He seemed very depressed and withdrawn after another day of counseling he agreed to go to senior behavioral unit and be admitted for psychiatric treatment and medication management. I will manage his insulin by decreasing his home dose of Levemir to 20 units twice daily and NovoLog 10 units before meals and adjust as necessary. Labs (last 24 hrs) Laboratory Tests 03/02/17 15:52: Glucometer 126H 03/02/17 21:02: Glucometer 287H 03/03/17 05:47: Glucometer 191H 03/03/17 06:37: White Blood Count 12.9H, Red Blood Count 3.61L, Hemoglobin 10.9L, Hematocrit 33L , Mean Corpuscular Volume 92, Mean Corpuscular Hemoglobin 30, Mean Corpuscular Hemoglobin Concent 33, Red Cell Distribution Width 14.2, Platelet Count 502H, Mean Platelet Volume 8.9, Neutrophils (%) (Auto) 66, Lymphocytes (%) (Auto) 19, Monocytes (%) (Auto) 9, Eosinophils (%) (Auto) 6, Basophils (%) (Auto) 0, Neutrophils # (Auto) 8.5H, Lymphocytes # (Auto) 2.5, Monocytes # (Auto) 1.1H, Eosinophils # (Auto) 0.8H, Basophils # (Auto) 0.0, Sodium Level 140, Potassium Level 4.2, Chloride Level 107, Carbon Dioxide Level 23, Anion Gap 10, Blood Urea Nitrogen 13, Creatinine 0.81, Estimat Glomerular Filtration Rate > 60, BUN/ Creatinine Ratio 16, Glucose Level 232H, Calcium Level 8.2L, Total Bilirubin 0.5 , Aspartate Amino Transf (AST/SGOT) 15, Alanine Aminotransferase (ALT/SGPT) 7, Alkaline Phosphatase 69, Total Protein 6.0L, Albumin 3.1L 03/03/17 10:55: Glucometer 351H Microbiology 03/02/17 Blood Culture - Preliminary, Resulted No growth 03/02/17 Influenza Types A,B Antigen (YANNA) - Final, Complete Pending Labs Laboratory Tests 03/03/17 05:47: Glucometer 191 03/03/17 06:37: White Blood Count 12.9, Red Blood Count 3.61, Hemoglobin 10.9, Hematocrit 33, Mean Corpuscular Volume 92, Mean Corpuscular Hemoglobin 30, Mean Corpuscular Hemoglobin Concent 33, Red Cell Distribution Width 14.2, Platelet Count 502, Mean Platelet Volume 8.9, Neutrophils (%) (Auto) 66, Lymphocytes (%) (Auto) 19, Monocytes (%) (Auto) 9, Eosinophils (%) (Auto) 6, Basophils (%) (Auto) 0, Neutrophils # (Auto) 8.5, Lymphocytes # (Auto) 2.5, Monocytes # (Auto) 1.1, Eosinophils # (Auto) 0.8, Basophils # (Auto) 0.0, Sodium Level 140, Potassium Level 4.2, Chloride Level 107, Carbon Dioxide Level 23, Anion Gap 10, Blood Urea Nitrogen 13, Creatinine 0.81, Estimat Glomerular Filtration Rate > 60, BUN/ Creatinine Ratio 16, Glucose Level 232, Calcium Level 8.2, Total Bilirubin 0.5, Aspartate Amino Transf (AST/SGOT) 15, Alanine Aminotransferase (ALT/SGPT) 7, Alkaline Phosphatase 69, Total Protein 6.0, Albumin 3.1 03/03/17 10:55: Glucometer 351 Discharge Home Medications: Active Scripts Active Norvasc (Amlodipine Besylate) 5 Mg Tablet 5 Mg PO DAILY 30 Days Metoprolol Tartrate 50 Mg Tablet 50 Mg PO BID 30 Days Novolog (Insulin Aspart) 100 Unit/1 Ml Susp 10 Unit SQ AC 30 Days Lantus (Insulin Glargine,Hum.rec.anlog) 100 Unit/1 Ml Vial 20 Unit SQ Q12H 30 Days Reported Venlafaxine HCl ER (Venlafaxine HCl) 150 Mg Cap.er.24h 150 Mg PO DAILY Trazodone HCl 100 Mg Tablet 200 Mg PO HS TAKES 2 (100MG) TABLETS Mirtazapine 15 Mg Tablet 15 Mg PO HS Carisoprodol 350 Mg Tablet 350 Mg PO QID Tylenol with Codeine #4 Tablet (Acetaminophen with Codeine) 1 Each Tablet 1 Tab PO BID PRN Lisinopril 40 Mg Tablet 80 Mg PO DAILY TAKES 2 (40MG) TABLETS Tylenol Extra Strength (Acetaminophen) 500 Mg Tablet 1,000 Mg PO Q8H PRN Carbidopa-Levo ER 50-200 Tab (Carbidopa/Levodopa) 1 Each Tablet.er 1 Tab PO TID Flomax (Tamsulosin HCl) 0.4 Mg Cap 0.4 Mg PO DAILY Aspirin EC (Aspirin) 81 Mg Tablet.dr 81 Mg PO DAILY Lipitor (Atorvastatin Calcium) 80 Mg Tablet 80 Mg PO HS Instructions to patient/family Please see electronic discharge instructions given to patient. Clinical Quality Measures DVT/VTE Risk/Contraindication: Risk Factor Score Per Nursin RFS Level Per Nursing on Admit: 4+=Very High JANINA OSCAR DO Mar 03, 2017 12:14
== END 2017-03-03 11:50 ==
LOC: EDUNIT# 00:55 → ER 00:57 → 4TH 03:55 → UNDOADMOB 03:55 → 4TH 04:50 → UNDODISOB 03-03 13:00
PROVIDERS: ADMIT Internal Medicine; ATTEND Internal Medicine
DX: E11.649 Type 2 diabetes mellitus with hypoglycemia without coma (principal); T38.3X1A Poisoning by insulin and oral hypoglycemic [antidiabetic] drugs, accidental (unintentional), initial encounter; Z79.4 Long term (current) use of insulin; F32.9 Major depressive disorder, single episode, unspecified; I10 Essential (primary) hypertension; Z91.81 History of falling; E78.00 Pure hypercholesterolemia, unspecified; R44.3 Hallucinations, unspecified
CPT/HCPCS: 36415; 70450; 71010; 80053; 80306; 80320; 80329; 81000; 82962; 83605; 85007; 85025; 85027; 85610; 85730; 87040; 87804; 96376; G0378

== ENCOUNTER 2017-03-15 11:30 | Inpatient (IN) | payer MEDICARE ==
[~2017-03-15] VITALS: Ht 182.9 cm; Wt 88.0 kg
[2017-03-15] VITALS (7 sets, daily range): BP systolic 124–163; BP diastolic 59–101
[~2017-03-15 11:30] MED LIST changes: +ACET-790 PO; +AMLO5TAB4 PO; +INSU100V16 SQ; +INSU100V6 SQ; +METO50TA15 PO; +VENL150C98 PO
[2017-03-15] MEDS ORDERED: NS IV 1000 ML 1,000 ML IV ONE (11:40)
[2017-03-15 11:46] LABS: BASOPHILS % (AUTO) 0 % (0-10); EOSINOPHILS % (AUTO) 0 % (0-10); HEMATOCRIT 43 % (40-54); HEMOGLOBIN 14.2 G/DL (13.3-17.7); LYMPHOCYTES % (AUTO) 13 % (12-44); MEAN CORPUSCULAR HEMOGLOBIN 31 PG (25-34); MEAN CORPUSCULAR HGB CONC 33 G/DL (32-36); MEAN CORPUSCULAR VOLUME 92 FL (80-99); MEAN PLATELET VOLUME 9.9 FL (7.4-10.4); MONOCYTES % (AUTO) 7 % (0-12); NEUTROPHILS % (AUTO) 80 % (42-75); PLATELET COUNT 360 10^3/uL (130-400); RED BLOOD COUNT 4.61 10^6/uL (4.35-5.85); RED CELL DISTRIBUTION WIDTH 12.8 % (10.0-14.5); WHITE BLOOD COUNT 17.4 10^3/uL (4.3-11.0)
[2017-03-15 11:47] LABS: LYMPHOCYTES # (AUTO) 2.2 X 10^3 (1.0-4.0); MONOCYTES # (AUTO) 1.2 X 10^3 (0.0-1.0)
[2017-03-15] MEDS ORDERED: LORazepam INJ 2 MG/ML (ATIVAN) VIAL IVP ONE (12:00)
[2017-03-15 12:06] LABS: INR 1.1 (0.8-1.4); PROTHROMBIN TIME PATIENT 14.4 SEC (12.2-14.7)
[2017-03-15 12:08] LABS: BAND NEUTROPHILS 1 %; LYMPHOCYTES % (MANUAL) 11 %; NEUTROPHILS % (MANUAL) 82 %
[2017-03-15 12:09] LABS: BASOPHILS % (MANUAL) 0 %; EOSINOPHILS % (MANUAL) 0 %; MONOCYTES % (MANUAL) 6 %; RBC MORPH NORMAL
--- NOTE | 2017-03-15 12:13 | ED General ---
General Chief Complaint: Glucose Problems Stated Complaint: AMS Source of Information: EMS, Old Records Exam Limitations: Other (PT UNABLE TO ANSWER ANY QUESTIONS) History of Present Illness Time Seen by Provider: 11:34 Initial Comments PT ARRIVES VIA EMS FROM HOME--LIVES WITH BROTHER/BROTHER LIVES NEXT DOOR, AND POLICE ALWAYS HAVE TO BE PRESENT PRIOR TO EMS PT REPEATS "WATER" OVER AND OVER,AND IS WAILING, SOBBING, TREMULOUS PT IS KNOWN INSULIN-DEPENDENT DIABETIC AND BLOOD SUGAR READING WAS "HIGH" FOR EMS IS UNKNOWN WHEN PT LAST HAD HIS INSULIN OR ANY OF HIS MEDICATIONS, AND BLOOD GLUCOSE WAS NOT CHECKED BY BROTHER PRIOR TO CALLING EMS. PT WAS ADMITTED HERE 02/16-02/22 FOR PSYCHOSIS, THEN BACK AGAIN 03/02-03/03 AND THEN TRANSFERRED TO [facility], WHERE HE HAS BEEN UNTIL HE WAS RELEASED TO GO BACK HOME ON Monday03/13/17 IS UNCLEAR EXACTLY WHY EMS WAS CONTACTED EMS REPORTS THAT PT'S BROTHER GAVE HIM 2 LARGE GLASSES OF WATER THIS MORNING AND PT KEEPS WANTING MORE NO OTHER INFORMATION IS OBTAINABLE AT THIS TIME, AND BROTHER DID NOT ACCOMPANY PT TO ER 1145--DR. DAVALOS HAPPENED TO BE IN ER, AND SHE IS VERY FAMILIAR WITH PT, AND SHE TOOK CARE OF HIM AT [facility]. SHE STATES THAT PT WAS DOING MUCH BETTER, AND HIS BLOOD SUGARS WERE UNDER GOOD CONTROL, ARRANGEMENTS WERE MADE AND ALL GUNS WERE REMOVED FROM THE HOME, AND FELT LIKE HE WOULD BE ABLE TO GO BACK HOME, BROTHER HAS A HOUSE NEXT DOOR AND BASICALLY LIVES WITH PT. PRIOR TO THIS, IT WAS FELT LIKE THE PT COULD NO LONGER RESIDE AT HOME AND WOULD NEED [facility] CARE. SHE IS CONTACTING [employer] AND OTHER PERSONS, AND KUSHAL BORDEN ( LOCAL [employer] WHO IS LISTED HIS DPOA ON OLD HOSPITAL RECORD) REGARDING EMERGENCY GUARDIANSHIP AND [facility] PLACEMENT. PT WITH LONG HISTORY OF NON-COMPLIANCE AND POLYSUBSTANCE ABUSE, AND TESTED + FOR METH ON RECENT HOSPITALIZATIONS Allergies and Home Medications Allergies Coded Allergies: metformin (Verified Allergy, Unknown, 10/22/14) Home Medications Acetaminophen with Codeine 1 Each Tablet, 1 TAB PO BID PRN for PAIN-MODERATE, ( Reported) Amlodipine Besylate 5 Mg Tablet, 5 MG PO DAILY for 30 Days Prescribed by: KASI DAVALOS on 03/03/17 1158 Aspirin 81 Mg Tablet.dr, 81 MG PO DAILY, (Reported) Atorvastatin Calcium 80 Mg Tablet, 80 MG PO HS, (Reported) Carbidopa/Levodopa 1 Each Tablet.er, 1 TAB PO TID, (Reported) Carisoprodol 350 Mg Tablet, 350 MG PO QID, (Reported) Insulin Aspart 100 Unit/1 Ml Susp, 10 UNIT SQ AC for 30 Days Prescribed by: KASI DAVALOS on 03/03/17 1150 Insulin Detemir 100 Unit/1 Ml Insuln.pen, 30 UNIT SQ HS, (Reported) Lactulose 20 Gm/30 Ml Solution, 20 GM PO BID, (Reported) Lisinopril 40 Mg Tablet, 80 MG PO DAILY, (Reported) TAKES 2 (40MG) TABLETS Metoprolol Tartrate 50 Mg Tablet, 50 MG PO BID for 30 Days Prescribed by: KASI DAVALOS on 03/03/17 1158 Mirtazapine 15 Mg Tablet, 15 MG PO HS, (Reported) Phenazopyridine HCl 100 Mg Tablet, 100 MG PO TID, (Reported) Quetiapine Fumarate 25 Mg Tablet, 50 MG PO HS, (Reported) Tamsulosin HCl 0.4 Mg Cap, 0.4 MG PO DAILY, (Reported) Trazodone HCl 100 Mg Tablet, 200 MG PO HS, (Reported) TAKES 2 (100MG) TABLETS Venlafaxine HCl 150 Mg Cap.er.24h, 150 MG PO DAILY, (Reported) Constitutional: other (PT UNABLE TO ANSWER QUESTIONS) Past Ellaklo-Eegums-Vtxlpq Hx Patient Social History Recreational Drug Use: Yes (POLYSUBSTANCES, HAS TESTED + FOR METH 02/2017) Drug of Choice: meth Recent Hopitalizations: No Immunizations Up To Date PED Vaccines UTD: Yes Seasonal Allergies Seasonal Allergies: Yes Surgeries History of Surgeries: Yes (electroshock therapy, colonoscopy) Respiratory History of Respiratory Disorde: No Cardiovascular History of Cardiac Disorders: Yes Cardiac Disorders: High Cholesterol, Hypertension Neurological History of Neurological Disord: Yes Neurological Disorders: Parkinson's Disease, Stroke Genitourinary History of Genitourinary Disor: Yes Genitourinary Disorders: Prostate Problems, Bladder Infection, UTI-Chronic Gastrointestinal History of Gastrointestinal Di: Yes Gastrointestinal Disorders: Polyps, Irritable Bowel Musculoskeletal History of Musculoskeletal Dis: Yes Musculoskeletal Disorders: Arthritis, Chronic Back Pain Endocrine History of Endocrine Disorders: Yes Endocrine Disorders: Diabetes, Insulin dep HEENT History of HEENT Disorders: No Cancer History of Cancer: No Psychosocial History of Psychiatric Problem: Yes Behavioral Health Disorders: Anxiety, Suicide Attempts, Depression Integumentary History of Skin or Integumenta: No Blood Transfusions History of Blood Disorders: No Family Medical History Family Medial History: Alcoholism 19 FATHER Bipass surgery G8 BROTHER Brain cancer 19 MOTHER Diabetes mellitus 19 FATHER Respiratory disorder G8 BROTHER Physical Exam Vital Signs Vital Sign - Last 12Hours 03/15/17 11:30 Temp 95.8 Pulse 105 Resp 18 B/P (MAP) 138/92 (107) Pulse Ox 97 Capillary Refill : General Appearance: Other (AGITATED, WAILING/SOBBING WITHOUT TEARS "WATER, WATER, WATER" CONTINUOUSLY. TREMULOUS. KEEPS EYES CLOSED, ANSWERS "WATER" TO EVERY QUESTION HE IS ASKED AND IS NOT FOLLOWING COMMANDS. VERY UNKEMPT) Respiratory: Normal Breath Sounds, No Accessory Muscle Use, No Respiratory Distress Cardiovascular: Regular Rate, Rhythm, No Edema, No Murmur Gastrointestinal: Soft Extremity: Normal Range of Motion, No Pedal Edema Neurologic/Psychiatric: Alert, Other (GROSS MOTOR AND SENSORY INTACT, BUT DOES NOT FOLLOW COMMANDS OR ANSWER QUESTIONS, SO ORIENTATION IS NOT OBTAINABLE AT THIS TIME. ) Skin: Normal Color, Warm/Dry Progress/Results/Core Measures Suspected Sepsis SIRS Temperature: Pulse: Respiratory Rate: Laboratory Tests 03/15/17 11:35: White Blood Count 17.4H Blood Pressure / Mean: Laboratory Tests 03/15/17 11:35: Creatinine 1.55H, INR Comment 1.1, Platelet Count 360, Total Bilirubin 1.1H 03/15/17 16:00: Creatinine 1.03 Results/Orders Lab Results Laboratory Tests Test 03/15/17 11:35 03/15/17 11:47 03/15/17 12:54 03/15/17 13:15 Range/Units White Blood Count 17.4 H 4.3-11.0 10^3/uL Red Blood Count 4.61 4.35-5.85 10^6/uL Hemoglobin 14.2 13.3-17.7 G/DL Hematocrit 43 40-54 % Mean Corpuscular Volume 92 80-99 FL Mean Corpuscular Hemoglobin 31 25-34 PG Mean Corpuscular Hemoglobin Concent 33 32-36 G/DL Red Cell Distribution Width 12.8 10.0-14.5 % Platelet Count 360 130-400 10^3/uL Mean Platelet Volume 9.9 7.4-10.4 FL Neutrophils (%) (Auto) 80 H 42-75 % Lymphocytes (%) (Auto) 13 12-44 % Monocytes (%) (Auto) 7 0-12 % Eosinophils (%) (Auto) 0 0-10 % Basophils (%) (Auto) 0 0-10 % Neutrophils # (Auto) 14.0 H 1.8-7.8 X 10^3 Lymphocytes # (Auto) 2.2 1.0-4.0 X 10^3 Monocytes # (Auto) 1.2 H 0.0-1.0 X 10^3 Eosinophils # (Auto) 0.0 0.0-0.3 10^3/uL Basophils # (Auto) 0.0 0.0-0.1 10^3/uL Neutrophils % (Manual) 82 % Lymphocytes % (Manual) 11 % Monocytes % (Manual) 6 % Eosinophils % (Manual) 0 % Basophils % (Manual) 0 % Band Neutrophils 1 % Blood Morphology Comment NORMAL Prothrombin Time 14.4 12.2-14.7 SEC INR Comment 1.1 0.8-1.4 Activated Partial Thromboplast Time 24 24-35 SEC Sodium Level 137 135-145 MMOL/L Potassium Level 5.1 H 3.6-5.0 MMOL/L Chloride Level 102 98-107 MMOL/L Carbon Dioxide Level 16 L 21-32 MMOL/L Anion Gap 19 H 5-14 MMOL/L Blood Urea Nitrogen 19 H 7-18 MG/DL Creatinine 1.55 H 0.60-1.30 MG/DL Estimat Glomerular Filtration Rate 44 BUN/Creatinine Ratio 12 Glucose Level 648 *H 70-105 MG/DL Calcium Level 9.4 8.5-10.1 MG/DL Magnesium Level 1.7 L 1.8-2.4 MG/DL Total Bilirubin 1.1 H 0.1-1.0 MG/DL Aspartate Amino Transf (AST/SGOT) 28 5-34 U/L Alanine Aminotransferase (ALT/SGPT) 42 0-55 U/L Alkaline Phosphatase 130 40-136 U/L Total Protein 8.0 6.4-8.2 GM/DL Albumin 4.1 3.2-4.5 GM/DL Lipase 36 8-78 U/L TSH [place] Testing 1.33 0.35-4.94 UIU/ML Serum Alcohol < 10 <10 MG/DL Glucometer 559 *H 70-110 MG/DL Blood Gas Puncture Site R RAD Blood Gas Patient Temperature 95.8 Arterial Blood pH 7.38 7.37-7.43 Arterial Blood Partial Pressure CO2 27 L 35-45 MMHG Arterial Blood Partial Pressure O2 111 H 79-93 MMHG Arterial Blood HCO3 16 *L 23-27 MMOL/L Arterial Blood Total CO2 16.8 L 21.0-31.0 MMOL/L Arterial Blood Oxygen Saturation 98 94-100 % Arterial Blood Base Excess -8.5 L -2.5-2.5 MMOL/L David Test YES-POS Blood Gas Ventilator Setting NO Blood Gas Inspired Oxygen 2 Urine Color YELLOW Urine Clarity SLIGHTLY CLOUDY Urine pH 6 5-9 Urine Specific Paige 1.010 L 1.016-1.022 Urine Protein 2+ H NEGATIVE Urine Glucose (UA) 4+ H NEGATIVE Urine Ketones 2+ H NEGATIVE Urine Nitrite NEGATIVE NEGATIVE Urine Bilirubin NEGATIVE NEGATIVE Urine Urobilinogen NORMAL NORMAL MG/DL Urine Leukocyte Esterase NEGATIVE NEGATIVE Urine RBC (Auto) 2+ H NEGATIVE Urine RBC 2-5 H /HPF Urine WBC RARE /HPF Urine Squamous Epithelial Cells RARE /HPF Urine Crystals NONE /LPF Urine Bacteria NEGATIVE /HPF Urine Casts PRESENT /LPF Urine Hyaline Casts 0-2 H /LPF Urine Granular Casts 2-5 H /LPF Urine Mucus NEGATIVE /LPF Urine Culture Indicated NO Urine Opiates Screen POSITIVE H NEGATIVE Urine Oxycodone Screen NEGATIVE NEGATIVE Urine Methadone Screen NEGATIVE NEGATIVE Urine Propoxyphene Screen NEGATIVE NEGATIVE Urine Barbiturates Screen NEGATIVE NEGATIVE Ur Tricyclic Antidepressants Screen NEGATIVE NEGATIVE Urine Phencyclidine Screen NEGATIVE NEGATIVE Urine Amphetamines Screen NEGATIVE NEGATIVE Urine Methamphetamines Screen NEGATIVE NEGATIVE Urine Benzodiazepines Screen POSITIVE H NEGATIVE Urine Cocaine Screen NEGATIVE NEGATIVE Urine Cannabinoids Screen NEGATIVE NEGATIVE Test 03/15/17 14:13 03/15/17 15:49 03/15/17 16:00 Range/Units Glucometer 313 H 184 H 70-110 MG/DL Sodium Level 143 135-145 MMOL/L Potassium Level 3.6 3.6-5.0 MMOL/L Chloride Level 107 98-107 MMOL/L Carbon Dioxide Level 26 21-32 MMOL/L Anion Gap 10 5-14 MMOL/L Blood Urea Nitrogen 18 7-18 MG/DL Creatinine 1.03 0.60-1.30 MG/DL Estimat Glomerular Filtration Rate > 60 BUN/Creatinine Ratio 17 Glucose Level 194 H 70-105 MG/DL Calcium Level 9.1 8.5-10.1 MG/DL My Orders Orders - HAN GOMEZ DO Accucheck Stat ONCE (03/15/17 11:40) Saline Lock/Iv-Start (03/15/17 11:40) Monitor-Rhythm Ecg Trace Only (03/15/17 11:40) Alcohol (03/15/17 11:40) Cbc With Automated Diff (03/15/17 11:40) Comprehensive Metabolic Panel (03/15/17 11:40) Drug Screen Stat (Urine) (03/15/17 11:40) Lipase (03/15/17 11:40) Magnesium (03/15/17 11:40) Protime With Inr (03/15/17 11:40) Partial Thromboplastin Time (03/15/17 11:40) Thyroid Analyzer (03/15/17 11:40) Ua Culture If Indicated (03/15/17 11:40) Saline Lock/Iv-Start (03/15/17 11:40) Ns Iv 1000 Ml (Sodium Chloride 0.9%) (03/15/17 11:40) Manual Differential (03/15/17 11:35) Lorazepam Injection (Ativan Injection) (03/15/17 12:00) Insulin (Regular) Human (Humulin R (Per (03/15/17 12:30) Arterial Blood Gas (03/15/17 12:28) Ns Iv 1000 Ml (Sodium Chloride 0.9%) (03/15/17 12:45) Magnesium 1 Gm/100 Ml Ivpb (Magnesium Vo (03/15/17 13:14) Sodium Bicarbonate 8.4% Syr (Sodium Bica (03/15/17 13:15) Medications Given in ED Current Medications Medications Dose Ordered Sig/Oly Route Start Time Stop Time Status Last Admin Dose Admin Insulin Human Regular 30 unit ONCE ONCE IV 03/15/17 12:30 03/15/17 16:38 DC 03/15/17 12:28 30 UNIT Lorazepam 2 mg ONCE ONCE IVP 03/15/17 12:00 03/15/17 12:01 DC 03/15/17 12:11 2 MG Sodium Chloride 1,000 ml @ 0 mls/hr Q0M ONCE IV 03/15/17 11:40 03/15/17 16:38 DC 03/15/17 11:30 1,000 MLS/HR Vital Signs/I&O Vital Sign - Last 12Hours 03/15/17 03/15/17 03/15/17 03/15/17 11:30 13:36 14:00 14:00 Temp 95.8 98.0 Pulse 105 83 101 Resp 18 20 23 B/P (MAP) 138/92 (107) 137/79 (98) Pulse Ox 97 99 95 O2 Delivery Room Air 03/15/17 03/15/17 03/15/17 03/15/17 14:00 15:00 16:00 17:00 Pulse 102 90 81 90 Resp 25 9 11 B/P (MAP) 140/82 (101) 149/101 (117) 163/93 (116) Pulse Ox 93 96 96 O2 Delivery Room Air Room Air Room Air Capillary Refill : Progress Note : Progress Note GIVEN ATIVAN FOR INCREASING AGITATION, AND YELLING "WATER" PT CALMED AFTER THAT, AND CONTINUED TO ASK FOR WATER, BUT ONLY WHEN SOMEONE ENTERS THE ROOM, AND PT NOW MAKING EYE CONTACT AND ABLE TO CARRY ON CONVERSATION , AND FOLLOW SIMPLE COMMANDS Departure Communication (Admissions) Progress Notes 1230--SPOKE WITH DR. NEGRO, ACCEPTS PT FOR ADMIT. Impression Impression: Primary Impression: Diabetes mellitus, insulin dependent (IDDM), uncontrolled Additional Impressions: INABILITY TO CARE FOR SELF Hypotension Psychosis DKA (diabetic ketoacidoses) Dehydration Hypomagnesemia Disposition: ADMITTED INPATIENT Condition: Improved Admissions Decision to Admit Reason: Admit from ER (General) Decision to Admit/Date: Mar 15, 2017 Time/Decision to Admit Time: 12:30 Departure-Patient Inst. Referrals: NO,LOCAL PHYSICIAN (PCP/Family) Primary Care Physician HAN GOMEZ DO Mar 15, 2017 12:13
[2017-03-15 12:16] LABS: ALANINE AMINOTRANSFERASE 42 U/L (0-55); ALBUMIN 4.1 GM/DL (3.2-4.5); ALKALINE PHOSPHATASE 130 U/L (40-136); BILIRUBIN,TOTAL 1.1 MG/DL (0.1-1.0); BUN/CREATININE RATIO 12; CALCIUM 9.4 MG/DL (8.5-10.1); CARBON DIOXIDE 16 MMOL/L (21-32); CHLORIDE 102 MMOL/L (98-107); CREATININE SERUM 1.55 MG/DL (0.60-1.30); GFR ESTIMATED 44; LIPASE 36 U/L (8-78); MAGNESIUM 1.7 MG/DL (1.8-2.4); POTASSIUM 5.1 MMOL/L (3.6-5.0); SODIUM 137 MMOL/L (135-145)
[2017-03-15 12:19] LABS: GLUCOSE 648 MG/DL (70-105)
[2017-03-15] MEDS ORDERED: inSUlin (REGULAR) HUMAN 1 UNIT/0.01 ML (CHARGE PER UNIT) IV ONE (12:30)
[2017-03-15 12:35] LABS: TSH (THYROID ANALYZER) 1.33 UIU/ML (0.35-4.94)
[2017-03-15] MEDS: NS IV 1000 ML 1,000 ML IV SCH (12:46)
[2017-03-15 13:04] LABS: ABG BASE EXCESS -8.5 MMOL/L (-2.5-2.5); ABG OXYGEN SATURATION 98 % (94-100); ABG PCO2 27 MMHG (35-45); ABG PH 7.38 (7.37-7.43); ABG PO2 111 MMHG (79-93); ABG TCO2 16.8 MMOL/L (21.0-31.0)
[2017-03-15 13:06] LABS: ALLENS TEST YES-POS; INSPIRED O2 2; PATIENT TEMP 95.8; VENTILATOR NO
[2017-03-15] MEDS ORDERED: MAGNESIUM 1 GM/100 ML IVPB 100 ML IV NR (13:14)
[2017-03-15] MEDS ORDERED: SODIUM BICARB 8.4% 50 MEQ/50 ML (ABBOTT) SYR IV ONE (13:15)
[2017-03-15 13:24] LABS: BILIRUBIN,URINE NEGATIVE (NEGATIVE); CLARITY,URINE SLIGHTLY CLOUDY; COLOR,URINE YELLOW; GLUCOSE, URINE (UA) 4+ (NEGATIVE); KETONES,URINE 2+ (NEGATIVE); LEUKOCYTE ESTERASE ,URINE NEGATIVE (NEGATIVE); NITRITE,URINE NEGATIVE (NEGATIVE); PH,URINE 6 (5-9); PROTEIN,URINE 2+ (NEGATIVE); UROBILINOGEN,URINE NORMAL (NORMAL)
[2017-03-15 13:33] LABS: BACTERIA,URINE NEGATIVE /HPF; HYALINE CASTS, URINE 0-2 /LPF; SQUAMOUS EPITHELIAL CELL,UR RARE /HPF; WBC,URINE RARE /HPF
[2017-03-15 13:38] LABS: AMPHETAMINE SCREEN, URINE NEGATIVE (NEGATIVE); BARBITURATE SCREEN URINE NEGATIVE (NEGATIVE); BENZODIAZEPINES SCREEN URINE POSITIVE (NEGATIVE); CANNABINOID SCREEN, URINE NEGATIVE (NEGATIVE); COCAINE SCREEN URINE NEGATIVE (NEGATIVE); METHADONE STAT NEGATIVE (NEGATIVE); METHAMPHETAMINE SCREEN URINE S NEGATIVE (NEGATIVE); OPIATE SCREEN URINE POSITIVE (NEGATIVE); OXYCODONE STAT NEGATIVE (NEGATIVE); PROPOXYPHENE STAT NEGATIVE (NEGATIVE); TRICYCLIC ANTIDEPRESSANTS SCRE NEGATIVE (NEGATIVE)
[2017-03-15] MEDS ORDERED: LORazepam INJ 2 MG/ML (ATIVAN) VIAL IVP PRN (14:15)
[2017-03-15] MEDS ORDERED: DEXTROSE 10% IV SOLUTION 1,000 ML IV SCH (14:30)
[2017-03-15] MEDS ORDERED: REGULAR inSUlin DRIP 250 UNITS/NS 250 ML IV SCH ×2 (14:30)
[2017-03-15] MEDS ORDERED: 1/2 NS IV SOLUTION 1,000 ML IV SCH (14:30)
[2017-03-15] MEDS ORDERED: 1/2 NS W/KCL 20 MEQ/L 1,000 ML IV SCH (14:30)
[2017-03-15] MEDS ORDERED: D5 1/2 NS IV 1,000 ML IV SCH (14:30)
[2017-03-15] MEDS ORDERED: D5 1/2 NS W/KCL 20 MEQ/L 1,000 ML IV SCH (14:30)
[2017-03-15] MEDS ORDERED: NS IV 1000 ML X 1 WIDE OPEN IV ONE (14:30)
[2017-03-15] MEDS ORDERED: QUET25TA PO (16:00)
[2017-03-15] MEDS ORDERED: LACT20SO2 PO (16:00)
[2017-03-15] MEDS ORDERED: PHEN-639 PO (16:00)
[2017-03-15] MEDS ORDERED: INSU100I29 SQ (16:00)
--- NOTE | 2017-03-15 16:12 | History & Physical ---
MAURICIO ARORA MEDICAL STUDENT 03/15/17 1612: History and Physical CC: DKA, falls HPI: Mr. Garner is a 76y/o W M with PMH sig for HTN, Stroke, IDDM, and Suicide attempts. Pt is unable to answer questions for me and just asks for water. He is brought to the ED via EMS after complaining of being thirsty this morning. His BS reading was to high to measure in the ambulance. On arrival he was only repeating "water" over and over. BS was found to be 648. It is unknown when his last insulin administration was or when the last time he has received any meds because he was not accompanied by any family. He was released from [facility] on . This pt is well known to Dr. Oscar and was seen by her at his most recent admission to [facility] on 03/02/17. In the ED he was given insulin and started on fluids. A dose of ativan was given that seemed to cause some hypotension but he recovered shortly afterwards. He was transferred to the ICU for further management. PMH: Electroshock therapy, HLD, HTN, Stroke, IDDM, suicide attempt, polysubstance abuse with drug of choice being meth, depression All: NKDA FH: SH: ROS: unable to obtain due to pt AMS PE: General: pt sleeping in bed but is arouseable. He is confused and unable to answer any questions Skin: warm dry and intact HEENT: Dry mucus membranes. PERRLA, neck supple without lymphadenopathy Resp: clear breath sounds in all quadrants, no wheezes, rales or crakles appreciated Cardio: RRR, no murmurs rubs or gallops Vascular: Pulses palpable in bi lat LE MSK: full range of motion in all 4 extremities Ext: compression socks bilat lower extremities, no edema Neuro: CN II-XII grossly intact Psych: A&Ox1. he knows who he is but is unaware of the day or where he is besides in a hospital Date seen by provider: Mar 15, 2017 Time Seen by Provider: 14:00 Allergies and Home Medications Allergies Coded Allergies: metformin (Verified Allergy, Unknown, 10/22/14) Home Medications Acetaminophen with Codeine 1 Each Tablet, 1 TAB PO BID PRN for PAIN-MODERATE, ( Reported) Amlodipine Besylate 5 Mg Tablet, 5 MG PO DAILY for 30 Days Prescribed by: KASI OSCAR on 03/03/17 1158 Aspirin 81 Mg Tablet.dr, 81 MG PO DAILY, (Reported) Atorvastatin Calcium 80 Mg Tablet, 80 MG PO HS, (Reported) Carbidopa/Levodopa 1 Each Tablet.er, 1 TAB PO TID, (Reported) Carisoprodol 350 Mg Tablet, 350 MG PO QID, (Reported) Insulin Aspart 100 Unit/1 Ml Susp, 10 UNIT SQ AC for 30 Days Prescribed by: KASI OSCAR on 03/03/17 1150 Insulin Detemir 100 Unit/1 Ml Insuln.pen, 30 UNIT SQ HS, (Reported) Lactulose 20 Gm/30 Ml Solution, 20 GM PO BID, (Reported) Lisinopril 40 Mg Tablet, 80 MG PO DAILY, (Reported) TAKES 2 (40MG) TABLETS Metoprolol Tartrate 50 Mg Tablet, 50 MG PO BID for 30 Days Prescribed by: KASI OSCAR on 03/03/17 1158 Mirtazapine 15 Mg Tablet, 15 MG PO HS, (Reported) Phenazopyridine HCl 100 Mg Tablet, 100 MG PO TID, (Reported) Quetiapine Fumarate 25 Mg Tablet, 50 MG PO HS, (Reported) Tamsulosin HCl 0.4 Mg Cap, 0.4 MG PO DAILY, (Reported) Trazodone HCl 100 Mg Tablet, 200 MG PO HS, (Reported) TAKES 2 (100MG) TABLETS Venlafaxine HCl 150 Mg Cap.er.24h, 150 MG PO DAILY, (Reported) Clinical Quality Measures DVT/VTE Risk/Contraindication: Risk Factor Score Per Nursin RFS Level Per Nursing on Admit: 3=High KASI OSCAR DO 03/15/17 1702: History and Physical CC: Mild DKA with severe debility failed at home after discharge from hospital HPI: This is a 76-year-old white male known to me from multiple via [facility] hospitalizations for hallucinations and psychosis that was recently discharged from the senior behavioral unit [facility] this past Monday 2 days ago went home and could not even function by taking insulin eat or drink or anything to maintain himself. He had adamantly declines residential admission although he would've been a very good candidate on Monday considering I have a sugars in good control and compliant with medication and overall eating and drinking and doing very well. His at this point he is in agreement that nursing facility likely will be required and we will be in the mist of getting that set up once medically stable. His bicarbonate has returned to normal blood sugar 194 so insulin drip will be discontinued and patient will be placed on diabetic diet and monitor closely with Accu-Cheks with sliding scale. Patient appears to be disheveled and frail and very declined since last assessment brothers at the bedside Regular rate and rhythm, clear to auscultation bilaterally No edema Date seen by provider: Mar 15, 2017 Time Seen by Provider: 16:30 Assessment/Plan Admission Diagnosis DKA Chronic debilitating no longer able to live at home patient in agreement for residential facility placement for skilled care Hypertension Severe depression previously [facility] unit admission just discharged 2 days ago Chronic back pain Assessment and Plan Plan: Transition to sliding scale insulin Restart all home meds including insulin Monitor closely Needs residential placement Allergies and Home Medications Allergies Coded Allergies: metformin (Verified Allergy, Unknown, 10/22/14) Home Medications Acetaminophen with Codeine 1 Each Tablet, 1 TAB PO BID PRN for PAIN-MODERATE, ( Reported) Amlodipine Besylate 5 Mg Tablet, 5 MG PO DAILY for 30 Days Prescribed by: KASI OSCAR on 03/03/17 1158 Aspirin 81 Mg Tablet.dr, 81 MG PO DAILY, (Reported) Atorvastatin Calcium 80 Mg Tablet, 80 MG PO HS, (Reported) Carbidopa/Levodopa 1 Each Tablet.er, 1 TAB PO TID, (Reported) Carisoprodol 350 Mg Tablet, 350 MG PO QID, (Reported) Insulin Aspart 100 Unit/1 Ml Susp, 10 UNIT SQ AC for 30 Days Prescribed by: KASI OSCAR on 03/03/17 1150 Insulin Detemir 100 Unit/1 Ml Insuln.pen, 30 UNIT SQ HS, (Reported) Lactulose 20 Gm/30 Ml Solution, 20 GM PO BID, (Reported) Lisinopril 40 Mg Tablet, 80 MG PO DAILY, (Reported) TAKES 2 (40MG) TABLETS Metoprolol Tartrate 50 Mg Tablet, 50 MG PO BID for 30 Days Prescribed by: KASI OSCAR on 03/03/17 1158 Mirtazapine 15 Mg Tablet, 15 MG PO HS, (Reported) Phenazopyridine HCl 100 Mg Tablet, 100 MG PO TID, (Reported) Quetiapine Fumarate 25 Mg Tablet, 50 MG PO HS, (Reported) Tamsulosin HCl 0.4 Mg Cap, 0.4 MG PO DAILY, (Reported) Trazodone HCl 100 Mg Tablet, 200 MG PO HS, (Reported) TAKES 2 (100MG) TABLETS Venlafaxine HCl 150 Mg Cap.er.24h, 150 MG PO DAILY, (Reported) MAURICIO ARORA MEDICAL STUDENT Mar 15, 2017 16:12 KASI OSCAR DO Mar 15, 2017 17:02
[2017-03-15 16:27] LABS: BUN/CREATININE RATIO 17; CALCIUM 9.1 MG/DL (8.5-10.1); CARBON DIOXIDE 26 MMOL/L (21-32); CHLORIDE 107 MMOL/L (98-107); CREATININE SERUM 1.03 MG/DL (0.60-1.30); GFR ESTIMATED > 60; GLUCOSE 194 MG/DL (70-105); POTASSIUM 3.6 MMOL/L (3.6-5.0); SODIUM 143 MMOL/L (135-145)
[2017-03-15] MEDS ORDERED: INFLUENZA TRIvalent 2017-2018 0.5 ML/45 MCG SYR IM ONE (16:45)
[2017-03-15] MEDS ORDERED: oxyCODONE/APAP 5/325MG (PERCOCET 5) TABLET PO PRN (17:00)
[2017-03-15] MEDS ORDERED: APAP 300 MG/CODEINE 30 MG (TYLENOL #3) TAB PO PRN (17:15)
[2017-03-15] MEDS: ALFUZOSIN HCL 10 MG TAB (UROXATRAL) PO SCH (17:23)
[2017-03-15] MEDS: inSUlin ASPART (NovoLOG) 1 UNIT/0.01 ML (CHARGE PER UNIT) SQ SCH (17:23)
[2017-03-15] MEDS: CARISOPRODOL 350 MG (SOMA) TAB PO SCH ×2 (17:23→23:04)
[2017-03-15] MEDS: LACTULOSE SYRUP 10GM/15ML (ENULOSE) 30ML UDC PO SCH (23:03)
[2017-03-15] MEDS: PHENAZOPYRIDINE 100 MG (PYRIDIUM) TABLET PO SCH (23:04)
[2017-03-15] MEDS: ATORVASTATIN 80 MG (LIPITOR) TABLET PO SCH (23:04)
[2017-03-15] MEDS: QUEtiapine 25 MG (SEROquel) TAB IMMEDIATE RELEASE PO SCH (23:04)
[2017-03-15] MEDS: traZODone 100 MG (DESYREL) TAB PO SCH (23:04)
[2017-03-15] MEDS: MIRTAZAPINE 15 MG (REMERON) TAB PO SCH (23:04)
[2017-03-15] MEDS: SINEMET CR 50/200 (CARBIDOPA/LEVODOPA SA) TAB PO SCH (23:05)
[2017-03-15] MEDS: meTOprolol TARTRATE 50 MG (LOPRESSOR) TAB PO SCH (23:05)
[2017-03-15] MEDS: inSUlin DETERMIR 1 UNIT/0.01 ML (LEVEMIR) CHARGE PER UNIT SQ SCH (23:06)
[2017-03-15] MEDS: inSUlin ASPART (NovoLOG) 1 UNIT/0.01 ML (CHARGE PER UNIT) SC SCH (23:07)
[2017-03-16] MEDS: NS IV 1000 ML 1,000 ML IV SCH ×2 (04:00→08:15)
[2017-03-16 04:50] VITALS: BP 122/70
[2017-03-16] MEDS: VENlafaxine XR 75 MG (EFFEXOR XR) CAP PO SCH (07:00)
[2017-03-16] MEDS: inSUlin ASPART (NovoLOG) 1 UNIT/0.01 ML (CHARGE PER UNIT) SC SCH ×4 (07:00→21:42)
[2017-03-16] MEDS: inSUlin ASPART (NovoLOG) 1 UNIT/0.01 ML (CHARGE PER UNIT) SQ SCH ×3 (07:00→18:25)
[2017-03-16 07:16] LABS: BASOPHILS % (AUTO) 0 % (0-10); EOSINOPHILS # (AUTO) 0.1 10^3/uL (0.0-0.3); EOSINOPHILS % (AUTO) 1 % (0-10); HEMATOCRIT 34 % (40-54); HEMOGLOBIN 11.3 G/DL (13.3-17.7); LYMPHOCYTES # (AUTO) 3.6 X 10^3 (1.0-4.0); LYMPHOCYTES % (AUTO) 32 % (12-44); MEAN CORPUSCULAR HEMOGLOBIN 31 PG (25-34); MEAN CORPUSCULAR HGB CONC 34 G/DL (32-36); MEAN CORPUSCULAR VOLUME 92 FL (80-99); MEAN PLATELET VOLUME 9.6 FL (7.4-10.4); MONOCYTES # (AUTO) 0.8 X 10^3 (0.0-1.0); MONOCYTES % (AUTO) 7 % (0-12); NEUTROPHILS # (AUTO) 6.8 X 10^3 (1.8-7.8); NEUTROPHILS % (AUTO) 60 % (42-75); PLATELET COUNT 267 10^3/uL (130-400); RED BLOOD COUNT 3.66 10^6/uL (4.35-5.85); WHITE BLOOD COUNT 11.3 10^3/uL (4.3-11.0)
[2017-03-16 07:42] LABS: ALANINE AMINOTRANSFERASE 8 U/L (0-55); ALBUMIN 3.2 GM/DL (3.2-4.5); ALKALINE PHOSPHATASE 86 U/L (40-136); BILIRUBIN,TOTAL 0.5 MG/DL (0.1-1.0); BUN/CREATININE RATIO 26; CALCIUM 8.2 MG/DL (8.5-10.1); CARBON DIOXIDE 20 MMOL/L (21-32); CHLORIDE 109 MMOL/L (98-107); CREATININE SERUM 0.85 MG/DL (0.60-1.30); GFR ESTIMATED > 60; GLUCOSE 195 MG/DL (70-105); POTASSIUM 3.6 MMOL/L (3.6-5.0); SODIUM 140 MMOL/L (135-145); TOTAL PROTEIN 5.9 GM/DL (6.4-8.2)
[2017-03-16 08:00] VITALS: BP 90/54
[2017-03-16] MEDS: SINEMET CR 50/200 (CARBIDOPA/LEVODOPA SA) TAB PO SCH ×3 (08:13→21:40)
[2017-03-16] MEDS: CARISOPRODOL 350 MG (SOMA) TAB PO SCH ×4 (08:13→21:41)
[2017-03-16] MEDS: meTOprolol TARTRATE 50 MG (LOPRESSOR) TAB PO SCH ×2 (08:14→21:47)
[2017-03-16] MEDS: ASPIRIN E.C. 81 MG (ECOTRIN) TAB PO SCH (08:14)
[2017-03-16] MEDS: PHENAZOPYRIDINE 100 MG (PYRIDIUM) TABLET PO SCH ×3 (08:14→21:41)
[2017-03-16] MEDS: LACTULOSE SYRUP 10GM/15ML (ENULOSE) 30ML UDC PO SCH ×3 (08:14→21:54)
[2017-03-16] MEDS: amLODIPine 5 MG (NORVASC) TAB PO SCH (08:14)
[2017-03-16] MEDS: lisINopril 20 MG (ZESTRIL) TAB PO SCH (08:14)
[2017-03-16] MEDS ORDERED: ACET-790 PO (11:24)
[2017-03-16] MEDS ORDERED: LISI40TA PO (11:24)
[2017-03-16 12:00] VITALS: BP 113/55
[2017-03-16 15:28] VITALS: BP 119/59
--- NOTE | 2017-03-16 15:43 | Progress Note-Hospitalist ---
Subjective HPI/CC On Admission Date Seen by Provider: Mar 16, 2017 Time Seen by Provider: 09:00 Subjective/Events-last exam Pt reports feeling well. When asked about what happened from the time he was discharged to the time of admission he states he has no recollection. He ultimately reports he would be willing to go to nursing facility for care due to his inability to care for himself. Objective Exam Vital Signs Vital Sign - Last 12Hours 03/15/17 11:30 Temp 95.8 Pulse 105 Resp 18 B/P (MAP) 138/92 (107) Pulse Ox 97 Capillary Refill : Less Than 3 Seconds General Appearance: No Apparent Distress, WD/WN Respiratory: Lungs Clear, No Respiratory Distress Cardiovascular: Regular Rate, Rhythm, No Murmur Gastrointestinal: Non Tender, Soft Neurologic/Psychiatric: Alert, Other (flat affect, oriented but poor short term recall) Results/Procedures Lab Laboratory Tests 03/15/17 16:00 03/16/17 07:03 Assessment/Plan Assessment and Plan Assess & Plan/Chief Complaint IDDMII Dementia Chronic debility- no longer able to live at home patient in agreement for long term facility placement for skilled care Hypertension Severe depression previously [facility] unit admission on 03/13 Chronic back pain Substance abuse Plan: Off insulin gtt since yesterday, maintain on home bolus regimen Needs long term placement, social work consulted- appreciate assistance with placement SW has discussed with brother and informed them of the process of gaining guardianship through the court SUSHIL NEGRO MD Mar 16, 2017 3:43 pm
[2017-03-16] MEDS: ALFUZOSIN HCL 10 MG TAB (UROXATRAL) PO SCH (18:25)
[2017-03-16 20:46] VITALS: BP 115/58
[2017-03-16] MEDS: MIRTAZAPINE 15 MG (REMERON) TAB PO SCH (21:41)
[2017-03-16] MEDS: QUEtiapine 25 MG (SEROquel) TAB IMMEDIATE RELEASE PO SCH (21:41)
[2017-03-16] MEDS: ATORVASTATIN 80 MG (LIPITOR) TABLET PO SCH (21:41)
[2017-03-16] MEDS: traZODone 100 MG (DESYREL) TAB PO SCH (21:41)
[2017-03-16] MEDS: inSUlin DETERMIR 1 UNIT/0.01 ML (LEVEMIR) CHARGE PER UNIT SQ SCH (21:42)
[2017-03-16 21:43] VITALS: BP 130/70
[2017-03-17 00:25] VITALS: BP 101/50
[2017-03-17 04:14] VITALS: BP 121/60
[2017-03-17] MEDS: VENlafaxine XR 75 MG (EFFEXOR XR) CAP PO SCH (06:22)
[2017-03-17] MEDS: inSUlin ASPART (NovoLOG) 1 UNIT/0.01 ML (CHARGE PER UNIT) SQ SCH ×2 (06:23→11:53)
[2017-03-17] MEDS: inSUlin ASPART (NovoLOG) 1 UNIT/0.01 ML (CHARGE PER UNIT) SC SCH ×2 (06:23→11:53)
[2017-03-17 08:00] VITALS: BP 139/65
[2017-03-17] MEDS: SINEMET CR 50/200 (CARBIDOPA/LEVODOPA SA) TAB PO SCH ×2 (09:39→13:22)
[2017-03-17] MEDS: ASPIRIN E.C. 81 MG (ECOTRIN) TAB PO SCH (09:39)
[2017-03-17] MEDS: lisINopril 20 MG (ZESTRIL) TAB PO SCH (09:39)
[2017-03-17] MEDS: LACTULOSE SYRUP 10GM/15ML (ENULOSE) 30ML UDC PO SCH (09:39)
[2017-03-17] MEDS: meTOprolol TARTRATE 50 MG (LOPRESSOR) TAB PO SCH (09:39)
[2017-03-17] MEDS: PHENAZOPYRIDINE 100 MG (PYRIDIUM) TABLET PO SCH ×2 (09:39→13:22)
[2017-03-17] MEDS: amLODIPine 5 MG (NORVASC) TAB PO SCH (09:39)
[2017-03-17] MEDS: CARISOPRODOL 350 MG (SOMA) TAB PO SCH ×2 (09:44→13:22)
--- NOTE | 2017-03-17 09:50 | Discharge Inst-Skilled Nursing ---
Discharge Inst-Skilled NF Consult/Follow Up/Orders Skilled NF Admit to: [facility] Certification (SNF) I certify that SNF services are required to be given on an inpatient basis because of the above named patient's need for detention care on a continuing basis for the conditions(s) for which he/she was receiving inpatient hospital services prior to his/her transfer to the SNF. Prison Facility Order: Nursing Services, Pain Management Specialist-Evaluate & Treat, Physical Therapy-Evaluate & Treat, Speech Language-Evaluate & Treat Discharge Diet: Cardiac Diet New & Resume Previous Orders Sushil Lux Mar 17, 2017 09:50 Pneu Vac Indicated: Yes SUSHIL LUX MD Mar 17, 2017 09:50
[2017-03-17 12:00] VITALS: BP 150/69
--- NOTE | 2017-03-17 12:26 | Discharge Summary-Hospitalist ---
Diagnosis/Chief Complaint Date of Admission Mar 15, 2017 at 12:30 Date of Discharge Discharge Date: Mar 17, 2017 Admission Diagnosis DKA Chronic debilitating no longer able to live at home patient in agreement for detention facility placement for skilled care Hypertension Severe depression previously [facility] admission just discharged 2 days ago Chronic back pain Discharge Diagnosis IDDMII Dementia Chronic debility- no longer able to live at home patient in agreement for detention facility placement for skilled care Hypertension Severe depression previously [facility] admission on 03/13 Chronic back pain Substance abuse Plan: Off insulin gtt since yesterday, maintain on home bolus regimen Needs detention placement, social work consulted- appreciate assistance with placement SW has discussed with brother and informed them of the process of gaining guardianship through the court Discharge Summary Discharge Physical Examination Allergies: Coded Allergies: metformin (Verified Allergy, Unknown, 10/22/14) Vitals & I&Os Vital Signs Date Time Temp Pulse Resp B/P (MAP) Pulse Ox O2 Delivery O2 Flow Rate FiO2 03/17/17 09:00 Room Air 03/17/17 08:00 99.5 76 16 139/65 (89) 95 Hospital Course Pt was admitted for DKA after discharge to home from [place] [facility] after he refused admission to detention. He was initially started on a insulin gtt but was quickly transition to his home regimen. He reports he did not take any of his medications while he was at home but is unable to provide any other details. He is now agreeable to detention placement and will be DC to [facility]. Labs (last 24 hrs) Laboratory Tests 03/16/17 17:44: Glucometer 241H 03/16/17 20:51: Glucometer 295H 03/17/17 05:29: Glucometer 198H 03/17/17 11:39: Glucometer 240H Pending Labs Laboratory Tests 03/17/17 05:29: Glucometer 198 03/17/17 11:39: Glucometer 240 Discharge Home Medications: Active Scripts Active Tylenol with Codeine #4 Tablet (Acetaminophen with Codeine) 1 Each Tablet 1 Tab PO BID PRN Lisinopril 40 Mg Tablet 40 Mg PO DAILY Norvasc (Amlodipine Besylate) 5 Mg Tablet 5 Mg PO DAILY 30 Days Metoprolol Tartrate 50 Mg Tablet 50 Mg PO BID 30 Days Novolog (Insulin Aspart) 100 Unit/1 Ml Susp 10 Unit SQ AC 30 Days Reported Lactulose 20 Gm/30 Ml Solution 20 Gm PO BID Seroquel (Quetiapine Fumarate) 25 Mg Tablet 50 Mg PO HS Pyridium (Phenazopyridine HCl) 100 Mg Tablet 100 Mg PO TID Levemir Flextouch (Insulin Detemir) 100 Unit/1 Ml Insuln.pen 30 Unit SQ HS Venlafaxine HCl ER (Venlafaxine HCl) 150 Mg Cap.er.24h 150 Mg PO DAILY Trazodone HCl 100 Mg Tablet 200 Mg PO HS TAKES 2 (100MG) TABLETS Mirtazapine 15 Mg Tablet 15 Mg PO HS Carisoprodol 350 Mg Tablet 350 Mg PO QID Carbidopa-Levo ER 50-200 Tab (Carbidopa/Levodopa) 1 Each Tablet.er 1 Tab PO TID Flomax (Tamsulosin HCl) 0.4 Mg Cap 0.4 Mg PO DAILY Aspirin EC (Aspirin) 81 Mg Tablet.dr 81 Mg PO DAILY Lipitor (Atorvastatin Calcium) 80 Mg Tablet 80 Mg PO HS Instructions to patient/family Please see electronic discharge instructions given to patient. Clinical Quality Measures DVT/VTE Risk/Contraindication: Risk Factor Score Per Nursin RFS Level Per Nursing on Admit: 3=High SUSHIL NEGRO MD Mar 17, 2017 12:26
[2017-03-17 13:45] VITALS: BP 150/69
== END 2017-03-17 15:00 | DRG 638 ==
LOC: EDUNIT# 11:30 → ER 11:32 → ICU 12:30 → 4TH 18:09
PROVIDERS: ADMIT Family Medicine; ATTEND Family Medicine
DX: E11.10 Type 2 diabetes mellitus with ketoacidosis without coma (principal); I95.9 Hypotension, unspecified; E86.0 Dehydration; F32.3 Major depressive disorder, single episode, severe with psychotic features; E83.42 Hypomagnesemia; T42.4X5A Adverse effect of benzodiazepines, initial encounter; I10 Essential (primary) hypertension; G20 Parkinson's disease; M54.9 Dorsalgia, unspecified; G89.29 Other chronic pain; E78.00 Pure hypercholesterolemia, unspecified; K58.9 Irritable bowel syndrome, unspecified; M19.91 Primary osteoarthritis, unspecified site; F41.9 Anxiety disorder, unspecified; N42.9 Disorder of prostate, unspecified; F15.10 Other stimulant abuse, uncomplicated; F03.90 Unspecified dementia, unspecified severity, without behavioral disturbance, psychotic disturbance, mood disturbance, and anxiety; R53.81 Other malaise; Z91.19 Patient's noncompliance with other medical treatment and regimen; Z79.4 Long term (current) use of insulin; Z86.73 Personal history of transient ischemic attack (TIA), and cerebral infarction without residual deficits; Z91.5 Personal history of self-harm; Z86.010 Personal history of colon polyps
CPT/HCPCS: 36415; 80048; 80053; 80306; 80320; 81000; 82805; 82962; 83690; 83735; 84443; 85007; 85025; 85027; 85610; 85730; 93041; 96361; 96374; 96375

== ENCOUNTER 2017-05-27 19:39 | Emergency (ER) | payer MEDICARE ==
[~2017-05-27 19:39] MED LIST changes: +INSU100I29 SQ; +LACT20SO2 PO; +PHEN-639 PO; +QUET25TA PO
== END 2017-05-27 19:46 | disposition left against medical advice (07) ==
LOC: EDUNIT# 19:39 → ER 19:41
DX: R52 Pain, unspecified (principal)

== ENCOUNTER 2017-07-22 17:38 | Inpatient (IN) | payer MEDICARE ==
[~2017-07-22] VITALS: Ht 172.7 cm; Wt 78.2 kg
--- NOTE | 2017-07-22 18:32 | ED Back Pain ---
General Chief Complaint: Back Problems Stated Complaint: BACK PAIN Nursing Triage Note: TO ROOM C/O BACK PAINFOR 7 DAYS. NO INJURY Nursing Sepsis Screen: No Definite Risk Source of Information: Patient Exam Limitations: No Limitations History of Present Illness Date Seen by Provider: July 22, 2017 Time Seen by Provider: 18:32 Allergies and Home Medications Allergies Coded Allergies: metformin (Verified Allergy, Unknown, 10/22/14) Home Medications Acetaminophen with Codeine 1 Each Tablet, 1 TAB PO BID PRN for PAIN-MODERATE Prescribed by: SUSHIL NEGRO on 03/16/17 1124 Amlodipine Besylate 5 Mg Tablet, 5 MG PO DAILY Prescribed by: KASI DAVALOS on 03/03/17 1158 Aspirin 81 Mg Tablet.dr, 81 MG PO DAILY, (Reported) Atorvastatin Calcium 80 Mg Tablet, 80 MG PO HS, (Reported) Carbidopa/Levodopa 1 Each Tablet.er, 1 TAB PO TID, (Reported) Carisoprodol 350 Mg Tablet, 350 MG PO QID, (Reported) Insulin Aspart 100 Unit/1 Ml Susp, 10 UNIT SQ AC Prescribed by: KASI DAVALOS on 03/03/17 1150 Insulin Detemir 100 Unit/1 Ml Insuln.pen, 30 UNIT SQ HS, (Reported) Lactulose 20 Gm/30 Ml Solution, 20 GM PO BID, (Reported) Lisinopril 40 Mg Tablet, 40 MG PO DAILY Prescribed by: SUSHIL NEGRO on 03/16/17 1124 Metoprolol Tartrate 50 Mg Tablet, 50 MG PO BID Prescribed by: KASI DAVALOS on 03/03/17 1158 Mirtazapine 15 Mg Tablet, 15 MG PO HS, (Reported) Phenazopyridine HCl 100 Mg Tablet, 100 MG PO TID, (Reported) Quetiapine Fumarate 25 Mg Tablet, 50 MG PO HS, (Reported) Tamsulosin HCl 0.4 Mg Cap, 0.4 MG PO DAILY, (Reported) Trazodone HCl 100 Mg Tablet, 200 MG PO HS, (Reported) TAKES 2 (100MG) TABLETS Venlafaxine HCl 150 Mg Cap.er.24h, 150 MG PO DAILY, (Reported) Past Ntzheer-Nynulm-Abhfql Hx Patient Social History Alcohol Use: Denies Use Recreational Drug Use: Yes (Not since 1990) Drug of Choice: meth Recent Foreign Travel: No Contact w/Someone Who Travel: No Recent Infectious Disease Expo: No Recent Hopitalizations: No Immunizations Up To Date PED Vaccines UTD: Yes Seasonal Allergies Seasonal Allergies: Yes Past Medical History Surgeries: Yes (electroshock therapy, colonoscopy) Respiratory: No Cardiac: No High Cholesterol, Hypertension Neurological: No Parkinson's Disease, Stroke Genitourinary: Yes Prostate Problems, Bladder Infection, UTI-Chronic Gastrointestinal: Yes Polyps, Irritable Bowel Musculoskeletal: Yes Arthritis, Chronic Back Pain Endocrine: Yes Diabetes, Insulin dep HEENT: No Cancer: No Psychosocial: Yes Anxiety, Suicide Attempts, Depression Integumentary: No Blood Disorders: No Family Medical History Alcoholism 19 FATHER Bipass surgery G8 BROTHER Brain cancer 19 MOTHER Diabetes mellitus 19 FATHER Respiratory disorder G8 BROTHER Physical Exam Vital Signs Vital Signs - First Documented 07/22/17 17:45 Temp 98.9 Pulse 94 Resp 18 B/P (MAP) 176/89 (118) O2 Delivery Room Air Capillary Refill : Less Than 3 Seconds Progress/Results/Core Measures Results/Orders Vital Signs/I&O 07/22/17 17:45 Temp 98.9 Pulse 94 Resp 18 B/P (MAP) 176/89 (118) O2 Delivery Room Air Blood Pressure Mean: 118 Departure Departure-Patient Inst. Referrals: KAVON JOHNSON DO (PCP/Family) Primary Care Physician MATTIE ELENA July 22, 2017 18:32
[2017-07-22] MEDS ORDERED: NS IV 1000 ML 1,000 ML IV ONE ×3 (18:46→20:49)
[2017-07-22] MEDS ORDERED: KETOROLAC 30 MG/ML VIAL IVP STA (18:46)
[2017-07-22 18:57] LABS: BASOPHILS % (AUTO) 0 % (0-10); EOSINOPHILS # (AUTO) 0.1 10^3/uL (0.0-0.3); EOSINOPHILS % (AUTO) 1 % (0-10); HEMATOCRIT 36 % (40-54); HEMOGLOBIN 12.6 G/DL (13.3-17.7); LYMPHOCYTES # (AUTO) 2.1 X 10^3 (1.0-4.0); LYMPHOCYTES % (AUTO) 22 % (12-44); MEAN CORPUSCULAR HEMOGLOBIN 30 PG (25-34); MEAN CORPUSCULAR HGB CONC 35 G/DL (32-36); MEAN CORPUSCULAR VOLUME 86 FL (80-99); MEAN PLATELET VOLUME 9.5 FL (7.4-10.4); MONOCYTES # (AUTO) 1.3 X 10^3 (0.0-1.0); MONOCYTES % (AUTO) 13 % (0-12); NEUTROPHILS # (AUTO) 6.2 X 10^3 (1.8-7.8); NEUTROPHILS % (AUTO) 64 % (42-75); PLATELET COUNT 374 10^3/uL (130-400); RED BLOOD COUNT 4.23 10^6/uL (4.35-5.85); RED CELL DISTRIBUTION WIDTH 13.1 % (10.0-14.5); WHITE BLOOD COUNT 9.7 10^3/uL (4.3-11.0)
[2017-07-22 19:08] LABS: BILIRUBIN,URINE NEGATIVE (NEGATIVE); CLARITY,URINE CLEAR; COLOR,URINE YELLOW; GLUCOSE, URINE (UA) 4+ (NEGATIVE); KETONES,URINE NEGATIVE (NEGATIVE); LEUKOCYTE ESTERASE ,URINE NEGATIVE (NEGATIVE); NITRITE,URINE NEGATIVE (NEGATIVE); PH,URINE 5 (5-9); PROTEIN,URINE NEGATIVE (NEGATIVE); UROBILINOGEN,URINE NORMAL (NORMAL)
[2017-07-22 19:18] LABS: SQUAMOUS EPITHELIAL CELL,UR RARE /HPF
[2017-07-22 19:20] LABS: AMPHETAMINE SCREEN, URINE NEGATIVE (NEGATIVE); BARBITURATE SCREEN URINE NEGATIVE (NEGATIVE); BENZODIAZEPINES SCREEN URINE NEGATIVE (NEGATIVE); CANNABINOID SCREEN, URINE NEGATIVE (NEGATIVE); COCAINE SCREEN URINE NEGATIVE (NEGATIVE); METHADONE STAT NEGATIVE (NEGATIVE); METHAMPHETAMINE SCREEN URINE S NEGATIVE (NEGATIVE); OPIATE SCREEN URINE NEGATIVE (NEGATIVE); OXYCODONE STAT NEGATIVE (NEGATIVE); PROPOXYPHENE STAT NEGATIVE (NEGATIVE); TRICYCLIC ANTIDEPRESSANTS SCRE NEGATIVE (NEGATIVE)
[2017-07-22 19:40] LABS: ALBUMIN 3.5 GM/DL (3.2-4.5); BILIRUBIN,TOTAL 0.6 MG/DL (0.1-1.0); CALCIUM 8.1 MG/DL (8.5-10.1); CREATININE SERUM 1.28 MG/DL (0.60-1.30); POTASSIUM 3.7 MMOL/L (3.6-5.0); TOTAL PROTEIN 6.9 GM/DL (6.4-8.2)
--- NOTE | 2017-07-22 19:46 | Diagnostic Imaging Report ---
PROCEDURE: CT abdomen and pelvis without contrast. TECHNIQUE: Multiple contiguous axial images were obtained through the abdomen and pelvis without the use of intravenous contrast. INDICATION: Abdominal pain. COMPARISON: None. FINDINGS: The lung bases are clear. Liver, gallbladder, spleen, pancreas, adrenal glands, kidneys, vascular structures and small bowel are normal. The appendix is slightly dilated measuring up to 9 mm. There is some slight inflammatory change in the mesenteric fat. This could represent a mild acute appendicitis. There is no abscess, free air or free fluid. There is mild constipation throughout the colon without obstruction. There are a few diverticuli of the sigmoid colon without diverticulitis. There is slight prostate enlargement. Distal ureters and urinary bladder are normal. Osseous structures are age-appropriate. IMPRESSION: 1. Likely mild acute appendicitis. 2. Constipation without obstruction or ileus. 3. Slight prostate enlargement. 4. Minimal diverticulosis of the sigmoid colon without diverticulitis. Dictated by: Dictated on workstation # [id number]
--- NOTE | 2017-07-22 19:56 | Diagnostic Imaging Report ---
PROCEDURE: CT lumbar spine without contrast. TECHNIQUE: Multiple contiguous axial images were obtained through the lumbar spine without the use of intravenous contrast. Sagittal and coronal reformations were then performed. INDICATION: Back pain COMPARISON: None FINDINGS: The alignment is normal. There is no subluxation or fracture. Mild diffuse degenerative disc disease and facet joint arthropathy is seen. There is diffuse osteopenia. There is no paraspinous mass. The SI joints and visualized sacrum are unremarkable. IMPRESSION: 1. Mild diffuse degenerative disc disease and facet joint arthropathy 2. Diffuse osteopenia. 3. No traumatic malalignment, fracture or osseous lesion. Dictated by: Dictated on workstation # [id number]
[2017-07-22] MEDS ORDERED: inSUlin (REGULAR) HUMAN 1 UNIT/0.01 ML (CHARGE PER UNIT) IV STA (20:49)
[2017-07-22] MEDS ORDERED: PIPERACILLIN SODIUM/TAZOBACTAM 4.5 GM in D5W 100 ML IVPB 100 ML IV ONE (21:00)
[2017-07-22 22:05] VITALS: BP 146/68
[2017-07-22 22:30] VITALS: BP 146/68
[2017-07-22] MEDS ORDERED: ONDANSETRON 4 MG/2 ML (SDV) Z0FRAN IV PRN (23:15)
--- NOTE | 2017-07-22 23:58 | Progress Note-Pre Operative ---
Pre-Operative Progress Note H&P Reviewed The H&P was reviewed, patient examined and no changes noted. Date Seen by Provider: July 22, 2017 Time Seen by Provider: 11:55 Date H&P Reviewed: July 22, 2017 Time H&P Reviewed: 11:55 Pre-Operative Diagnosis: acute appendicitis ESTRADA LIZARRAGA MD July 22, 2017 11:58 pm
[2017-07-23] VITALS (8 sets, daily range): BP systolic 145–183; BP diastolic 68–90
[2017-07-23] MEDS: PIPERACILLIN/TAZO 4.5 GM/D5W 100 ML IVPB IV SCH ×6 (00:07→17:09)
[2017-07-23] MEDS: meTOprolol 5 MG/5 ML (LOPRESSOR) VIAL IV SCH ×5 (00:07→23:26)
[2017-07-23] MEDS: NS W/KCL 20 MEQ/L 1,000 ML IV SCH ×3 (00:09→12:51)
[2017-07-23] MEDS: morphine INJ 4 MG/ML 1 ML (VIAL/SYRINGE) IV PRN ×3 (04:19→23:26)
[2017-07-23 05:14] LABS: BASOPHILS % (AUTO) 0 % (0-10); EOSINOPHILS # (AUTO) 0.1 10^3/uL (0.0-0.3); EOSINOPHILS % (AUTO) 2 % (0-10); HEMATOCRIT 33 % (40-54); HEMOGLOBIN 11.2 G/DL (13.3-17.7); LYMPHOCYTES # (AUTO) 2.3 X 10^3 (1.0-4.0); LYMPHOCYTES % (AUTO) 33 % (12-44); MEAN CORPUSCULAR HEMOGLOBIN 30 PG (25-34); MEAN CORPUSCULAR HGB CONC 34 G/DL (32-36); MEAN CORPUSCULAR VOLUME 87 FL (80-99); MEAN PLATELET VOLUME 9.8 FL (7.4-10.4); MONOCYTES # (AUTO) 0.9 X 10^3 (0.0-1.0); MONOCYTES % (AUTO) 12 % (0-12); NEUTROPHILS # (AUTO) 3.7 X 10^3 (1.8-7.8); NEUTROPHILS % (AUTO) 53 % (42-75); PLATELET COUNT 258 10^3/uL (130-400); RED BLOOD COUNT 3.79 10^6/uL (4.35-5.85); RED CELL DISTRIBUTION WIDTH 13.5 % (10.0-14.5)
[2017-07-23 05:29] LABS: ALANINE AMINOTRANSFERASE 23 U/L (0-55); ALKALINE PHOSPHATASE 80 U/L (40-136); BILIRUBIN,TOTAL 0.6 MG/DL (0.1-1.0); BUN/CREATININE RATIO 9; CALCIUM 7.3 MG/DL (8.5-10.1); CARBON DIOXIDE 20 MMOL/L (21-32); CHLORIDE 105 MMOL/L (98-107); CREATININE SERUM 0.97 MG/DL (0.60-1.30); GFR ESTIMATED > 60; SODIUM 135 MMOL/L (135-145); TOTAL PROTEIN 5.6 GM/DL (6.4-8.2)
[2017-07-23] MEDS ORDERED: NITROGLYCERIN 2% OINT 1 GM UNIT DOSE PACKET TOP PRN (05:45)
[2017-07-23 05:47] LABS: GLUCOSE 442 MG/DL (70-105)
[2017-07-23] MEDS: inSUlin ASPART (NovoLOG) 1 UNIT/0.01 ML (CHARGE PER UNIT) SC SCH ×5 (05:55→21:18)
[2017-07-23] MEDS ORDERED: BUP/EPI 0.5% 1:200,000 (SENSORCAINE) 30 ML VIAL ONE (08:29)
[2017-07-23] MEDS ORDERED: fentaNYL INJECTION 100 MCG/2 ML AMP ONE (08:45)
[2017-07-23] MEDS ORDERED: MIDAZOLAM 2 MG/2 ML (VERSED) VIAL ONE (08:48)
[2017-07-23] MEDS ORDERED: morphine INJ 10 MG/ML 1ML (SYR OR VIAL) ONE (10:12)
[2017-07-23] MEDS ORDERED: MEPERIDINE (DEMEROL) INJ 50 MG/ML ONE (10:13)
[2017-07-23] MEDS ORDERED: proPOfol 200 MG/20 ML (DIPRIVAN) VIAL IV ONE (10:39)
[2017-07-23] MEDS ORDERED: ROCURONIUM 10 MG/ML 5 ML SYRINGE IV ONE (10:39)
[2017-07-23] MEDS ORDERED: ONDANSETRON 4 MG/2 ML (SDV) Z0FRAN ONE (10:39)
[2017-07-23] MEDS ORDERED: LIDOCAINE PF 2% 5 ML (XYLOCAINE) VIAL ONE (10:39)
[2017-07-23] MEDS ORDERED: SEVOFLURANE (ULTANE) 15 ML INHAL SOLN ONE ×3 (10:39→11:23)
[2017-07-23] MEDS ORDERED: LACTATED RINGERS 1,000 ML IV SCH (10:45)
[2017-07-23] MEDS ORDERED: LABETALOL HCL 20 MG/4 ML VIAL ONE ×2 (10:48→11:39)
[2017-07-23] MEDS ORDERED: ATROPINE INJ 0.4 MG/ML SDV ONE (10:48)
[2017-07-23] MEDS ORDERED: ONDANSETRON 4 MG/2 ML (SDV) Z0FRAN IVP PRN (11:00)
[2017-07-23] MEDS ORDERED: MEPERIDINE (DEMEROL) INJ 50 MG/ML IVP PRN (11:00)
--- NOTE | 2017-07-23 11:11 | Progress Note-Post Operative ---
Post-Operative Progess Note Surgeon (s)/Fabric Coating Supervisor (s) Surgeon ESTRADA LIZARRAGA MD Fabric Coating Supervisor: adolfo koehler GRADE SETTER Pre-Operative Diagnosis acute appendicitis Post-Operative Diagnosis same Procedure & Operative Findings Date of Procedure 07/23/17 Procedure Performed/Findings laparoscopic appendectomy Anesthesia Type GET Estimated Blood Loss Estimated blood loss (mL): minimal Specimens/Packing Specimens Removed appendix ESTRADA LIZARRAGA MD July 23, 2017 11:11 am
[2017-07-23] MEDS ORDERED: HYDR-3812 PO (11:13)
--- NOTE | 2017-07-23 11:14 | Discharge Inst-Surgical ---
D/C Lap Instructions-ELHAM New, Converted, or Re-Newed RX: RX on Chart Follow Up Appt in 2 weeks Activity as tolerated No driving for 24 hours No driving while on pain medications Incentive Spirometry use every 2 hours while awake Regular Diet Symptoms to Report: Fever over 101 degree F, Nausea/Vomiting Infection Signs and Symptoms to report: Increased redness, Foul odor of wound, Increased drainage Bathing instructions: May shower Operative Area Clean/Dry; Keep incision clean/dry If any problems/questions: Contact your physician or go to Emergency Room ESTRADA LIZARRAGA MD July 23, 2017 11:13 am
[2017-07-23] MEDS: morphine INJ 10 MG/ML 1ML (SYR OR VIAL) IVP PRN ×2 (11:20→11:25)
--- NOTE | 2017-07-23 12:22 | HISTORY AND PHYSICAL ---
DATE OF SERVICE: ATTENDING PRIMARY CARE PHYSICIAN: Edvin Leon DO. HISTORY OF PRESENT ILLNESS: The patient is a 76-year-old male, who presented to the Emergency Department with lower quadrant abdominal pain as well as confusion. He has had multiple issues with confusion as well as medical noncompliance in the past. He is a diabetic and has been noncompliant with medications and developed significant hyperglycemia causing confusion and lethargy. He reports that he has had some pain in his back; however, he also reports pain in the lower abdominal quadrants. He was found to be hyperglycemic with a glucose of 600; however, after fluid hydration, this improved significantly. A CT scan was also performed, which did show a dilated appendix consistent with an early acute appendicitis. PAST MEDICAL HISTORY: Diabetes, recurrent urinary tract infection, hypertension, hypercholesterolemia, history of stroke, depression, diabetes, and degenerative joint disease. PAST SURGICAL HISTORY: None known. ALLERGIES: METFORMIN. MEDICATIONS: Amlodipine 5 mg daily, aspirin 81 mg daily, atorvastatin 80 mg daily, carbidopa t.i.d., carisoprodol q.i.d., insulin 10 units q.a.c., detemir insulin 30 units each day at bedtime, lactulose 20 grams b.i.d., lisinopril 40 mg daily, metoprolol 50 mg b.i.d., mirtazapine 15 mg each day at bedtime, phenazopyridine 100 mg t.i.d., quetiapine 25 mg daily, tamsulosin 0.4 mg daily, trazodone 100 mg each day at bedtime, and venlafaxine 150 mg daily. SOCIAL HISTORY: Previous drug use, quit in 1990. Negative alcohol, no smoking. FAMILY HISTORY: Father with diabetes. Brother with coronary artery disease. VITAL SIGNS: Temperature 97.9, blood pressure 155/71, pulse 61, respirations 18, and pulse ox 97% on room air. REVIEW OF SYSTEMS: Well-nourished male, currently in no acute distress. He is not experiencing shortness of breath or difficulty breathing. No chest pain, palpitations, diaphoresis. Mild nausea, no vomiting. History of constipation; however, he takes lactulose for this. He does not report any red blood per rectum nor any dark tarry stools. No fever or chills, no recent inadvertent weight loss. All other review of systems is negative. PHYSICAL EXAMINATION: CHEST: Few scattered rales, rhonchi bilaterally. HEART: Regular, no murmurs. EXTREMITIES: No lower extremity edema, negative Homans sign. HEENT: No scleral icterus. NECK: No cervical lymphadenopathy. ABDOMEN: Soft, nondistended. There is pain in the right lower abdominal quadrant at McBurney point with voluntary guarding, no rebound. SKIN: Warm, dry. LABORATORY DATA: WBC is 7.0, hemoglobin 11.2, hematocrit 33, and platelets 258. Glucose is 168, BUN 9, and creatinine 0.97. ASSESSMENT AND PLAN: A 76-year-old male with early acute appendicitis as well as dehydration and hyperglycemia due to medical noncompliance. After fluid hydration as well as insulin sliding scale, he has improved significantly. It appears that the etiology of his abdominal pain is secondary to an early acute appendicitis. We will proceed with a diagnostic laparoscopy and laparoscopic appendectomy. Job ID: [id number] DocumentID: [id number] Dictated Date: 07/23/2017 09:57:54 Bronzer Date: 07/23/2017 12:21:48 Dictated By: ESTRADA LIZARRAGA MD [facility]
--- NOTE | 2017-07-23 13:00 | Consultation-Hospitalist ---
HPI History of Present Illness: HPI/Chief Complaint Pt is a 76yoCM with a PMH of IDDMII, dementia who presented to the ER with CC of back pain for 5 days. He has dementia at baseline and is a poor historian. He believes his pain started 5-6 days ago but he is not sure. He states he didn' t want to bother his doctor so didn't take anything for it and wasn't seen. He pain worsened last night prompting him to seek evaluation in the ER where he was found to have acute appendicitis. He was admitted to Dr Law for surgical mangement and I am consulted for medical management. He was also found to be very hyperglycemic as well. He states that he thinks it is due to the infection but also reports he doesn't know the last time he took is insulin. He believes he's supposed to take it 4 times a day but is not for sure of his dose and believes it's been days since he last took it. He otherwise has no complaints. Source: patient Exam Limitations: clinical condition Date Seen 07/23/17 Attending Physician Juarez Law MD PCP Edvin Leon DO Referring Physician Thanh Date of Admission July 22, 2017 at 20:52 Home Medications & Allergies Home Medications Reviewed patient Home Medication Reconciliation performed by pharmacy medication reconciliations electrical laboratory technician and/or nursing. Patients Allergies have been reviewed. Allergies Allergies Coded Allergies metformin (Verified Allergy, Unknown, 10/22/14) Past Sbipvdy-Vuarzg-Ijcmje Hx Past Med/Social Hx: Reviewed and Corrections made Patient Social History Employed/Student: retired Alcohol Use: Denies Use Recreational Drug Use: Yes (Not since 1990) Drug of Choice: meth Smoking Status: Former Smoker Physical Abuse Screen: No Sexual Abuse: No Recent Foreign Travel: No Contact w/other who traveled: No Recent Hopitalizations: No Recent Infectious Disease Expo: No Immunizations Up To Date Pediatric: Yes Seasonal Allergies Seasonal Allergies: Yes Past Medical History Cardiac: High Cholesterol, Hypertension Neurological: Parkinson's Disease, Stroke Genitourinary: Prostate Problems, Bladder Infection, UTI-Chronic Gastrointestinal: Polyps, Irritable Bowel Musculoskeletal: Arthritis, Chronic Back Pain Endocrine: Diabetes, Insulin dep Hearing Impairment: Hard of Hearing Psychosocial: Anxiety, Suicide Attempts, Depression History of Blood Disorders: No Family History Reviewed Nursing Family Hx Alcoholism 19 FATHER Bipass surgery G8 BROTHER Brain cancer 19 MOTHER Diabetes mellitus 19 FATHER Respiratory disorder G8 BROTHER Review of Systems Constitutional: no symptoms reported EENTM: no symptoms reported Respiratory: no symptoms reported Cardiovascular: no symptoms reported Gastrointestinal: no symptoms reported Genitourinary: no symptoms reported Musculoskeletal: back pain Skin: no symptoms reported Psychiatric/Neurological: Tremors All Other Systems Reviewed Negative Unless Noted: Yes Physical Exam Physical Exam Vital Signs Vital Signs - First Documented 07/22/17 07/22/17 17:45 21:55 Temp 98.9 Pulse 94 Resp 18 B/P (MAP) 176/89 (118) Pulse Ox 98 O2 Delivery Room Air Capillary Refill : NONELess Than 3 Seconds General Appearance: No Apparent Distress, Chronically ill Neck: Normal Inspection, Supple; No JVD, No Thyromegaly Respiratory: Lungs Clear, No Respiratory Distress Cardiovascular: Regular Rate, Rhythm, No Murmur Gastrointestinal: Soft, Abnormal Bowel Sounds (quiet); No Guarding; Tenderness (mild-appropriate) Extremity: No Calf Tenderness, No Pedal Edema Neurologic/Psychiatric: Alert, No Motor/Sensory Deficits, Other (oriented to self and place) Skin: Warm/Dry, Pallor Results Results/Procedures Labs Laboratory Tests 07/22/17 18:51 07/23/17 04:54 Patient resulted labs reviewed. Imaging: Reviewed Imaging Report Imaging Date of Exam: 07/22/17 CT LUMBAR SPINE WO PROCEDURE: CT lumbar spine without contrast. TECHNIQUE: Multiple contiguous axial images were obtained through the lumbar spine without the use of intravenous contrast. Sagittal and coronal reformations were then performed. INDICATION: Back pain COMPARISON: None FINDINGS: The alignment is normal. There is no subluxation or fracture. Mild diffuse degenerative disc disease and facet joint arthropathy is seen. There is diffuse osteopenia. There is no paraspinous mass. The SI joints and visualized sacrum are unremarkable. IMPRESSION: 1. Mild diffuse degenerative disc disease and facet joint arthropathy 2. Diffuse osteopenia. 3. No traumatic malalignment, fracture or osseous lesion. Date of Exam: 07/22/17 CT ABDOMEN/PELVIS WO PROCEDURE: CT abdomen and pelvis without contrast. TECHNIQUE: Multiple contiguous axial images were obtained through the abdomen and pelvis without the use of intravenous contrast. INDICATION: Abdominal pain. COMPARISON: None. FINDINGS: The lung bases are clear. Liver, gallbladder, spleen, pancreas, adrenal glands, kidneys, vascular structures and small bowel are normal. The appendix is slightly dilated measuring up to 9 mm. There is some slight inflammatory change in the mesenteric fat. This could represent a mild acute appendicitis. There is no abscess, free air or free fluid. There is mild constipation throughout the colon without obstruction. There are a few diverticuli of the sigmoid colon without diverticulitis. There is slight prostate enlargement. Distal ureters and urinary bladder are normal. Osseous structures are age-appropriate. IMPRESSION: 1. Likely mild acute appendicitis. 2. Constipation without obstruction or ileus. 3. Slight prostate enlargement. 4. Minimal diverticulosis of the sigmoid colon without diverticulitis. Assessment/Plan Assessment and Plan Assess & Plan/Chief Complaint Acute appendicitis Diagnosis/Problems Diagnosis/Problems (1) Acute appendicitis Assessment & Plan: Management per primary POD #0 Continue current pain regimen Diet per primary but prefer Carb Controlled when able to have diet Continue Zosyn Qualifiers: Acute appendicitis type: unspecified acute appendicitis type Qualified Codes: K35.80 - Unspecified acute appendicitis (2) Insulin dependent diabetes mellitus Assessment & Plan: Severely hyperglycemic on arrival but no evidence of DKA or HHS Very sensitive to insulin so will decrease to SSI A and start Levemir 10U QHS Per med rec was on 30 units Levemir QHS and 10 units Novolog with meals but nothing in claim history Attempt to get adequate control with basal insulin if able and may be able to forgo prandial (3) Parkinson disease Assessment & Plan: Dementia as baseline Previously there had been concerns about capacity to make his own medical decisions Assessment of capacity clouded today by examing immediately postoperative Will consult speech therapy for formal cognitive eval, appreciate assistance Will consult for tomorrow to assist with placement if needed at OR From current history sounds like placement will be necessary but patient has previously signed himself out from half-way (4) Essential (primary) hypertension Assessment & Plan: BP elevated overnight Nitro paste added Continue Lopressor but monitor for bracycardia Clinical Quality Measures DVT/VTE Risk/Contraindication: Risk Factor Score Per Nursin RFS Level Per Nursing on Admit: 3=High SUSHIL NEGRO MD July 23, 2017 13:00
[2017-07-23] MEDS ORDERED: ANTACID SUSP 30 ML UDC (MYLANTA) PO PRN (13:15)
[2017-07-23] MEDS ORDERED: ACETAMINOPHEN 325 MG TABLET/CAPLET (TYLENOL) PO PRN (13:15)
[2017-07-23] MEDS ORDERED: MILK OF MAGNESIA 400 MG/5 ML 30 ML UDC PO PRN (13:15)
--- NOTE | 2017-07-23 18:10 | OPERATIVE REPORT ---
DATE OF SERVICE: 07/23/2017 ATTENDING PRIMARY CARE PHYSICIAN: Dr. Edvin Leon. PREOPERATIVE DIAGNOSIS: Acute appendicitis. POSTOPERATIVE DIAGNOSIS: Acute appendicitis. PROCEDURE: Laparoscopic appendectomy. SURGEON: Dr. Lizarraga. RADIO ASSEMBLER: Suhas Katz APRN. ANESTHESIA: General endotracheal. ESTIMATED BLOOD LOSS: Minimal. FINDINGS: Chronically inflamed appendix. No perforation identified. DISPOSITION: The patient tolerated the procedure well. INDICATIONS: The patient is a 76-year-old male with history of insulin-dependent diabetes as well as other medical problems. Due to medical noncompliance as well as forgetfulness, he does forget to take his medications and does have frequent episodes of hyperglycemia. After IV fluids as well as insulin, this usually resolves. This time around, he did report similar sequence of events; however, did develop pain in the lower abdominal quadrants. A CT scan was performed which did show dilated appendix consistent with an early acute appendicitis. Upon examination, he also had pain at McBurney's point. DESCRIPTION OF PROCEDURE: The patient was brought to the operating room, laid supine on the table. After adequate IV pain and sedating medications and general endotracheal intubation, the abdomen was prepped and draped in standard surgical fashion. A 0.5% Marcaine with epinephrine was then used to anesthetize the overlying skin in the left upper abdominal quadrant and a small transverse skin incision made using a 15 blade. An 0 silk suture was applied to the medial aspect of the incision for retraction and a Veress needle inserted with a low opening pressure of 0 mmHg. The abdomen was then insufflated to 15 mmHg pressure. The Veress needle removed and a 5 mm Xcel trocar placed followed by a 5 mm 45 degree angle laparoscope visualizing the peritoneal cavity. A 4-quadrant abdominal exploration was performed. Liver, omentum, small bowel, colon appeared normal. The appendix was dilated and slightly edematous, which appeared to be consistent with acute on chronic appendicitis; however, no perforation identified. Under direct visualization, a supraumbilical 10 mm port was placed after the skin and peritoneal lining were anesthetized using 0.5% Marcaine with epinephrine. A transverse skin incision made using a 15 blade. In a similar manner, a suprapubic 5 mm port was placed. The patient was then placed in Trendelenburg position as well as planed right side up, left side down. The appendix was retracted towards the anterior abdominal wall. Peritoneal reflection was attached. The appendix was taken down using electrocautery on the hook instrument. A window was then created between the base of the appendix and the mesoappendix using a [place] dissector. The appendix was then stapled and transected at its base using a BELEN 45 stapler with a 2.5 mm thickness load. The mesoappendix was then stapled and transected with the same stapler with a 2.0 thickness reload. Good hemostasis was observed. The appendix was removed through the 10 mm port site using an EndoCatch bag. The 10 mm port fascia and peritoneum were then closed under direct visualization using Nelson-Maykel device and 0 Vicryl suture. The abdomen was desufflated. The remaining ports removed. All skin incisions were closed using 4-0 Monocryl running subcuticular sutures. Wounds were then cleaned and covered with Dermabond. The patient tolerated the procedure well. We will start IV and oral pain medication as well as a clear liquid diet and advance to an 1800 kilocalorie diabetic diet. Once medically cleared and tolerating a diet and has adequate pain control, he may be discharged home. Job ID: [id number] DocumentID: [id number] Dictated Date: 07/23/2017 11:19:25 Glassine Machine Tender Date: 07/23/2017 18:10:10 Dictated By: ESTRADA LIZARRAGA MD [facility]
[2017-07-24] MEDS: PIPERACILLIN/TAZO 4.5 GM/D5W 100 ML IVPB IV SCH ×6 (00:14→18:11)
[2017-07-24 00:30] VITALS: BP 169/74
[2017-07-24] MEDS: morphine INJ 4 MG/ML 1 ML (VIAL/SYRINGE) IV PRN ×2 (03:35→05:38)
[2017-07-24 04:04] LABS: BASOPHILS % (AUTO) 0 % (0-10); EOSINOPHILS # (AUTO) 0.1 10^3/uL (0.0-0.3); EOSINOPHILS % (AUTO) 2 % (0-10); HEMATOCRIT 35 % (40-54); HEMOGLOBIN 11.7 G/DL (13.3-17.7); LYMPHOCYTES # (AUTO) 1.8 X 10^3 (1.0-4.0); LYMPHOCYTES % (AUTO) 24 % (12-44); MEAN CORPUSCULAR HEMOGLOBIN 29 PG (25-34); MEAN CORPUSCULAR HGB CONC 33 G/DL (32-36); MEAN CORPUSCULAR VOLUME 89 FL (80-99); MEAN PLATELET VOLUME 9.8 FL (7.4-10.4); MONOCYTES # (AUTO) 0.7 X 10^3 (0.0-1.0); MONOCYTES % (AUTO) 10 % (0-12); NEUTROPHILS # (AUTO) 4.8 X 10^3 (1.8-7.8); NEUTROPHILS % (AUTO) 64 % (42-75); PLATELET COUNT 326 10^3/uL (130-400); RED BLOOD COUNT 3.98 10^6/uL (4.35-5.85); RED CELL DISTRIBUTION WIDTH 13.5 % (10.0-14.5); WHITE BLOOD COUNT 7.5 10^3/uL (4.3-11.0)
[2017-07-24 04:21] LABS: BUN/CREATININE RATIO 8; CALCIUM 7.6 MG/DL (8.5-10.1); CARBON DIOXIDE 22 MMOL/L (21-32); CHLORIDE 104 MMOL/L (98-107); CREATININE SERUM 0.88 MG/DL (0.60-1.30); GFR ESTIMATED > 60; GLUCOSE 316 MG/DL (70-105); POTASSIUM 3.7 MMOL/L (3.6-5.0); SODIUM 137 MMOL/L (135-145)
[2017-07-24 04:29] VITALS: BP 167/77
[2017-07-24] MEDS: inSUlin ASPART (NovoLOG) 1 UNIT/0.01 ML (CHARGE PER UNIT) SC SCH ×4 (05:38→21:21)
[2017-07-24] MEDS: meTOprolol 5 MG/5 ML (LOPRESSOR) VIAL IV SCH ×2 (05:38→13:31)
--- NOTE | 2017-07-24 08:17 | Anesthesia-General Post-Op ---
General Patient Condition Mental Status/LOC: Same as Preop Cardiovascular: Satisfactory Nausea/Vomiting: Absent Respiratory: Satisfactory Pain: Controlled Complications: Absent Post Op Complications Complications None Follow Up Care/Instructions Patient Instructions None needed. Anesthesia/Patient Condition Patient Condition Patient is doing well, no complaints, stable vital signs, no apparent adverse anesthesia problems. No complications reported per nursing. AYLA GODOY CRNA July 24, 2017 08:17
[2017-07-24 08:37] VITALS: BP 172/70
--- NOTE | 2017-07-24 11:11 | ST Cognitive Linguistic Eval ---
Speech Evaluation-General Medical Diagnosis Appendicitis, Hyperglycemia Onset Date: July 22, 2017 Therapy Diagnosis Therapy Diagnosis: Minimal to Mild Cognitive Impairment Precautions Precautions/Isolations: Standard Precautions Referral Referring Physician: Dr. Yara Lux Reason for Referral: Evaluation/Treatment Cognitive Evaluation Medical History Pertinent Medical History: Arthritis, CVA, DM, HTN, Parkinson's Current History The patient was recently admitted with a diagnosis of appendicitis with altered mental status/confusion. Speech PLF-Current Status Prior Level of Function The patient reported baseline memory impairments stating, "Like if I go into a room and place my keys somewhere, I can't always remember where I put my keys. I am getting ready to turn 77 here in a week or so, I feel that may just come with the age." The patient denied additional cognitive challenges to this clinician. Subjective The patient was seated upright in bed upon entrance. The patient greeted the clinician appropriately and was agreeable to participation in the cognitive assessment. Language Eval: Auditory Comprehends Simple Yes/No Ques: Functional Indent/Objects Multiple English: Functional Ident/Pics in Multiple English: Functional Follows 1-Step Commands: Functional Follows Complex Directions: Moderate (Frequent repetition of more complex instructions were required (trail-making, clock drawing).) Follows General Conversations: Mild Language Eval: Verbal Language Completes Spontaneous Greeting: Functional Produces Auto, Serial Info: Functional Imitates Simple Words/Phrases: Mild (Repetition of short phrases was required for increased accuracy. Per patient, "I have an attention problem. I don't always attend when I should.") Word Finding: Moderate (The patient was able to state three words that began with a "S" within a one minute duration.) Requests Basic Needs: Functional States Basic Personal Info: Functional Language Evaluation: Reading Comprehends Single Nouns: Functional Follows Simple Written Direct: Functional Language Evaluation: Writing Copies/Traces: Functional Writes to Simple Dictation: Functional Writes Personal Information: Functional Cognitive Patient Orientation The patient was independently oriented to name, location, city, month, day of week, date, and year. Objective Cognitive Domain Attention: Moderate Memory: Moderate Problem Solving: Mild (The patient's reduced problem solving appeared directly related to his reduced ability to sustain to a topic in the absence of cues.) Executive Functions: WNL Visuospatial Skills: WNL Clock Drawing Severity Rating: WNL Objective Formal/Standardized Tests The [place] Cognitive Assessment (Version Two) Results +25/30 Impression The patient displays a mild cognitive impairment in the areas of attention and memory. With repetition and cues, the patient's attention and memory are improved. The patient displayed a score of +25/30 on the MoCA which correlates to a minimal to mild cognitive impairment. The patient displayed difficulty with recalling five single words following a five minute delay and word-finding. Speech-Plan Treatment Plan Speech Therapy Treatment Plan: Discontinue ST Evaluation, only. Frequency: 1 time per month Estimated Hrs Per Day: Other (Evaluation, only.) Rehab Potential: Guarded Safety Risks/Education Teaching Recipient: Patient Teaching Methods: Discussion Response to Teaching: Verbalize Understanding, Reinforcement Needed Education Topics Provided: Results, Recommendations, Plan of Care Time Speech Therapy Time In: 10:40 Speech Therapy Time Out: 11:00 Total Billed Time: 20 Billed Treatment Time 1, MAGALIE VILLAGRAN July 24, 2017 11:11
[2017-07-24 12:30] VITALS: BP 187/81
[2017-07-24 16:00] VITALS: BP 194/91
[2017-07-24] MEDS ORDERED: [UNRECOGNIZED DRUG - OTHER] PO PRN (17:45)
[2017-07-24] MEDS ORDERED: NON-FORMULARY MEDICATION 1 EA EA (Hydrocodone/Acetaminophen (Hydrocodone-Acetamin 5-325 mg PO SCH (17:45)
[2017-07-24] MEDS ORDERED: ACETAMINOPHEN WITH CODEINE PO PRN (17:45)
--- NOTE | 2017-07-24 19:14 | Progress Note (SOAP) ---
Subjective Date Seen by Provider: July 24, 2017 Time Seen by Provider: 19:00 Subjective/Events-last exam doing well. no abd pain. tolerating regular diet. Objective Exam Vital Signs Date Time Temp Pulse Resp B/P (MAP) Pulse Ox O2 Delivery O2 Flow Rate FiO2 07/24/17 16:00 98.6 76 20 194/91 (125) 96 Room Air 07/24/17 13:00 70 07/24/17 12:30 98.5 78 20 187/81 (116) 96 Room Air 07/24/17 09:00 Room Air 07/24/17 08:37 97.5 73 22 172/70 (104) 96 Room Air 07/24/17 07:00 53 07/24/17 04:29 98.2 60 17 167/77 (107) 97 Room Air 07/24/17 01:00 57 07/24/17 00:30 98.0 65 18 169/74 (105) 96 Room Air 07/23/17 20:02 Room Air 07/23/17 20:00 99.3 59 20 175/79 (111) 94 Room Air I & O 07/24/17 07:00 Intake Total 3220 ml Output Total 2525 ml Balance 695 ml Capillary Refill : Less Than 3 SecondsLess Than 3 Seconds General Appearance: No Apparent Distress HEENT: PERRL/EOMI Neck: Full Range of Motion, Normal Inspection Respiratory: Chest Non Tender, Lungs Clear, Normal Breath Sounds Cardiovascular: Regular Rate, Rhythm Gastrointestinal: normal bowel sounds, soft Extremity: Normal Capillary Refill Neurologic/Psychiatric: Alert, Oriented x3 Skin: Normal Color Lymphatic: No Adenopathy Results Lab Laboratory Tests 07/23/17 21:04: Glucometer 441*H 07/24/17 03:30: White Blood Count 7.5, Red Blood Count 3.98L, Hemoglobin 11.7L, Hematocrit 35L, Mean Corpuscular Volume 89, Mean Corpuscular Hemoglobin 29, Mean Corpuscular Hemoglobin Concent 33, Red Cell Distribution Width 13.5, Platelet Count 326, Mean Platelet Volume 9.8, Neutrophils (%) (Auto) 64, Lymphocytes (%) (Auto) 24, Monocytes (%) (Auto) 10, Eosinophils (%) (Auto) 2, Basophils (%) (Auto) 0, Neutrophils # (Auto) 4.8, Lymphocytes # (Auto) 1.8, Monocytes # (Auto) 0.7, Eosinophils # (Auto) 0.1, Basophils # (Auto) 0.0, Sodium Level 137, Potassium Level 3.7, Chloride Level 104, Carbon Dioxide Level 22, Anion Gap 11, Blood Urea Nitrogen 7, Creatinine 0.88, Estimat Glomerular Filtration Rate > 60, BUN/ Creatinine Ratio 8, Glucose Level 316H, Calcium Level 7.6L 07/24/17 05:27: Glucometer 418*H 07/24/17 11:05: Glucometer 236H 07/24/17 16:16: Glucometer 326H Microbiology 07/22/17 MRSA Screen - Final, Complete Assessment/Plan Assessment/Plan Assess & Plan/Chief Complaint s/p laparoscopic appendectomy. ambulate. continue ADA diet. rehabilitation v. SNF Clinical Quality Measures DVT/VTE Risk/Contraindication: Risk Factor Score Per Nursin RFS Level Per Nursing on Admit: 3=High ESTRADA LIZARRAGA MD July 24, 2017 7:14 pm
[2017-07-24] MEDS ORDERED: HYDROcodone/APAP 5 MG/325 MG (LORTAB) TAB PO PRN (19:15)
[2017-07-24 19:50] VITALS: BP 183/84
[2017-07-24] MEDS: CARISOPRODOL 350 MG (SOMA) TAB PO SCH (20:51)
[2017-07-24] MEDS: meTOprolol TARTRATE 50 MG (LOPRESSOR) TAB PO SCH (20:51)
[2017-07-24] MEDS: SINEMET CR 50/200 (CARBIDOPA/LEVODOPA SA) TAB PO SCH (20:52)
[2017-07-24] MEDS: LACTULOSE SYRUP 10GM/15ML (ENULOSE) 30ML UDC PO SCH (20:57)
[2017-07-24] MEDS ORDERED: inSUlin DETERMIR 1 UNIT/0.01 ML (LEVEMIR) CHARGE PER UNIT SQ SCH (21:00)
[2017-07-24] MEDS ORDERED: NON-FORMULARY MEDICATION 1 EA EA (Carisoprodol 350 MG) PO SCH (21:00)
[2017-07-24] MEDS ORDERED: NON-FORMULARY MEDICATION 1 EA EA (Insulin Detemir (Levemir Flextouch) 30 UNIT) SQ SCH (21:00)
[2017-07-24] MEDS ORDERED: NON-FORMULARY MEDICATION 1 EA EA (Quetiapine Fumarate (Seroquel) 50 MG) PO SCH (21:00)
[2017-07-24] MEDS ORDERED: ATORVASTATIN 80 MG (LIPITOR) TABLET PO SCH (21:00)
[2017-07-24] MEDS ORDERED: NON-FORMULARY MEDICATION 1 EA EA (Atorvastatin Calcium (Lipitor) 80 MG) PO SCH (21:00)
[2017-07-24] MEDS ORDERED: traZODone 100 MG (DESYREL) TAB PO SCH (21:00)
[2017-07-24] MEDS ORDERED: QUEtiapine 25 MG (SEROquel) TAB IMMEDIATE RELEASE PO SCH (21:00)
[2017-07-24] MEDS ORDERED: MIRTAZAPINE 15 MG (REMERON) TAB PO SCH (21:00)
[2017-07-24] MEDS ORDERED: NON-FORMULARY MEDICATION 1 EA EA (Mirtazapine 15 MG) PO SCH (21:00)
[2017-07-24] MEDS ORDERED: NON-FORMULARY MEDICATION 1 EA EA (Lactulose 20 GM) PO SCH (21:00)
[2017-07-24] MEDS: MUPIROCIN 2% OINT 22 GM (BACTROBAN) TUBE TOP SCH (21:21)
[2017-07-25 00:29] VITALS: BP 145/67
[2017-07-25] MEDS: PIPERACILLIN/TAZO 4.5 GM/D5W 100 ML IVPB IV SCH ×4 (00:31→08:28)
[2017-07-25 04:19] VITALS: BP 129/66
[2017-07-25 05:19] VITALS: BP 129/66
[2017-07-25] MEDS: inSUlin ASPART (NovoLOG) 1 UNIT/0.01 ML (CHARGE PER UNIT) SC SCH ×2 (05:53→11:12)
[2017-07-25] MEDS ORDERED: VENlafaxine XR 75 MG (EFFEXOR XR) CAP PO SCH (07:00)
[2017-07-25 08:18] VITALS: BP 133/62
[2017-07-25] MEDS: meTOprolol TARTRATE 50 MG (LOPRESSOR) TAB PO SCH ×2 (08:27→08:39)
[2017-07-25] MEDS: CARISOPRODOL 350 MG (SOMA) TAB PO SCH ×2 (08:27→08:40)
[2017-07-25] MEDS: TAMSULOSIN 0.4 MG (FLOMAX) CAP PO SCH ×2 (08:27→08:39)
[2017-07-25] MEDS: lisINopril 40 MG (PRINIVIL) TABLET PO SCH ×2 (08:27→08:40)
[2017-07-25] MEDS: ASPIRIN E.C. 81 MG (ECOTRIN) TAB PO SCH ×2 (08:27→08:39)
[2017-07-25] MEDS: amLODIPine 5 MG (NORVASC) TAB PO SCH ×2 (08:28→08:40)
[2017-07-25] MEDS: MUPIROCIN 2% OINT 22 GM (BACTROBAN) TUBE TOP SCH (08:28)
[2017-07-25] MEDS: SINEMET CR 50/200 (CARBIDOPA/LEVODOPA SA) TAB PO SCH (08:38)
[2017-07-25] MEDS: LACTULOSE SYRUP 10GM/15ML (ENULOSE) 30ML UDC PO SCH (08:38)
[2017-07-25] MEDS ORDERED: VANCOMYCIN 1,750 MG/NS 500 ML IVPB IV NR ×2 (09:00)
[2017-07-25] MEDS ORDERED: NON-FORMULARY MEDICATION 1 EA EA (Amlodipine Besylate (Norvasc) 5 MG) PO SCH (09:00)
[2017-07-25] MEDS ORDERED: NON-FORMULARY MEDICATION 1 EA EA (Venlafaxine HCl (Venlafaxine HCl ER) 150 MG) PO SCH (09:00)
[2017-07-25] MEDS ORDERED: INSU100V16 SQ ×2 (09:51→10:10)
--- NOTE | 2017-07-25 10:02 | Discharge Inst-Skilled Nursing ---
Discharge Inst-Skilled NF Patient Instructions Goal: Frail patient who appears older than stated age. Just had appendectomy which has thrown him off his rhythm a bit. He has been marginal at self-care for some time now. He has Parkinson's disease and some level of mental health problem as well. He will require PT OT and speech to restore to his previous state. Patient Instructions: In the postoperative period his appetite has been poor and he has had variable blood sugars. This will need to be closely monitored. Consult/Follow Up/Orders Skilled NF Admit to: [facility] Certification (SNF) I certify that SNF services are required to be given on an inpatient basis because of the above named patient's need for prison care on a continuing basis for the conditions(s) for which he/she was receiving inpatient hospital services prior to his/her transfer to the SNF. [facility] Order: Nursing Services, Sliver Lap Tender-Evaluate & Treat, Physical Therapy-Evaluate & Treat, Speech Language-Evaluate & Treat Discharge Diet: ADA Diet Daily Activity as Tolerated: Yes New & Resume Previous Orders Will Miller July 25, 2017 09:58 WILL MILLER MD July 25, 2017 10:02
[2017-07-25] MEDS ORDERED: VANCOMYCIN INJECTION 1,250 MG in NS (IVPB) 250 ML IV SCH (21:00)
[2017-07-26] MEDS ORDERED: TROUGH ORDER-PHARMACY XX NR (20:00)
== END 2017-07-25 12:00 | DRG 343 ==
LOC: EDUNIT# 17:38 → ER 17:40 → 4TH 20:52
PROVIDERS: ADMIT Surgery; ATTEND Surgery
PROC: 0DTJ4ZZ Resection of Appendix, Percutaneous Endoscopic Approach (ICD-10-PCS; principal; 2017-07-23 10:07)
DX: K35.80 Unspecified acute appendicitis (principal); E11.65 Type 2 diabetes mellitus with hyperglycemia; E86.0 Dehydration; I10 Essential (primary) hypertension; G31.83 Neurocognitive disorder with Lewy bodies; F02.80 Dementia in other diseases classified elsewhere, unspecified severity, without behavioral disturbance, psychotic disturbance, mood disturbance, and anxiety; E78.00 Pure hypercholesterolemia, unspecified; F32.9 Major depressive disorder, single episode, unspecified; K59.00 Constipation, unspecified; M19.91 Primary osteoarthritis, unspecified site; M54.9 Dorsalgia, unspecified; F41.9 Anxiety disorder, unspecified; J30.2 Other seasonal allergic rhinitis; N42.9 Disorder of prostate, unspecified; K58.9 Irritable bowel syndrome, unspecified; Z91.14 Patient's other noncompliance with medication regimen; Z79.4 Long term (current) use of insulin; Z86.73 Personal history of transient ischemic attack (TIA), and cerebral infarction without residual deficits; Z87.440 Personal history of urinary (tract) infections; Z91.5 Personal history of self-harm; Z87.891 Personal history of nicotine dependence
CPT/HCPCS: 36415; 72131; 74176; 80048; 80053; 80306; 81000; 82962; 83036; 85025; 87081; 88304; 93005; 96374; 96375

== ENCOUNTER 2017-10-18 23:25 | Emergency (ER) | payer MEDICARE ==
[~2017-10-18] VITALS: Ht 170.2 cm; Wt 77.1 kg
[~2017-10-18 23:25] MED LIST changes: +HYDR-3812 PO; +TRAZ-189 PO; +TRAZ-190 PO; -TRAZ-28 PO; -TRAZ100T92 PO
[2017-10-18 23:55] VITALS: BP 78/54
--- NOTE | 2017-10-19 05:21 | ED General ---
General Chief Complaint: Dizziness/Syncope Stated Complaint: FALL Nursing Triage Note: Patient presented to the ER via EMS secondary to a fall this evening at the [facility]. [facility] staff advised ems that the patient was given two hydrocodones earlier this evening and his pupils are not reacting appropriately and wish for him to be evaluated. See notes for further. Nursing Sepsis Screen: No Definite Risk Source of Information: Patient, EMS, Half-Way Records, Old Records (ALL PMH IS FROM OLD RECORDS, PT LEFT PRIOR TO COMPLETE HISTORY OR EXAM COULD BE DONE) History of Present Illness Date Seen by Provider: Oct 18, 2017 Time Seen by Provider: 23:23 Initial Comments PT ARRIVES VIA EMS FROM [facility] EMS WAS CALLED FOR "FALL" AND "PUPILS WOULDN'T RESPOND" PT HAD BEEN GIVEN 2 HYDROCODONE AT 2100 TONIGHT FOR CHRONIC PAIN EMS REPORT THAT PT IS AWAKE AND ALERT AND PUPILS ARE PINPOINT, EXPECTED WITH RECENT DOSE OF HYDROCODONE--THIS IS WHAT STAFF AT [facility] WERE REFERRING TO WITH "PUPILS WON'T RESPOND" ON QUESTIONING PT, HE REPORTS THAT HE GOT UP TO ADJUST THE AIR CONDITIONING, AND THEN SUDDENLY "EVERYTHING WENT BLANK" THIS EPISODE WAS NOT WITNESSED ON DIRECT QUESTIONING, PT IS ADAMANT THAT HE DID NOT TRIP OR LOSE HIS BALANCE, BUT THAT "EVERYTHING WENT BLANK" C/O PAIN TO BACK AND HEAD PT TAKES 81 MG ASPIRIN DAILY BP 80/42, HR 89, RR 20, O2 SAT 95% ON RA, TEMP 99.3 AND ACCUCHECK 167, PER [facility] RECORD. PT HAD C/O SORE THROAT EARLIER TODAY. BP 78/54 TEMP 100.3 ON ARRIVAL HERE--PT C/O BEING COLD 2335--PT ADAMANTLY REFUSES IV AND ANY AND ALL TESTS. PT DOES NOT APPEAR CONFUSED , AND APPEARS TO UNDERSTAND RISKS OF SIGNING OUT AGAINST MEDICAL ADVICE. PT STRONGLY URGED TO HAVE TESTS, HE HAS FEVER, AND HIS BLOOD PRESSURE IS LOW AND PT AGREES THAT HE PASSED OUT AND DID NOT SIMPLY TRIP OR LOSE BALANCE AND FALL. AMA PAPERS SIGNED AND EMS TRANSPORTED PT BACK TO [facility] PCP: DR. DUDLEY. Allergies and Home Medications Allergies Coded Allergies: metformin (Verified Allergy, Unknown, 10/22/14) Home Medications Acetaminophen with Codeine 1 Each Tablet, 1 TAB PO BID PRN for PAIN-MODERATE Prescribed by: SUSHIL NEGRO on 03/16/17 1124 Amlodipine Besylate 5 Mg Tablet, 5 MG PO DAILY Prescribed by: KASI DAVALOS on 03/03/17 1158 Aspirin 81 Mg Tablet.dr, 81 MG PO DAILY, (Reported) Atorvastatin Calcium 80 Mg Tablet, 80 MG PO HS, (Reported) Carbidopa/Levodopa 1 Each Tablet.er, 1 TAB PO TID, (Reported) Carisoprodol 350 Mg Tablet, 350 MG PO QID, (Reported) Hydrocodone/Acetaminophen 1 Each Tablet, 1-2 EACH PO Q6H Prescribed by: ESTRADA LIZARRAGA on 07/23/17 1113 Insulin Aspart 100 Unit/1 Ml Susp, 10 UNIT SQ AC Hold NovoLog until blood sugars running consistently greater than 200. Speak to his provider at that time relative to adding dose of rapid acting (NovoLog) Prescribed by: WINIFRED MILLER on 07/25/17 0951 Insulin Aspart 100 Unit/1 Ml Susp, 10 UNIT SQ AC Prescribed by: WINIFRED MILLER on 07/25/17 1010 Insulin Detemir 100 Unit/1 Ml Insuln.pen, 30 UNIT SQ HS, (Reported) Lactulose 20 Gm/30 Ml Solution, 20 GM PO BID, (Reported) Lisinopril 40 Mg Tablet, 40 MG PO DAILY Prescribed by: SUSHIL NEGRO on 03/16/17 1124 Metoprolol Tartrate 50 Mg Tablet, 50 MG PO BID Prescribed by: KASI DAVALOS on 03/03/17 1158 Mirtazapine 15 Mg Tablet, 15 MG PO HS, (Reported) Phenazopyridine HCl 100 Mg Tablet, 100 MG PO TID, (Reported) Quetiapine Fumarate 25 Mg Tablet, 50 MG PO HS, (Reported) Tamsulosin HCl 0.4 Mg Cap, 0.4 MG PO DAILY, (Reported) Trazodone HCl 100 Mg Tablet, 200 MG PO HS, (Reported) TAKES 2 (100MG) TABLETS Venlafaxine HCl 150 Mg Cap.er.24h, 150 MG PO DAILY, (Reported) Patient Home Medication List Home Medication List Reviewed: Yes Review of Systems Constitutional: see HPI Past Mrgzioj-Ybxffy-Dxziqo Hx Patient Social History Alcohol Use: Denies Use Recreational Drug Use: Yes (Not since 1990) Drug of Choice: meth Smoking Status: Unknown if Ever Smoked Recent Foreign Travel: No Contact w/Someone Who Travel: No Recent Infectious Disease Expo: No Recent Hopitalizations: No Physical Abuse: No Sexual Abuse: No Immunizations Up To Date PED Vaccines UTD: Yes Seasonal Allergies Seasonal Allergies: Yes Past Medical History Surgeries: Yes (electroshock therapy, colonoscopy) Respiratory: No Cardiac: Yes High Cholesterol, Hypertension Neurological: Yes Parkinson's Disease, Stroke Genitourinary: Yes Prostate Problems, Bladder Infection, UTI-Chronic Gastrointestinal: Yes Polyps, Irritable Bowel Musculoskeletal: Yes Arthritis, Chronic Back Pain Endocrine: Yes Diabetes, Insulin dep HEENT: No Hearing Impairment: Hard of Hearing Cancer: No Psychosocial: Yes Anxiety, Suicide Attempts, Depression Nursing Suicide Risk Score: 0 Integumentary: No Blood Disorders: No Family Medical History Alcoholism 19 FATHER Bipass surgery G8 BROTHER Brain cancer 19 MOTHER Diabetes mellitus 19 FATHER Respiratory disorder G8 BROTHER No Pertinent Family Hx Physical Exam Vital Signs Vital Signs - First Documented 10/18/17 23:30 Temp 100.7 Pulse 72 Resp 16 B/P (MAP) 78/54 (62) Pulse Ox 94 O2 Delivery Room Air Capillary Refill : Less Than 3 Seconds Height, Weight, BMI Height: 5'7.00" Weight: 170lbs. 8.0oz. [id number]; 26.2 BMI Method:Estimated General Appearance: No Apparent Distress, WD/WN, Other (EXAM NOT DONE DUE TO PT SIGNING OUT AMA ) Neurologic/Psychiatric: Alert, Oriented x3, Normal Mood/Affect Progress/Results/Core Measures Suspected Sepsis Recent Fever Within 48 Hours: Yes Infection Criteria Present: Suspected New Infection New/Unexplained Altered Menta: No Sepsis Screen: No Definite Risk SIRS Temperature:100.7 Pulse: 72 Respiratory Rate: 16 Blood Pressure 78 /54 Mean: 62 Results/Orders My Orders Orders - HAN GOMEZ DO Accucheck Stat ONCE (10/18/17 23:31) Saline Lock/Iv-Start (10/18/17 23:31) Ekg Tracing (10/18/17 23:31) O2 (10/18/17 23:31) Monitor-Rhythm Ecg Trace Only (10/18/17 23:31) Saline Lock/Iv-Start (10/18/17 23:31) Vital Signs/I&O 10/18/17 8 23:30 23:55 Temp 100.7 Pulse 72 72 Resp 16 16 B/P (MAP) 78/54 (62) 78/54 Pulse Ox 94 94 O2 Delivery Room Air Room Air Capillary Refill : Less Than 3 Seconds Blood Pressure Mean: 62 Departure Impression Primary Impression: Left against medical advice Disposition: 07 AGAINST MEDICAL ADVICE Condition: Against Medical Advice Departure-Patient Inst. Referrals: AMBER DUDLEY LISA K DO Oct 19, 2017 05:21
== END 2017-10-18 23:50 | disposition left against medical advice (07) ==
LOC: EDUNIT# 23:25 → ER 23:27
DX: R42 Dizziness and giddiness (principal); R55 Syncope and collapse; I10 Essential (primary) hypertension; E78.00 Pure hypercholesterolemia, unspecified; G20 Parkinson's disease; E11.9 Type 2 diabetes mellitus without complications; F41.9 Anxiety disorder, unspecified; F32.9 Major depressive disorder, single episode, unspecified; M19.90 Unspecified osteoarthritis, unspecified site; Z87.440 Personal history of urinary (tract) infections; Z86.73 Personal history of transient ischemic attack (TIA), and cerebral infarction without residual deficits; Z88.8 Allergy status to other drugs, medicaments and biological substances; Z79.4 Long term (current) use of insulin; W18.39XA Other fall on same level, initial encounter; Y92.129 Unspecified place in nursing home as the place of occurrence of the external cause
CPT/HCPCS: 99283